=== PATIENT | male | born 1960 | race Caucasian/White ===

== ENCOUNTER 2018-05-10 22:47 | Observation (INO) | payer SELFPAY ==
[2018-05-10] MEDS ORDERED: Ketorolac Tromethamine 30 MG/ML VIAL ONE (23:46)
[2018-05-10 23:48] LABS: Troponin I Less than 0.010 ng/mL (< 0.028)
[2018-05-11] MEDS ORDERED: Fentanyl 100 MCG/2 ML VIAL ONE (00:25)
[2018-05-11] MEDS ORDERED: Ondansetron ODT 4 MG TAB PO PRN (00:49)
[2018-05-11] MEDS ORDERED: Ondansetron HCl/PF 4 MG/2 ML Vial IVP PRN (00:49)
[2018-05-11 01:11] VITALS: BMI 39.9
[2018-05-11 02:31] LABS: Troponin I Less than 0.010 ng/mL (< 0.028)
[2018-05-11 02:32] LABS: Anion Gap 17 mmol/L (10-20); BUN (Urea Nitrogen) 15 mg/dL (8.4-25.7); Calc. Creatinine Clearance 80 mL/min (70-130); Calcium 9.6 mg/dL (7.8-10.44); Carbon Dioxide 23 mmol/L (22-29); Chloride 102 mmol/L (98-107); Estimated GFR-MDRD 44; Glucose 153 mg/dL (70-105); Potassium 4.2 mmol/L (3.5-5.1); Sodium 138 mmol/L (136-145)
[2018-05-11 02:59] LABS: #Basophils 0.1 thou/uL (0.0-0.2); #Eosinphils 0.4 thou/uL (0.0-0.7); #Monocytes 1.2 thou/uL (0.11-0.59); #Neutrophils 9.1 thou/uL (1.40-6.50); %Basophils 0.5 % (0.0-1.0); %Eosinophils 3.1 % (0.0-10.0); %Lymphocytes 15.9 % (21.0-51.0); %Monocytes 9.6 % (0.0-10.0); %Neutrophils 70.8 % (42.0-75.0); Elliptocytes SLIGHT = 2-5 cells (100X) (0-1/hpf); Hemoglobin 10.8 g/dL (14.0-18.0); Hypochromia SLIGHT = 6-15 cells (100X) (0-5/hpf); MDiff Complete? YES; Mean Corpuscular HGB CONC 29.9 g/dL (32.0-36.0); Mean Corpuscular Volume 63.5 fL (78.0-98.0); Mean Platelet Volume 6.6 fL (7.4-10.4); PLT Morphology Comment Appears Adequate; Platelet Count 372 thou/uL (130-400); RBC Distribution Width 17.9 % (11.5-14.5); Reflex for Review?? YES; White Blood Cell (WBC) Count 12.9 thou/uL (4.8-10.8)
[2018-05-11] MEDS ORDERED: Cyclobenzaprine 10 MG TAB PO SCH (03:45)
[2018-05-11] MEDS: Acetaminophen 325 MG TAB PO PRN ×2 (03:55→13:48)
[2018-05-11] MEDS: Aspirin 81 mg Enteric Coated Tablet PO SCH (08:31)
[2018-05-11] MEDS: Famotidine 20 MG TAB PO SCH ×2 (08:31→20:06)
[2018-05-11] MEDS ORDERED: Aspirin 81 mg Enteric Coated Tablet PO SCH (09:00)
[2018-05-11] MEDS ORDERED: Dextrose 5% in Water 1,000 ML IV PRN (09:27)
[2018-05-11] MEDS ORDERED: HumaLOG 300 UNITS/3 ML VIAL SC PRN (09:27)
[2018-05-11] MEDS ORDERED: Dextrose 50% Abboject 50 ML SYRINGE SLOW IVP PRN (09:27)
--- NOTE | 2018-05-11 11:37 | HP ---
DATE OF ADMISSION: 05/11/2018 CHIEF COMPLAINT: Chest pain. HISTORY OF PRESENT ILLNESS: The patient is a 58-year-old male [facility]. The patient reports that in 12/2016, he had hear t attack, underwent a heart catheterization and had 3 stents placed at that time. In recovery, the p atnicole states he had a syncopal episode and went unconscious. He had a CT scan that confirmed that irene evans had 5 separate strokes, which he was told was basically a shower of emboli that resulted from the h eart catheterization that caused these strokes. They went through his right upper extremity access. The patient states subsequent to that, he was in a "coma" and was in the hospital for a total of 30 days. He was told that he had persistent occlusion of 85% and the plan was to follow up and have melissa t addressed at a later time; however, the patient essentially met financial ruin [facility] and he has not been able to have any significant followup. Yesterday, the patient started experiencing chest pain. It was around 2:00 in the afternoon. The nery ogden reports he had actually been having some intermittent similar chest pain for the last week and a half, but yesterday it persisted for a bit longer and then suddenly became more severe. Describes the pain as being similar to what he experienced when he had his previous CT. He states that he had associated palpitations. He felt short of breath and described his symptoms as feeling like someone was sitting on his chest. He had no associated nausea, but did have lightheadedness and radiation to the back and to the left shoulder. Subsequent to this pain, the patient started experiencing muscul ar cramps over his chest, neck, back, stomach and legs. He stated that with any movement at all, he would precipitate muscle cramp. He presented to the Emergency Department where he got some pain medi cations and reports that started to at least help manage the pain. He states that he continued to flood ve some symptoms overnight with the cramping, but has had no symptoms today. He denies having had an y particular change in activity. States he is generally debilitated and not capable of doing much. REVIEW OF SYSTEMS: A 10-system review was negative except for those things mentioned in the history of present illness. PAST MEDICAL HISTORY: Notable for the above-mentioned coronary artery disease. He also has osteoart hritis, recurrent kidney stones, hypertension, diabetes, hyperlipidemia, chronic kidney disease, whic h is apparently related to the recurrent kidney stones and also a history of the strokes as mentioned above. The patient has obstructive sleep apnea, but is unable to afford a CPAP machine. PAST SURGICAL HISTORY: Notable for the coronary stents as well as an appendectomy in childhood. FAMILY HISTORY: Mother of colon cancer. Father an accidental . He has no coronary d isease amongst his siblings. SOCIAL HISTORY: Denies alcohol, tobacco or drugs. He is . He is disabled, but unable to candido lify for disability because his makes 600 dollars a month. He lives in a on his mom[place]jr-ce w's property. He is full code. His or his kids would be surrogate decision maker. ALLERGIES: HYDROMORPHONE. ASPIRIN is also listed; however, the patient takes that on a daily basis. CURRENT MEDICATIONS: Vitamin D3 5000 units daily, aspirin 81 mg daily, metformin 1000 mg b.i.d., Top rol 75 mg b.i.d., potassium 10 mEq daily, glimepiride 2 mg daily, lisinopril 40 mg daily, atorvastati n 80 mg daily, Lasix 20 mg daily, meloxicam 15 mg daily, Plavix 75 mg daily. PHYSICAL EXAMINATION: VITAL SIGNS: Temperature 97.2, pulse 85, respirations 16, O2 sat 100% on room air, BP 158/77. GENERAL APPEARANCE: Obese, age appropriate male, in no distress. He is awake, alert, oriented, plea quin and cooperative. HEENT: PERRL. No OP lesions. He has a small oral airway and his pharyngeal orifice cannot be seen. NECK: Thick, supple, symmetric. CARDIOVASCULAR: Regular with no murmurs. He does have an occasional PVC heard. LUNGS: Clear to auscultation bilaterally with good chest wall expansion and air exchange. ABDOMEN: Mildly diffusely tender. No localization, no masses, no guarding, no rebound. No hepatosp lenomegaly. SKIN: Warm and dry without edema. Peripheral pulses are palpable. LABORATORY DATA: White count 12.9, hemoglobin 10.8, MCV is 63.5. Sodium 138, potassium 4.2, chlorid e 102, BUN 15, creatinine 1.63, glucose 153. Troponin is less than 0.1 x2. EKG shows pulmonary dise ase pattern with some left anterior fascicular block, otherwise sinus rhythm with occasional PVCs. C hest x-ray shows cardiac silhouette upper limit of normal, but no focal consolidations. IMPRESSION AND PLAN: 1. Chest pain in a patient with a history of known coronary disease and apparently still some pendin g occlusive disease that was never definitively addressed. The patient has negative troponins and do es not have specific ischemic changes on his EKG. His EKG is abnormal and they do not have a baselin e for comparison. We will continue with telemetry, aspirin. Consult Cardiology. Attempt to obtain his records from [facility] in [place]. 2. Diabetes. Continue with his oral medications. Continue Accu-Cheks and sliding scale. 3. Chronic kidney disease, unclear what his baseline is at this time. 4. Hypertension. Continue with beta blockers and TEETEE inhibitors. 5. Hyperlipidemia. Continue with the atorvastatin. 6. Muscle cramps. We will give some gentle hydration. 7. Mild leukocytosis, unclear etiology, appears to be stable. No evidence of active infection. 8. Microcytic anemia. We will order iron panel and Hemoccult.
[2018-05-11] MEDS ORDERED: Clopidogrel Bisulfate 75 MG TAB PO SCH (11:45)
[2018-05-11] MEDS ORDERED: Furosemide 20 MG TAB PO SCH (11:45)
[2018-05-11] MEDS ORDERED: Lisinopril 20 MG TAB PO SCH (11:45)
[2018-05-11] MEDS ORDERED: Atorvastatin Calcium 40 MG TAB PO SCH (11:45)
[2018-05-11] MEDS ORDERED: Meloxicam 15 MG TAB PO SCH (11:45)
[2018-05-11] MEDS ORDERED: Glimepiride 2 MG TAB PO SCH (11:45)
[2018-05-11] MEDS ORDERED: Metoprolol Tartrate 25 MG TAB PO SCH (11:45)
[2018-05-11] MEDS ORDERED: Potassium Chloride 10 MEQ TAB PO SCH (11:45)
[2018-05-11] MEDS: Nitroglycerin 0.4 MG TAB (25 Tab Bottle) SL PRN ×2 (14:26→14:33)
[2018-05-11 16:10] LABS: Troponin I Less than 0.010 ng/mL (< 0.028)
[2018-05-11] MEDS: metFORMIN 500 MG TAB PO SCH (17:43)
[2018-05-11] MEDS: Ketorolac Tromethamine 30 MG/ML VIAL IVP PRN (20:07)
[2018-05-11] MEDS: Metoprolol Tartrate 25 MG TAB PO SCH (20:07)
[2018-05-12 04:53] LABS: Anion Gap 14 mmol/L (10-20); BUN (Urea Nitrogen) 21 mg/dL (8.4-25.7); Calc. Creatinine Clearance 77 mL/min (70-130); Calcium 8.8 mg/dL (7.8-10.44); Carbon Dioxide 24 mmol/L (22-29); Chloride 97 mmol/L (98-107); Estimated GFR-MDRD 42; Glucose 142 mg/dL (70-105); Potassium 4.2 mmol/L (3.5-5.1); Sodium 131 mmol/L (136-145)
[2018-05-12 04:58] LABS: #Basophils 0.1 thou/uL (0.0-0.2); #Eosinphils 0.7 thou/uL (0.0-0.7); #Lymphocytes 2.8 thou/uL (1.20-3.40); #Monocytes 1.9 thou/uL (0.11-0.59); %Basophils 0.7 % (0.0-1.0); %Eosinophils 4.1 % (0.0-10.0); %Lymphocytes 16.1 % (21.0-51.0); %Monocytes 10.6 % (0.0-10.0); %Neutrophils 68.5 % (42.0-75.0); Hemoglobin 11.1 g/dL (14.0-18.0); Mean Corpuscular HGB CONC 29.5 g/dL (32.0-36.0); Mean Corpuscular Hemoglobin 18.9 pg (27.0-31.0); Mean Platelet Volume 6.8 fL (7.4-10.4); Platelet Count 434 thou/uL (130-400); RBC Distribution Width 17.9 % (11.5-14.5); Red Blood Cell (RBC) Count 5.87 mill/uL (4.70-6.10); White Blood Cell (WBC) Count 17.6 thou/uL (4.8-10.8)
[2018-05-12 08:59] LABS: Iron 23 ug/dL (65-175); Iron Binding Capacity, Total 359 mcg/dL (261-462)
[2018-05-12] MEDS ORDERED: Meloxicam 15 MG TAB PO SCH (09:00)
[2018-05-12] MEDS ORDERED: Senokot S 8.6-50 MG TAB PO SCH (10:30)
--- NOTE | 2018-05-12 11:20 | PDOC.PN ---
- Subjective Encounter Start Date: 05/12/18 Encounter Start Time: 10:30 Feeling some better today. Less pain. He does admit to having a history of iron deficiency anemia. He said it was substantial, but he has not taken any iron supplements. Has not had a BM for several days. - Objective Resuscitation Status: Resuscitation Status FULL:Full Resuscitation Vital Signs & Weight: Vital Signs (12 hours) Temp Pulse Resp BP BP Pulse Ox 05/12/18 07:39 98.1 F 81 18 137/63 97 05/12/18 03:40 97.9 F 67 145/69 H 94 L Weight Weight 248 lb 1.6 oz I&O: 05/11/18 05/12/18 05/13/18 06:59 06:59 06:59 Intake Total 240 1720 Output Total 1800 Balance 240 -80 Result Diagrams: 05/12/18 04:15 05/12/18 04:15 Additional Labs: Accuchecks 05/12/18 05/11/18 05/11/18 05:45 20:38 17:45 POC Glucose 151 H 144 H 271 H 05/11/18 11:13 POC Glucose 126 H Phys Exam - Physical Examination Constitutional: NAD Respiratory: no wheezing, no rales, no rhonchi Cardiovascular: RRR, no significant murmur Gastrointestinal: soft, non-tender, no distention, positive bowel sounds Musculoskeletal: no edema Psychiatric: normal affect, A&O x 3 Dx/Plan (1) Chest pain Code(s): R07.9 - CHEST PAIN, UNSPECIFIED Status: Acute Comment: Stress test today. (2) CAD (coronary artery disease) Code(s): I25.10 - ATHSCL HEART DISEASE OF [place] CORONARY ARTERY W/O ANG PCTRS Status: Acute (3) Diabetes mellitus Code(s): E11.9 - TYPE 2 DIABETES MELLITUS WITHOUT COMPLICATIONS Status: Acute Comment: Well controlled. (4) Hypertension Code(s): I10 - ESSENTIAL (PRIMARY) HYPERTENSION Status: Acute Qualifiers: Hypertension type: essential hypertension Qualified Code(s): I10 - Essential (primary) hypertension Comment: Home meds. (5) Iron deficiency anemia Code(s): D50.9 - IRON DEFICIENCY ANEMIA, UNSPECIFIED Status: Acute Comment: Checking labs. Hx of this. (6) Leukocytosis Code(s): D72.829 - ELEVATED WHITE BLOOD CELL COUNT, UNSPECIFIED Status: Acute Comment: May be secondary to the iron def. No evidence of infection. - Plan * above.
[2018-05-12] MEDS ORDERED: Lorazepam 2 MG/ML VIAL SLOW IVP SCH (13:15)
[2018-05-12] MEDS: Lisinopril 20 MG TAB PO SCH (14:58)
[2018-05-12] MEDS: Atorvastatin Calcium 40 MG TAB PO SCH (14:59)
[2018-05-12] MEDS: Metoprolol Tartrate 25 MG TAB PO SCH ×2 (15:00→20:51)
[2018-05-12] MEDS: Furosemide 20 MG TAB PO SCH (15:01)
[2018-05-12] MEDS: Famotidine 20 MG TAB PO SCH ×2 (15:01→20:51)
[2018-05-12] MEDS: metFORMIN 500 MG TAB PO SCH ×3 (15:02→16:17)
[2018-05-12] MEDS: Aspirin 81 mg Enteric Coated Tablet PO SCH (15:02)
[2018-05-12] MEDS: Glimepiride 2 MG TAB PO SCH (15:02)
[2018-05-12] MEDS: Clopidogrel Bisulfate 75 MG TAB PO SCH (15:02)
[2018-05-12] MEDS: Potassium Chloride 10 MEQ TAB PO SCH (15:02)
[2018-05-12] MEDS: Senokot S 8.6-50 MG TAB PO SCH (15:07)
--- NOTE | 2018-05-12 15:12 | NM ---
RADIONUCLIDE STRESS REST MYOCARDIAL PERFUSION SCAN WITH CT ATTENUATION CORRECTION AND SPECT IMAGING LEFT VENTRICULAR WALL MOTION EVALUATION AND EJECTION FRACTION: HISTORY: Dyslipidemia. Chest pain. FINDINGS: Moderate-sized area of markedly diminished radiotracer uptake involving the base to mid portion of th e lateral wall. No significant reversibility. Adenosine protocol. QGS analysis of gated SPECT images shows no focal wall motion abnormalities. Ejection fraction calcu lated at 43%. IMPRESSION: 1. Lateral wall scar. No evidence if ischemia. 2. Global hypokinesis with depressed ejection fraction of 43%. POS: FARIDEH
[2018-05-12 15:31] LABS: Bilirubin Negative (Negative); Blood, Urine Negative (Negative); Clarity CLEAR (Clear); Glucose, Urine (Dipstick) Negative (Negative); Leukocyte Negative (Negative); Nitrite Negative (Negative); Protein, Urine (Dipstick) Negative (Neg-Trace); Specific Gravity, Urine 1.004 (1.002-1.036); pH, Urine 6.5 (5.0-9.0)
--- NOTE | 2018-05-12 15:59 | CON ---
DATE OF CONSULT: 05/11/18 HISTORY OF PRESENT ILLNESS: The patient is a very pleasant 58-year-old gentleman who presents for evaluation of chest discomfort. The patient has a previous history of coronary artery disease. He suffered a myocardial infarction in 2017. In [place], he underwent emergent PTCA and stent placement. Following the procedure, the patient and suffered a cerebrovascular accident. He was in a coma for a prolonged period of time. The patient states he had several stents placed. The patient stated was doing well until about a month ago started having left- sided chest that radiated to her back and down his left arm. He states this usually lasted up to 15 minutes. On the day of admission, the patient had severe substernal chest discomfort that radiated down his left arm. He felt weak and short of breath. The patient came to the emergency room for further evaluation. The patient states that he has continued to have this persistent discomfort. At times it seems to be less severe. The patient denies any PND or orthopnea. PAST MEDICAL HISTORY: 1. Coronary artery disease. 2. Hypertension. 3. Diabetes mellitus. 4. Chronic renal insufficiency. 5. Dyslipidemia. 6. History of cerebrovascular accident. 7. Sleep apnea. PAST SURGICAL HISTORY: Appendectomy. SOCIAL HISTORY: Nonsmoker. No use of alcohol. FAMILY HISTORY: No strong family history of coronary artery disease. ALLERGIES: HYDROMORPHONE. MEDICATIONS: Toprol 50 XL daily, potassium 10 daily, glimepiride 2 daily, lisinopril 40 daily, Lipitor 80 at bedtime, Lasix 20 daily, Meloxicam 15 daily, and Plavix 75 Daily. REVIEW OF SYSTEMS: Ten-point system otherwise unremarkable. PHYSICAL EXAMINATION: GENERAL: This is an obese gentleman in no acute distress. VITAL SIGNS: Blood pressure 161/74. NECK: Showed no jugular distention. LUNGS: Clear to auscultation. HEART: Regular rate and rhythm, normal S1, S2, no murmurs. ABDOMEN: Distended, nontender. EXTREMITIES: Showed no edema. VASCULAR: Radial pulses are 2+. LABORATORY RESULTS: Sodium 130, potassium 4.2, chloride 102, bicarbonate 23, BUN 17, creatinine was 1.63, glucose 153. White blood cell count 1.9, hemoglobin 10.8, hematocrit 36.2, his platelets are 372. His EKG revealed him to have normal sinus rhythm with Q-waves suggestive of a previous inferior posterior infarct. IMPRESSION: 1. Chest pain suggestive of angina. 2. History of myocardial infarction. 3. History of percutaneous transluminal coronary angioplasty and stent placed. 4. History of cerebrovascular accident. 5. Diabetes mellitus. 6. Hypertension. 7. Obesity. PLAN: This gentleman presents with chest pain suggestive of angina. With the patient's history of a complication following stent placement with initially try to treat the patient medically. The patient has had persistent and severe pain and there has been no acute EKG changes or elevation in his cardiac enzymes. We will add Imdur to his medical regimen. We will plan on stress testing during this hospitalization to assess his cardiac risk. We will follow this patient with you through his hospitalization. BRI
--- NOTE | 2018-05-12 18:09 | EKG ---
Test Reason : Blood Pressure : / mmHG Vent. Rate : 095 BPM Atrial Rate : 095 BPM P-R Int : 120 ms QRS Dur : 076 ms QT Int : 384 ms P-R-T Axes : 000 -67 067 degrees QTc Int : 482 ms Sinus rhythm with Premature supraventricular complexes Pulmonary disease pattern Left anterior fascicular block Inferior-posterior infarct , age undetermined Abnormal ECG Confirmed by SANIYA FOY D.O. ([id number]), map editor CARISSA FLORIAN ([id number]) on 05/12/2018 6:09:20 PM Referred By: Confirmed By:SANIYA FOY D.O.
[2018-05-12] MEDS: Ketorolac Tromethamine 30 MG/ML VIAL IVP PRN (18:33)
[2018-05-13] MEDS: Ketorolac Tromethamine 30 MG/ML VIAL IVP PRN ×2 (00:40→12:30)
[2018-05-13] MEDS: Clopidogrel Bisulfate 75 MG TAB PO SCH (09:56)
[2018-05-13] MEDS: Potassium Chloride 10 MEQ TAB PO SCH (09:58)
[2018-05-13] MEDS: Famotidine 20 MG TAB PO SCH (09:59)
[2018-05-13] MEDS: Atorvastatin Calcium 40 MG TAB PO SCH (09:59)
[2018-05-13] MEDS: Furosemide 20 MG TAB PO SCH (09:59)
[2018-05-13] MEDS: Aspirin 81 mg Enteric Coated Tablet PO SCH (09:59)
[2018-05-13] MEDS: Metoprolol Tartrate 25 MG TAB PO SCH (10:00)
[2018-05-13] MEDS: metFORMIN 500 MG TAB PO SCH (10:01)
[2018-05-13] MEDS: Lisinopril 20 MG TAB PO SCH (10:01)
[2018-05-13] MEDS: Glimepiride 2 MG TAB PO SCH (10:02)
[2018-05-13] MEDS: Senokot S 8.6-50 MG TAB PO SCH (10:02)
[2018-05-13 15:33] VITALS: TEMP 98.3
[2018-05-13 15:34] VITALS: BP 178/78
--- NOTE | 2018-05-14 21:55 | DIS ---
DATE OF ADMISSION: 05/10/2018 DATE OF DISCHARGE: 05/13/2018 DISCHARGE DIAGNOSES: 1. Chest pain. 2. History of coronary artery disease. 3. Diabetes mellitus. 4. Hypertension. 5. Iron deficiency anemia. 6. Leukocytosis secondary to iron deficiency. 7. Obesity. HOSPITAL COURSE: This patient is a 58-year-old male with a history of significant coronary artery di sease, who suffered a myocardial infarction approximately 1-1/2 years prior to admission. At that [facility], he was at [facility] in [place], [place]. The patient underwent a heart catheterization with 3 sten ts placed, but was told he had persistent 85% blockage posteriorly and records indicated that it was likely an OM1 branch lesion. The patient reports that he was supposed to follow up on this, but fazal use of the cost of his initial admission, which had resulted in complications of stroke with coma and prolonged hospital stay, he was unable to follow up due to financial reasons. The patient presented to the [facility] complaining of acute chest pain reminiscent of his prior sy mptoms. There, the patient had a negative workup, and was transferred to [facility] for further ev aluation. Specifically, of note, the patient's troponins were negative. Chest x-ray was upper limit s of normal. His labs were notable for some leukocytosis with anemia and thrombocytopenia. Th e patient was placed in observation on telemetry. He continued to have negative serial cardiac marke rs and his telemetry remained normal sinus rhythm. Cardiology was consulted and the patient underwen t a nuclear medicine stress test, which revealed the prior scar in the lateral wall, but no evidence of reversible ischemia and a global hypokinesis with depressed EF at 43%. With that, the patient is stable for discharge. Of note, the patient did receive some Toradol while in the hospital, which see med to improve his symptoms somewhat. Also, of note, the patient had repeat labs to assess his iron panel. His iron level was 23, TIBC was 359, and percent saturation was 6%. It was felt that the pat ient's leukocytosis and thrombocytopenia were part of his iron deficiency manifestations as he was af ebrile and had no evidence of infection otherwise. The patient's symptoms had essentially resolved a t the time of discharge. PHYSICAL EXAMINATION: VITAL SIGNS: At the time of discharge, his temperature was 98.3, pulse 76, respirations 20, O2 satur ation 97% on room air, BP is 178/78. GENERAL: The patient is awake, alert, oriented, pleasant. HEART: Regular rate and rhythm without murmurs. Mild tenderness to palpation in the chest wall. LUNGS: CTAB. ABDOMEN: Benign. EXTREMITIES: Warm and dry without edema. DISPOSITION: The patient is discharged to home. DISCHARGE INSTRUCTIONS: He is to continue with a diabetic heart healthy diet. His activity level is as tolerated. He will remain on his usual home medications to include lisinopril 40 mg p.o. daily; atorvastatin 80 mg every day; furosemide 20 mg every day; meloxicam 15 mg every day; clopidogrel 75 m g every day; aspirin 81 mg every day; metformin 1000 mg b.i.d.; metoprolol 75 mg b.i.d.; potassium ch loride 10 mEq daily; glimepiride 2 mg every day; vitamin D3, 5000 units daily. He will have addition of isosorbide 60 mg every day, ferrous sulfate 325 every day, nitroglycerin 0.4 mg sublingual every 5 minutes p.r.n. He is to follow up with Dr. Poly Wetzel and Dr. Felix in 3-4 weeks. He can return to the Emergency Department should he have any problems prior to that time.
== END 2018-05-13 14:37 | disposition home or self-care (01) ==
LOC: ERS 22:47 → 2NO 05-11 00:45
PROVIDERS: ADMIT Internal Medicine; ATTEND Internal Medicine
DX: R07.9 Chest pain, unspecified (principal); I25.10 Atherosclerotic heart disease of native coronary artery without angina pectoris; E11.9 Type 2 diabetes mellitus without complications; I10 Essential (primary) hypertension; D50.9 Iron deficiency anemia, unspecified; D72.829 Elevated white blood cell count, unspecified; E66.9 Obesity, unspecified; Z79.02 Long term (current) use of antithrombotics/antiplatelets; Z79.899 Other long term (current) drug therapy; Z79.82 Long term (current) use of aspirin
CPT/HCPCS: 36415; 36416; 78452; 80048; 81003; 82274; 83540; 83550; 84484; 85025; 85060; 90471; 90732; 93005; 93017; 96374; 96375; 96376; A9500; G0009; G0378; J0153; J1885; J2060; J3010

== ENCOUNTER 2018-07-24 21:26 | Observation (INO) | payer OTHER, SELFPAY ==
[2018-07-24] MEDS ORDERED: Morphine 4 MG/ML VIAL ONE (21:43)
[2018-07-24] MEDS ORDERED: Ondansetron PF 4 MG/2 ML Vial ONE (21:44)
--- NOTE | 2018-07-24 21:59 | RAD ---
PORTABLE CHEST 07/24/18 PROVIDED CLINICAL HISTORY: Chest pain. FINDINGS: Comparison 05/10/18. The cardiac and mediastinal silhouette is unchanged in appearance. Lungs appear clear. No pleural flu id or pneumothorax apparent. IMPRESSION: Cardiomegaly without evidence for an acute cardiopulmonary process. POS: TED
[2018-07-24 22:12] LABS: ALT (SGPT) 24 U/L (8-55); AST (SGOT) 20 U/L (5-34); Albumin 3.7 g/dL (3.5-5.0); Alkaline Phosphatase 81 U/L (40-150); Anion Gap 10 mmol/L (10-20); BUN (Urea Nitrogen) 17 mg/dL (8.4-25.7); Bilirubin, Total 0.3 mg/dL (0.2-1.2); CK (CPK) 178 U/L (30-200); Calc. Creatinine Clearance 0 mL/min (70-130); Calcium 9.2 mg/dL (7.8-10.44); Carbon Dioxide 27 mmol/L (22-29); Chloride 102 mmol/L (98-107); Estimated GFR-MDRD 49; Globulin 3.1 g/dL (2.4-3.5); Glucose 173 mg/dL (70-105); Potassium 3.6 mmol/L (3.5-5.1); Protein, Total 6.8 g/dL (6.0-8.3); Sodium 135 mmol/L (136-145)
[2018-07-24 22:15] LABS: #Basophils 0.1 thou/uL (0.0-0.2); #Eosinphils 0.6 thou/uL (0.0-0.7); #Monocytes 1.1 thou/uL (0.11-0.59); #Neutrophils 7.7 thou/uL (1.40-6.50); %Basophils 0.7 % (0.0-1.0); %Eosinophils 5.3 % (0.0-10.0); %Lymphocytes 17.1 % (21.0-51.0); %Monocytes 9.4 % (0.0-10.0); %Neutrophils 67.5 % (42.0-75.0); Elliptocytes SLIGHT = 2-5 cells (100X) (0-1/hpf); Hemoglobin 11.8 g/dL (14.0-18.0); MDiff Complete? YES; Mean Corpuscular HGB CONC 29.8 g/dL (32.0-36.0); Mean Corpuscular Hemoglobin 20.4 pg (27.0-31.0); Mean Corpuscular Volume 68.4 fL (78.0-98.0); Mean Platelet Volume 6.9 fL (7.4-10.4); Microcytosis SLIGHT = 6-15 cells (100X) (0-5/hpf); Platelet Count 281 thou/uL (130-400); Platelet Morphology Comment Appears Adequate; RBC Distribution Width 18.8 % (11.5-14.5); Red Blood Cell (RBC) Count 5.77 mill/uL (4.70-6.10); White Blood Cell (WBC) Count 11.4 thou/uL (4.8-10.8)
--- NOTE | 2018-07-24 23:32 | PDOC.FPRHP ---
- History of Present Illness Chief Complaint: Chest pain History of Present Illness: Pt is a 58 yo M with HTN, CAD, DM2 presenting for substernal and left sided chest pain at rest for the last week, worsening significantly today while sitting watching TV. Pain is substernal and left-sided, feels like pressure, radiates down left arm with numbness down left arm, and lasts up to 1.5 hours, rated 8/10. Pain is exertional, and nitro at home did not improve his pain. Nitro, Morphine, and tylenol here improved his pain to 5-6/10. He also ascribes exertional dyspnea, bilateral leg swelling, denies nausea or sweating. He has a history of cardiac stent placementx3 with strokes afterwards (patient's family states, "5 strokes") in 2016. He sees Dr. Felix. He had a recent cardiac stress test here in May 2018. Pt denies melena or hematochezia, but states he had a positive stool test for blood recently with his PCP and has a colonoscopy scheduled. Denies GERD symptoms. In the ED, EKG was WNL, he was given nitropaste, morphine, IV tylenol, ASA 325, and zofran. - Allergies/Adverse Reactions Allergies Allergy/AdvReac Type Severity Reaction Status Date / Time hydromorphone [From Dilaudid] Allergy Verified 05/11/18 01:07 aspirin AdvReac Verified 05/11/18 01:17 - Home Medications Medication Instructions Recorded Confirmed Type Aspirin [Low Dose Aspirin EC] 81 mg PO DAILY 05/11/18 07/25/18 History Atorvastatin Calcium 80 mg PO DAILY 05/11/18 07/25/18 History Cholecalciferol (Vitamin D3) 5,000 unit PO DAILY 05/11/18 07/25/18 History [Vitamin D3] Clopidogrel Bisulfate [Plavix] 75 mg PO DAILY 05/11/18 07/25/18 History Furosemide 20 mg PO DAILY 05/11/18 07/25/18 History Glimepiride 2 mg PO QAM-WM 05/11/18 07/25/18 History Lisinopril 40 mg PO DAILY 05/11/18 07/25/18 History Metoprolol Tartrate 75 mg PO BID 05/11/18 07/25/18 History Potassium Chloride [Klor-Con 10] 10 meq PO DAILY 05/11/18 07/25/18 History metFORMIN HCl [Metformin HCl] 1,000 mg PO BID 05/11/18 07/25/18 History Ferrous Sulfate 325 mg PO DAILY #30 tablet 05/13/18 07/25/18 Rx Isosorbide Mononitrate [Imdur] 60 mg PO DAILY #30 tab 05/13/18 07/25/18 Rx Nitroglycerin 0.4 mg SL Q5MIN PRN #30 tab.subl 05/13/18 07/25/18 Rx - History PMHx: Cardiac stents 2017 with resulting "5 strokes", ureter stents for renal lithiasis, DM2, HTN, HLD, anemia, gout PSHx: Cardiac stents in 2017, ureteral stents for renal lithiasis FHx: colon cancer @ age 31 in mother, uncle with brain cancer, uncle with prostate cancer; otherwise noncontributory Social: Denies tobacco, alcohol, or drug use - Review of Systems General: reports: other (denies diaphoresis). denies: fever/chills, weight/ appetite/sleep changes Eyes: denies: eye pain, vision changes, other (denies hearing changes or ear pain) ENT: reports: nasal congestion, rhinorrhea Respiratory: reports: cough, congestion, shortness of breath, exercise intolerance Cardiovascular: reports: chest pain, palpitation, edema, orthopnea, other ( report he bleeds easily) Gastrointestinal: reports: diarrhea (chronic), GI bleeding (per PCP vist). denies: nausea, vomiting, constipation, abdominal pain Genitourinary: denies: dysuria, other (denies hematuria) Skin: reports: lesions (itchy lesion right scalp). denies: rashes Musculoskeletal: reports: arthritis/arthralgias (hands and knees) Neurological: reports: numbness (bilateral feet). denies: weakness Psychological: denies: anxiety, depression - Vital signs BP: [ 147/77] HR: [64] RR: [16] Tmax: [98.6] Pox: 99% on [RA] Wt: [118 kg] - Physical Exam Constitutional: NAD, awake, alert and oriented HEENT: normocephalic and atraumatic, PERRLA, EOMI, TM's clear and intact, grossly normal hearing, MMM, oropharynx clear Neck: supple, no LAD Heart: RRR, normal S1/S2, pulses present, no edema -Heart: S3 present Lungs: CTAB, no respiratory distress, good air movement, no rales/rhonchi, no wheezing Abdomen: soft, non-tender, bowel sounds present, other (rounded abdomen) Musculoskeletal: normal structure, normal tone Neurological: no focal deficit Skin: no rash/lesions, good turgor, capillary refill <2 seconds Heme/Lymphatic: no unusual bruising or bleeding, no petechia Psychiatric: normal mood and affect, good judgment and insight, other (poor memory, looked to for many answers) FMR H&P: Results - Labs Result Diagrams: 07/24/18 21:39 07/24/18 21:39 Lab results: WBC 11.4 thou/uL (4.8-10.8) H 07/24/18 21:39 Hgb 11.8 g/dL (14.0-18.0) L 07/24/18 21:39 Hct 39.5 % (42.0-52.0) L 07/24/18 21:39 MCV 68.4 fL (78.0-98.0) L 07/24/18 21:39 Plt Count 281 thou/uL (130-400) 07/24/18 21:39 Neutrophils % 67.5 % (42.0-75.0) 07/24/18 21:39 Sodium 135 mmol/L (136-145) L 07/24/18 21:39 Potassium 3.6 mmol/L (3.5-5.1) 07/24/18 21:39 Chloride 102 mmol/L (98-107) 07/24/18 21:39 Carbon Dioxide 27 mmol/L (22-29) 07/24/18 21:39 BUN 17 mg/dL (8.4-25.7) 07/24/18 21:39 Creatinine 1.49 mg/dL (0.7-1.3) H 07/24/18 21:39 Glucose 173 mg/dL (70-105) H 07/24/18 21:39 Calcium 9.2 mg/dL (7.8-10.44) 07/24/18 21:39 Total Bilirubin 0.3 mg/dL (0.2-1.2) 07/24/18 21:39 AST 20 U/L (5-34) 07/24/18 21:39 ALT 24 U/L (8-55) 07/24/18 21:39 Alkaline Phosphatase 81 U/L (40-150) 07/24/18 21:39 Creatine Kinase 178 U/L (30-200) 07/24/18 21:39 Serum Total Protein 6.8 g/dL (6.0-8.3) 07/24/18 21:39 Albumin 3.7 g/dL (3.5-5.0) 07/24/18 21:39 - EKG Interpretation EKG: WNL FMR H&P: A/P - Problem List (1) CAD (coronary artery disease) Current Visit: No Status: Acute Code(s): I25.10 - ATHSCL HEART DISEASE OF [place] CORONARY ARTERY W/O ANG PCTRS (2) Chest pain Current Visit: No Status: Acute Code(s): R07.9 - CHEST PAIN, UNSPECIFIED Comment: Stress test today. (3) Diabetes mellitus Current Visit: No Status: Chronic Code(s): E11.9 - TYPE 2 DIABETES MELLITUS WITHOUT COMPLICATIONS Comment: Well controlled. (4) Hypertension Current Visit: No Status: Chronic Code(s): I10 - ESSENTIAL (PRIMARY) HYPERTENSION Qualifiers: Hypertension type: essential hypertension Qualified Code(s): I10 - Essential (primary) hypertension Comment: Home meds. (5) Hx of gout Current Visit: Yes Status: Chronic Code(s): Z87.39 - PERSONAL HISTORY OF DISEASES OF THE MS SYS AND CONN TISS - Plan 58 yo M presents for typical chest pain #Typical Chest pain, [place] vs GERD vs PE vs other -Substernal, pressure, possibly relieved with nitro, worse with exertion. Heart score of 5. -Vitals stable -Trop negx1, trend -CKMB pending -BNP in 200s -EKG WNL -Recent stress test in May 2018 -Showed lateral wall scar, global hypokinesis with EF 43% -Cardiac hx of stent placement x3 in 2017 with strokes postop -Patient follows with Dr. Felix -Admit to tele obs -Consult Dr. Felix, cardiology in the AM -GI cocktail, patient denies GERD sx but has recent hx of +FOBT -Nitro PRN #DM2 #CHF -BNP elevated -Consider echo -Does not appear fluid overloaded at this time #HTN -home meds #HLD/CAD #Anemia #Hx of Gout Admit to Tele obs Ppx: lovenox Full code FMR H&P: Upper Level - Pertinent history 58 yo CM with PMH CAD s/p stent x3, HTN, DM2, iron deficiency anemia presenting with chest pain. 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 Pt notes it does not compare to [place] CP he had in 2017. Pt states he had minimal relief of pain after receiving nitro from EMS. Pt reports intermittent CP similar to this over the last two weeks. ROS otherwise negative. PCP: Poly Wetzel, [employer] Hydramatic Specialist: Dr. Geraldo Felix - Pertinent findings VSS Gen: obese in NAD CV: RRR, no chest wall TTP Resp: unlabored, CTAB Abd: obese, soft, NTTP - Plan Date/Time: 07/24/18 5052 I, Tan Storey MD PGY3, have evaluated this patient and agree with findings/ plan as outlined by dietary internship resident. Pertinent changes/additions are listed here. 1. Typical chest pain in setting of CAD -Pt presents with substernal CP that is exertional and mildly improved with nitroglycerin. Negative troponin. Pt has a history of CAD with stent x3 in 2017. With risk factors and presentation, pt has a HEART score of 5. Review of records shows that pt had a cardiolite stress test in May 2018 during last hospitalization. Last LHC was in December of 2016 with [place] and stent placement. -Will admit pt to telemetry observation for routine CP workup with cardiac enzymes q3h. -Will plan to consult cardiology in AM since pt had stress test in May 2018. -Nitro PRN. 2. Elevated BNP -Pt has no signs/symptoms of fluid overload. Per last stress test EF 43%. -Consider TTE if pt has not had one outpatient. 3. Iron deficiency anemia -Near baseline. Continue home medications and monitor. 4. CKD3 -At baseline. 5. HTN 6. DM2 Home medications will be continued for chronic conditions. FULL code PPx: Lovenox for VTE, no GI indicated. disposition: Admit to telemetry observation for anticipated length of stay less than two midnights, pending clinical course. Addendum - Attending - Attending Attestation Date/Time: 07/24/18 7237 I personally evaluated the patient and discussed the management with Dr. Torsten Sifuentes /[place]. I agree with the History, Examination, Assessment and Plan documented above with any addition or exceptions noted below. History of CAD here for recurrent chest pain suspicious for angina. Initial enzymes negative and EKG wnl. Monitor and consult cardiology in AM.
[2018-07-25] MEDS ORDERED: Lidocaine 2% Viscous Solution 10 ML, Aluminum & Magnesium Hydroxide 30 ML SSW SCH (00:30)
[2018-07-25] MEDS ORDERED: Enoxaparin Sodium 40 MG/0.4 ML SYRINGE SC SCH ×2 (00:39→21:00)
[2018-07-25] MEDS ORDERED: Ondansetron ODT 4 MG TAB PO PRN (00:39)
[2018-07-25 00:43] VITALS: BMI 41.4
[2018-07-25] MEDS ORDERED: Acetaminophen 325 MG TAB PO PRN (00:53)
[2018-07-25] MEDS ORDERED: Ondansetron PF 4 MG/2 ML Vial IVP PRN (00:53)
[2018-07-25] MEDS ORDERED: Ondansetron ODT 4 MG TAB SL PRN (00:53)
[2018-07-25] MEDS ORDERED: Nitroglycerin 0.4 MG TAB (25 Tab Bottle) SL PRN (00:56)
[2018-07-25 01:48] LABS: CKMB 2.1 ng/mL (0-6.6); Troponin I Less than 0.010 ng/mL (< 0.028)
[2018-07-25 04:44] LABS: Troponin I Less than 0.010 ng/mL (< 0.028)
--- NOTE | 2018-07-25 05:54 | PDOC.FM ---
- Subjective Subjective: 58 yo male seen at bedside this AM. Patient states he continues to have the substernal chest pain with radiation. He states it was improved with nitro and GI cocktail. Patient states that he also has problems with urinary retention at times. He states that he has had trouble since his "strokes." He also states that he needs to be cathed when he has those problems. He states that he hasn't had SOB, abdominal pain, cough, fever, n/v/d. No other complaints. - Objective MAR Reviewed: Yes Vital Signs & Weight: Vital Signs (12 hours) Temp Pulse Resp BP BP Pulse Ox 07/25/18 05:01 97.4 F L 73 16 151/69 H 96 07/25/18 00:30 98.1 F 65 13 178/82 H 98 Weight Weight 116.483 kg I&O: 07/23/18 07/24/18 07/25/18 06:59 06:59 06:59 Intake Total 360 Balance 360 Result Diagrams: 07/24/18 21:39 07/24/18 21:39 Phys Exam - Physical Examination Constitutional: NAD HEENT: moist MMs Neck: no nodes, supple Respiratory: no wheezing, clear to auscultation bilateral Cardiovascular: RRR, no significant murmur Gastrointestinal: soft, non-tender, positive bowel sounds Musculoskeletal: no edema, pulses present Neurological: non-focal, normal sensation, moves all 4 limbs Lymphatic: no nodes Psychiatric: normal affect, A&O x 3 Skin: no rash, cap refill <2 seconds Dx/Plan (1) Chest pain at rest Code(s): R07.9 - CHEST PAIN, UNSPECIFIED Status: Acute (2) Hx of gout Code(s): Z87.39 - PERSONAL HISTORY OF DISEASES OF THE MS SYS AND CONN TISS Status: Chronic (3) CAD (coronary artery disease) Code(s): I25.10 - ATHSCL HEART DISEASE OF [place] CORONARY ARTERY W/O ANG PCTRS Status: Acute (4) Iron deficiency anemia Code(s): D50.9 - IRON DEFICIENCY ANEMIA, UNSPECIFIED Status: Acute (5) Diabetes mellitus Code(s): E11.9 - TYPE 2 DIABETES MELLITUS WITHOUT COMPLICATIONS Status: Chronic (6) Hypertension Code(s): I10 - ESSENTIAL (PRIMARY) HYPERTENSION Status: Chronic Qualifiers: Hypertension type: essential hypertension Qualified Code(s): I10 - Essential (primary) hypertension (7) Chronic kidney disease (CKD) Code(s): N18.9 - CHRONIC KIDNEY DISEASE, UNSPECIFIED Status: Acute (8) Urinary retention Code(s): R33.9 - RETENTION OF URINE, UNSPECIFIED Status: Acute - Plan Plan: Typical Chest pain, [place] vs GERD vs PE vs other -Substernal, pressure, possibly relieved with nitro, worse with exertion. Heart score of 5. -Vitals stable -Troponin negative -EKG WNL -Recent stress test in May 2018 -Showed lateral wall scar, global hypokinesis with EF 43% -Cardiac hx of stent placement x3 in 2017 -Patient follows with Dr. Felix, consulted appreciate his recs. -NPO until Cardiology evaluation -Nitro PRN DM2 - Continue home meds CHF -BNP elevated -Consider echo, but will let Dr. Felix determine since he may have had recent echo in his office. -Does not appear fluid overloaded at this time HTN -home meds HLD/CAD - Continue home meds CKD vs. BERONICA - Appears stable from May 2018 - Recommend outpatient follow up Iron Deficiency Anemia - At baseline - Continue to trend - Outpatient follow up. Urinary Retention - Per patient history - Ordered bladder scan and intermittent cath - Offered Flomax, but patient has declined and hopes it is temporary. Will re- evaluate. Disposition: Stable, will continue plan of care and await Cardiology recommendations. Addendum - Attending - Attending Attestation Date/Time: 07/25/18 2258 I personally evaluated the patient and discussed the management with Dr. Shin. I agree with the History, Examination, Assessment and Plan documented above with any addition or exceptions noted below. Patient stable, continues to complain of mild chest pain. Awaiting cardiology recs due to history of CAD and heart cath and recent stress testing.
[2018-07-25] MEDS ORDERED: hydrALAZINE 20 MG/ML VIAL SLOW IVP PRN (06:00)
[2018-07-25] MEDS ORDERED: Furosemide 20 MG TAB PO SCH (09:00)
[2018-07-25] MEDS ORDERED: metFORMIN 500 MG TAB PO SCH (09:00)
[2018-07-25] MEDS: Aspirin 81 mg Enteric Coated Tablet PO SCH (09:00)
[2018-07-25] MEDS: Atorvastatin Calcium 40 MG TAB PO SCH (09:02)
[2018-07-25] MEDS: Clopidogrel Bisulfate 75 MG TAB PO SCH (09:02)
[2018-07-25] MEDS: Potassium Chloride 10 MEQ TAB PO SCH (09:03)
[2018-07-25] MEDS: Lisinopril 20 MG TAB PO SCH (09:03)
[2018-07-25] MEDS: Metoprolol Tartrate 25 MG TAB PO SCH ×2 (09:03→20:28)
[2018-07-25] MEDS ORDERED: Lidocaine 1% (PF) 30 ML VIAL ONE (09:27)
[2018-07-25] MEDS ORDERED: Midazolam HCl 2 mg/2 ml Vial ONE (09:30)
[2018-07-25] MEDS ORDERED: Sodium Chloride 0.9% 200 ML IV PRN (10:15)
[2018-07-25] MEDS: Ferrous Sulfate 325 MG TAB PO SCH (10:54)
[2018-07-25] MEDS: Glimepiride 2 MG TAB PO SCH (10:55)
--- NOTE | 2018-07-25 12:55 | EKG ---
Test Reason : CHEST PAIN Blood Pressure : / mmHG Vent. Rate : 079 BPM Atrial Rate : 079 BPM P-R Int : 160 ms QRS Dur : 082 ms QT Int : 410 ms P-R-T Axes : 031 -77 097 degrees QTc Int : 470 ms Normal sinus rhythm with sinus arrhythmia Possible Left atrial enlargement Pulmonary disease pattern Left anterior fascicular block Abnormal ECG Confirmed by BRENDAN GALLEGO ([id number]), editor publications CARISSA FLORIAN ([id number]) on 07/25/2018 12:55:33 PM Referred By: Confirmed By:BRENDAN GALLEGO
[2018-07-25] MEDS ORDERED: Iopamidol 370 76% 100 ML VIAL ONE (15:01)
[2018-07-26] MEDS ORDERED: Metoprolol Tartrate 50 MG TAB PO SCH ×2 (03:30→21:00)
--- NOTE | 2018-07-26 04:07 | CON ---
DATE OF CONSULTATION: HISTORY OF PRESENT ILLNESS: The patient is a 58-year-old gentleman with a history of coronary artery disease, who presents with recurrent chest discomfort. The patient, a year ago, suffered a myocardial infarction. He had several stents placed. This was done in [place]. The patient subsequently has had multiple episodes of substernal chest discomfort. He also following the cardiac procedure, suffered a cerebral vascular accident the day after his stent placement. The patient was admitted in May of 2018 with recurrent chest pain. He underwent a Cardiolite stress test that revealed to have no evidence of ischemia. The patient has been on medical therapy. He has been using sublingual nitroglycerin. The patient states for the past week, he has had persistent left-sided chest discomfort. This chest pain is left-sided and does not radiate. He came to the emergency room with recurrent pain. He said the only relief has been with morphine. The patient reports that he continues to have chest discomfort. PAST MEDICAL HISTORY: 1. Coronary artery disease. 2. Hypertension. 3. Cardiomyopathy. 4. Dyslipidemia. 5. Renal insufficiency. 6. Diabetes mellitus. PAST SURGICAL HISTORY: Appendectomy. ALLERGIES: MEDICATIONS: Include, 1. Aspirin 81 daily. 2. Lisinopril 40 daily. 3. Metoprolol tartrate 75 b.i.d. 4. Potassium 10 daily. 5. Lipitor 80 at bedtime. 6. Lasix 20 daily. 7. Glimepiride 2 mg p.o. daily. 8. Metformin 1000 b.i.d. 9. Plavix 75 daily. 10. Iron sulfate 325 daily. 11. Imdur 60 q.a.m. SOCIAL HISTORY: Nonsmoker. FAMILY HISTORY: No strong family history of heart disease REVIEW OF SYSTEMS: Ten-point systems otherwise unremarkable. PHYSICAL EXAMINATION: GENERAL: Obese gentleman, in no acute distress. VITAL SIGNS: Blood pressure 171/82. NECK: No jugular venous distention. LUNGS: Clear to auscultation. HEART: Regular rate and rhythm. Normal S1, S2. ABDOMEN: Distended. EXTREMITIES: Show no edema. VASCULAR: Radial pulses 2+. LABORATORY DATA: Sodium 135, potassium 3.6, chloride 102, bicarbonate 27, BUN 17, creatinine 1.49. Troponin less than 0.01. His white blood cell count 11.4, hemoglobin 11.8, hematocrit 39.5, and platelets 281. His EKG revealed normal sinus rhythm with incomplete right bundle branch block. UA suggestive of previous inferior infarct. IMPRESSION: 1. Chest pain with some features suggestive of angina. 2. History of PTCA and stent placement. 3. Ischemic cardiomyopathy. 4. Hypertension. 5. Diabetes mellitus. 6. Dyslipidemia. 7. Obesity. This gentleman presents with chest pain with some features suggestive of angina. However, there are no EKG changes and his cardiac enzymes revealed no evidence of myocardial infarction. The patient's recent stress test showed no evidence of ischemia. Because of his persistent symptoms, I have discussed the option of undergoing a repeat catheterization. The patient states he strongly prefers to undergo repeat evaluation. He understands that there is risk involving the procedure including IL, bleeding, recurrent CVA, cardiac arrhythmias, and cardiac . Despite these risks, the patient wished to proceed. PLAN: Proceed with cardiac catheterization. Job ID: [id number] BRI
--- NOTE | 2018-07-26 06:08 | PDOC.FM ---
- Subjective Subjective: 58 yo male seen at bedside this AM. Patient states he feels better overall. He states his chest pain is resolved. He states that he does not have insurance, but Dr. Felix set him up with a month of free samples of Ranexa. He denies sob, n/v/d, fevers, or chills. Patient states he is ready to go home today. - Objective MAR Reviewed: Yes Vital Signs & Weight: Vital Signs (12 hours) Temp Pulse Resp BP BP Pulse Ox 07/26/18 04:23 80 142/75 H 07/26/18 03:05 97.9 F 77 18 197/97 H 99 07/26/18 00:44 72 176/87 H 07/25/18 23:36 85 07/25/18 23:28 98.2 F 72 16 180/93 H 97 07/25/18 20:05 97.4 F L 85 22 H 200/93 H 93 L Weight Weight 115.031 kg I&O: 07/24/18 07/25/18 07/26/18 06:59 06:59 06:59 Intake Total 360 1220 Output Total 1804 Balance 360 -584 Result Diagrams: 07/24/18 21:39 07/24/18 21:39 Phys Exam - Physical Examination Constitutional: NAD HEENT: moist MMs Neck: supple, full ROM Respiratory: no wheezing, clear to auscultation bilateral Cardiovascular: RRR, no significant murmur Gastrointestinal: soft, non-tender, no distention, positive bowel sounds Musculoskeletal: no edema, pulses present Neurological: non-focal, normal sensation, moves all 4 limbs Psychiatric: normal affect, A&O x 3 Skin: no rash Dx/Plan (1) Chest pain at rest Code(s): R07.9 - CHEST PAIN, UNSPECIFIED Status: Acute (2) Hx of gout Code(s): Z87.39 - PERSONAL HISTORY OF DISEASES OF THE MS SYS AND CONN TISS Status: Chronic (3) CAD (coronary artery disease) Code(s): I25.10 - ATHSCL HEART DISEASE OF [place] CORONARY ARTERY W/O ANG PCTRS Status: Acute (4) Iron deficiency anemia Code(s): D50.9 - IRON DEFICIENCY ANEMIA, UNSPECIFIED Status: Acute (5) Diabetes mellitus Code(s): E11.9 - TYPE 2 DIABETES MELLITUS WITHOUT COMPLICATIONS Status: Chronic (6) Hypertension Code(s): I10 - ESSENTIAL (PRIMARY) HYPERTENSION Status: Chronic Qualifiers: Hypertension type: essential hypertension Qualified Code(s): I10 - Essential (primary) hypertension (7) Chronic kidney disease (CKD) Code(s): N18.9 - CHRONIC KIDNEY DISEASE, UNSPECIFIED Status: Acute (8) Urinary retention Code(s): R33.9 - RETENTION OF URINE, UNSPECIFIED Status: Acute - Plan Plan: Typical Chest pain, [place] vs GERD vs PE vs other - Substernal, pressure, possibly relieved with nitro, worse with exertion. Heart score of 5. - BP elevated otherwise vitals WNL - Troponin negative - EKG WNL - Recent stress test in May 2018 -Showed lateral wall scar, global hypokinesis with EF 43% - Cardiac hx of stent placement x3 in 2017 - Patient follows with Dr. Felix, consulted appreciate his recs. - Repeat Cardiac Catheterization is unremarkable. - Nitro PRN - On Imdur at home - Cardiology initiated Ranexa DM2 - Continue home meds CHF - BNP elevated - Consider echo, but will let Dr. Felix determine since he may have had recent echo in his office. - Does not appear fluid overloaded at this time HTN - home meds - HTN overnight - Required PRN medication - Will trend and likely increase home regimen prior to discharge HLD/CAD - Continue home meds CKD vs. BERONICA - Appears stable from May 2018 - Recommend outpatient follow up Iron Deficiency Anemia - At baseline - Continue to trend - Outpatient follow up. Urinary Retention - Per patient history - Resolved Disposition: Stable, will continue plan of care. Patient is likely stable for discharge today. Addendum - Attending - Attending Attestation Date/Time: 07/26/18 0901 I personally evaluated the patient and discussed the management with Dr. Shin. I agree with the History, Examination, Assessment and Plan documented above with any addition or exceptions noted below. Patient doing well, no recurrent chest pain. S/p cath yesterday. Await further cardiology recs but anticipate discharge later today.
[2018-07-26] MEDS ORDERED: Furosemide 20 MG TAB PO SCH (06:30)
[2018-07-26] MEDS: Potassium Chloride 10 MEQ TAB PO SCH (08:28)
[2018-07-26] MEDS: Ferrous Sulfate 325 MG TAB PO SCH (08:28)
[2018-07-26] MEDS: Metoprolol Tartrate 25 MG TAB PO SCH (08:29)
[2018-07-26] MEDS: Atorvastatin Calcium 40 MG TAB PO SCH (08:29)
[2018-07-26] MEDS: Aspirin 81 mg Enteric Coated Tablet PO SCH (08:30)
[2018-07-26] MEDS: Lisinopril 20 MG TAB PO SCH (08:30)
[2018-07-26] MEDS: Clopidogrel Bisulfate 75 MG TAB PO SCH (08:31)
[2018-07-26] MEDS: Glimepiride 2 MG TAB PO SCH (08:31)
[2018-07-26 08:34] VITALS: BP 182/82; TEMP 97.8
--- NOTE | 2018-07-26 15:15 | DIS ---
DATE OF ADMISSION: 07/24/2018 DATE OF DISCHARGE: 07/26/2018 RESIDENT: Harrison Shin M.D. ADMITTING ATTENDING: Mark Brown MD. DISCHARGE ATTENDING: Mark Brown MD. CONSULTATIONS: Cardiology and Dr. Felix. PROCEDURES: On 07/24/2018, the patient underwent a chest x-ray that showed cardiomegaly without evidence for an acute cardiopulmonary process. On 07/24/2018, the patient underwent a cardiac catheterization by Dr. Felix. He recommended medical management. PRIMARY DIAGNOSES: 1. Typical angina. 2. Coronary artery disease with previous stent placement. 3. Ischemic cardiomyopathy. 4. Hypertension. 5. Diabetes mellitus. 6. Hyperlipidemia. 7. Obesity. 8. Iron-deficiency anemia. 9. Chronic kidney disease, stage 3. DISCHARGE MEDICATIONS: 1. Lisinopril 40 mg daily. 2. Atorvastatin 80 mg p.o. daily. 3. Furosemide 20 mg p.o. daily. 4. Plavix 75 mg p.o. daily. 5. Aspirin 81 mg p.o. daily. 6. Metformin 1000 mg p.o. b.i.d. 7. Metoprolol tartrate 75 mg p.o. b.i.d. 8. Potassium chloride 10 mEq p.o. daily. 9. Glimepiride 2 mg p.o. q.a.m. with meals. 10. Vitamin D3 5000 units p.o. daily. 11. Imdur 60 p.o. daily. 12. Ferrous sulfate 325 mg p.o. daily. 13. Nitroglycerin 0.4 mg sublingual q.5 minutes p.r.n. 14. Ranexa 1000 mg p.o. b.i.d. DISCONTINUED MEDICATIONS: None. HISTORY OF PRESENT ILLNESS AND HOSPITAL COURSE: This patient is a 58-year-old male with history of hypertension, CAD, and diabetes, who presented with substernal and left-sided chest pain for the last week, that worsened on the day of admission. The patient states the substernal and left-sided feels like pressure and radiates down his left arm with numbness down to his left arm and lasts up 1.5 hours. The patient states the pain was 8/10 and is exertional. The nitro at home did not improve his pain. The patient also describes exertional dyspnea and bilateral leg swelling during this time as well. The patient has seen Dr. Felix as an outpatient with the recent cardiac stress testing in May that was unremarkable. During the hospitalization, the patient was seen by Cardiology, Dr. Felix. Dr. Felix recommended due to his relatively unremarkable stress testing in May 2018 that he undergo a cardiac catheterization for further investigation and evaluation of his coronary arteries. The patient was agreeable to this plan. The patient then underwent cardiac catheterization and was essentially ruled to be a medical management case. The patient was then started on Ranexa by Cardiology. The patient had some notable lab values of troponin Is less than 0.010 x3, a BNP of 242.8, and a creatinine at 1.49, which seems to be his baseline. The patient was counseled extensively on return precautions including chest pain that gets worse with exertion, with headaches, and with unilateral weakness. The patient has had some elevated blood pressures during this time as high as 190s over 90s; however, the patient was asymptomatic. Again, he was cautioned on return to emergency department precautions. However, I think the best option would be to have outpatient followup and titration of his blood pressure medicines. The patient was agreeable to this plan. Otherwise, the patient tolerated the hospitalization well and had no other complications. DISPOSITION: Stable. DISCHARGE INSTRUCTIONS: 1. Location: He will be discharged home under the care of himself. 2. Diet: Heart healthy diet and diabetic diet. 3. Activity: As tolerated with cardiopulmonary limitations. 4. Followup: Followup will be with his primary care provider in [place], [place], as well as Dr. Steve Felix in 3 to 4 weeks for further followup of his cardiac disease. We wish this patient the best luck and hope he has no further complications from this disease process. Job ID: [id number] [facility]
== END 2018-07-26 10:23 | disposition home or self-care (01) ==
LOC: ERS 21:26 → 2SW 23:35
PROVIDERS: ADMIT Student in an Organized Health Care Education/Training Program; ATTEND Student in an Organized Health Care Education/Training Program
PROC: 4A023N7 Measurement of Cardiac Sampling and Pressure, Left Heart, Percutaneous Approach (ICD-10-PCS; principal; 2018-07-25)
PROC: B2111ZZ Fluoroscopy of Multiple Coronary Arteries using Low Osmolar Contrast (ICD-10-PCS; 2018-07-25)
DX: I25.118 Atherosclerotic heart disease of native coronary artery with other forms of angina pectoris (principal); I12.9 Hypertensive chronic kidney disease with stage 1 through stage 4 chronic kidney disease, or unspecified chronic kidney disease; E11.22 Type 2 diabetes mellitus with diabetic chronic kidney disease; N18.3 Chronic kidney disease, stage 3 (moderate); M10.9 Gout, unspecified; E78.2 Mixed hyperlipidemia; D50.9 Iron deficiency anemia, unspecified; I25.5 Ischemic cardiomyopathy; E66.9 Obesity, unspecified; Z68.41 Body mass index [BMI] 40.0-44.9, adult; Z86.73 Personal history of transient ischemic attack (TIA), and cerebral infarction without residual deficits; Z79.02 Long term (current) use of antithrombotics/antiplatelets; Z79.82 Long term (current) use of aspirin; Z79.84 Long term (current) use of oral hypoglycemic drugs; Z79.899 Other long term (current) drug therapy; Z95.5 Presence of coronary angioplasty implant and graft
CPT/HCPCS: 36415; 51798; 71045; 80053; 82550; 83880; 84484; 85025; 93005; 93458; 96372; 96374; 96375; 99152; C1769; G0378; J0131; J0360; J1644; J1650; J2001; J2250; J2270; J2405

== ENCOUNTER 2019-05-25 03:00 | Emergency (ER) | payer MEDICAID, OTHER ==
[2019-05-25] MEDS ORDERED: Metoprolol Tartrate 50 MG TAB ONE (03:57)
[2019-05-25] MEDS ORDERED: Lisinopril 10 MG TAB ONE (03:57)
[2019-05-25] MEDS ORDERED: Amlodipine 5 MG TAB ONE (03:57)
[2019-05-25] MEDS ORDERED: Acetaminophen 500 MG TAB ONE ×2 (04:29→04:31)
[2019-05-25 04:58] LABS: #Basophils 0.1 thou/uL (0.0-0.2); #Eosinphils 0.7 thou/uL (0.0-0.7); #Lymphocytes 2.4 thou/uL (1.20-3.40); #Neutrophils 8.1 thou/uL (1.40-6.50); %Basophils 0.5 % (0.0-1.0); %Eosinophils 5.5 % (0.0-10.0); %Lymphocytes 19.7 % (21.0-51.0); %Monocytes 8.1 % (0.0-10.0); %Neutrophils 66.3 % (42.0-75.0); Hemoglobin 15.5 g/dL (14.0-18.0); Mean Corpuscular HGB CONC 33.4 g/dL (32.0-36.0); Mean Platelet Volume 9.8 fL (7.4-10.4); Platelet Count 256 thou/uL (130-400); RBC Distribution Width 13.4 % (11.5-14.5); Red Blood Cell (RBC) Count 5.53 mill/uL (4.70-6.10); White Blood Cell (WBC) Count 12.3 thou/uL (4.8-10.8)
[2019-05-25 05:06] LABS: ALT (SGPT) 49 U/L (8-55); AST (SGOT) 28 U/L (5-34); Alkaline Phosphatase 89 U/L (40-110); Anion Gap 13 mmol/L (10-20); BUN (Urea Nitrogen) 17 mg/dL (8.4-25.7); Bilirubin, Total 0.4 mg/dL (0.2-1.2); Calc. Creatinine Clearance 0 mL/min (70-130); Calcium 9.5 mg/dL (7.8-10.44); Carbon Dioxide 25 mmol/L (22-29); Chloride 101 mmol/L (98-107); Estimated GFR-MDRD 43; Glucose 330 mg/dL (70-105); Sodium 135 mmol/L (136-145)
--- NOTE | 2019-05-25 08:37 | RAD ---
RADIOGRAPH CHEST 1 VIEW: DATE: 05/25/2019 HISTORY: 59-year-old male with left chest pain FINDINGS: There are no airspace densities, pulmonary edema, pneumothorax, or cardiomegaly. The lateral costophr enic angles are sharp. IMPRESSION: 1. No acute cardiopulmonary findings. 2. Several old left rib fracture deformities.
== END 2019-05-25 06:16 | disposition home or self-care (01) ==
LOC: ERS 03:00
DX: E11.65 Type 2 diabetes mellitus with hyperglycemia (principal); R51 Headache; R07.9 Chest pain, unspecified; G89.29 Other chronic pain; I10 Essential (primary) hypertension; I25.2 Old myocardial infarction; M10.9 Gout, unspecified; E78.5 Hyperlipidemia, unspecified; E78.00 Pure hypercholesterolemia, unspecified; Z95.5 Presence of coronary angioplasty implant and graft; Z86.73 Personal history of transient ischemic attack (TIA), and cerebral infarction without residual deficits; Z79.01 Long term (current) use of anticoagulants; Z79.84 Long term (current) use of oral hypoglycemic drugs; Z79.82 Long term (current) use of aspirin; Z79.899 Other long term (current) drug therapy
CPT/HCPCS: 36416; 71045; 80053; 84484; 85025; 93005

== ENCOUNTER 2020-05-11 21:45 | Inpatient (IN) | payer OTHER ==
[~2020-05-11 21:45] MED LIST: Iopamidol-370 76% 500 ML 1 ML ONE
--- NOTE | 2020-05-11 22:07 | CT ---
Exam: Head CT without contrast HISTORY: Level 1 stroke. Last seen normal at 2120 hours. Right-sided weakness involving the upper and lower extremity. COMPARISON: none FINDINGS: Hemorrhage: No intraparenchymal hemorrhage or extra-axial hematoma. Brain parenchyma: Cortical darnell-white matter differentiation is preserved. No mass effect or midline shift. Basilar cisterns are patent.Hypodensity involving the left coronary radiata likely representing indeterminate white matter infarct. Ventricular system: Ventricles and sulci are patent and symmetric. Calvarium: Intact. Sinuses and mastoid air cells: Adequate aeration. IMPRESSION: 1. No acute intracranial process 2. Indeterminate left dubois radiata lacunar infarct. 3. Results study discussed with Dr. Yap 05/11/2020 10:04 PM Code CR
[2020-05-11 22:19] LABS: #Basophils 0.1 thou/uL (0.0-0.2); #Eosinphils 0.3 thou/uL (0.0-0.7); #Monocytes 0.9 thou/uL (0.11-0.59); #Neutrophils 8.4 thou/uL (1.40-6.50); %Basophils 0.7 % (0.0-1.0); %Eosinophils 2.9 % (0.0-10.0); %Lymphocytes 16.9 % (21.0-51.0); %Monocytes 7.9 % (0.0-10.0); %Neutrophils 71.7 % (42.0-75.0); Hemoglobin 16.2 g/dL (14.0-18.0); Mean Corpuscular HGB CONC 32.9 g/dL (32.0-36.0); Mean Corpuscular Hemoglobin 28.7 pg (27.0-31.0); Mean Corpuscular Volume 87.4 fL (78.0-98.0); Mean Platelet Volume 9.6 fL (7.4-10.4); Platelet Count 219 thou/uL (130-400); RBC Distribution Width 13.1 % (11.5-14.5); Red Blood Cell (RBC) Count 5.63 mill/uL (4.70-6.10); White Blood Cell (WBC) Count 11.7 thou/uL (4.8-10.8)
[2020-05-11 22:27] LABS: PTT 27.6 sec (22.9-36.1); Prothrombin Time 13.7 sec (12.0-14.7)
[2020-05-11 22:42] LABS: ALT (SGPT) 71 U/L (8-55); AST (SGOT) 43 U/L (5-34); Albumin 3.6 g/dL (3.5-5.0); Alkaline Phosphatase 73 U/L (40-110); Anion Gap 15 mmol/L (10-20); BUN (Urea Nitrogen) 17 mg/dL (8.4-25.7); Bilirubin, Total 0.6 mg/dL (0.2-1.2); Calc. Creatinine Clearance 0 mL/min (70-130); Calcium 8.6 mg/dL (7.8-10.44); Carbon Dioxide 23 mmol/L (22-29); Chloride 101 mmol/L (98-107); Estimated GFR-MDRD 46; Globulin 2.7 g/dL (2.4-3.5); Glucose 218 mg/dL (70-105); Potassium 4.1 mmol/L (3.5-5.1); Protein, Total 6.3 g/dL (6.0-8.3); Sodium 135 mmol/L (136-145)
[2020-05-12] MEDS ORDERED: Ondansetron ODT 4 MG TAB SL PRN (00:30)
[2020-05-12] MEDS ORDERED: Sodium Chloride 0.9% 1,000 ML IV SCH (00:30)
[2020-05-12] MEDS ORDERED: Ondansetron PF 4 MG/2 ML Vial IVP PRN (00:30)
[2020-05-12] MEDS ORDERED: Acetaminophen 325 MG TAB PO PRN (00:30)
[2020-05-12] MEDS ORDERED: hydrALAZINE 20 MG/ML VIAL SLOW IVP PRN (01:10)
[2020-05-12] MEDS ORDERED: Bisacodyl 10 MG SUPP PR PRN (01:10)
[2020-05-12] MEDS ORDERED: Communication Order-Pharmacy FS SCH (01:10)
[2020-05-12] MEDS ORDERED: Docusate 100 MG CAP PO PRN (01:10)
[2020-05-12] MEDS ORDERED: niCARdipine 25 MG in Sodium Chloride 0.9% 250 ML 240 ML IVPB PRN (01:10)
[2020-05-12] MEDS ORDERED: Milk Of Magnesia 30 ML UDCUP PO PRN (01:10)
[2020-05-12] MEDS ORDERED: Mag-Al 1200 mg/1200 mg/30 ML UDCUP PO PRN (01:10)
[2020-05-12] MEDS ORDERED: Dextrose 50% Abboject 50 ML SYRINGE SLOW IVP PRN (01:13)
[2020-05-12] MEDS ORDERED: Dextrose 5% in Water 1,000 ML IV PRN (01:13)
--- NOTE | 2020-05-12 01:14 | PDOC.HHP ---
Hospitalist HPI - History of Present Illness R sided weakness History of Present Illness: Patient is a 60 year old male with PMH T2DM, HTN, CAD w/ 3 stents, kidney stones, CVA 2008 who presents to ED for R sided weakness. Patient reports generalized weakness and increased blood sugar since last night, difficulty walking and confusion at home, called ambulance last night and while with EMS he developed sudden onset R sided weakness of arm and leg, muscle strength on that side became 1/5. Given acute stroke symptoms, patient was treated as stroke alert, CT head did not show IC bleeding, CT angio head/neck negative as well. patient given tPA with near-complete resolution of symptoms back to baseline. NIHSS was 7 before tPA. Patient admitted to CCU for post-tPA monitoring. He has a history of 5 CVAs in 2014 and tPA in the past, as well as stroke in 2008. he has DM on PO medications. He has 3 stents, most recent in 2016. Chick Sexer is Dr Felix. Otherwise, denies fever/palpitations/chest pain/shortness of breath or any other symptoms. Hospitalist ROS - Review of Systems Constitutional: reports: weakness. denies: fever, chills, sweats, malaise, other Eyes: denies: pain, vision change, conjunctivae inflammation, eyelid inflammation, redness, other ENT: denies: ear pain, ear discharge, nose pain, nose discharge, nose congestion, mouth pain, mouth swelling, throat pain, throat swelling, other Respiratory: denies: cough, dry, shortness of breath, hemoptysis, SOB with excertion, pleuritic pain, sputum, wheezing, other Cardiovascular: denies: chest pain, palpitations, orthopnea, paroxysmal noc. dyspnea, edema, light headedness, other Gastrointestinal: denies: nausea, vomiting, abdominal pain, diarrhea, constipation, melena, hematochezia, other Genitourinary: denies: dysuria, frequency, incontinence, hematuria, retention, other Musculoskeletal: denies: neck pain, shoulder pain, arm pain, back pain, hand pain, leg pain, foot pain, other Skin: denies: rash, lesions, sophia, bruising, other Neurological: reports: weakness, numbness, other (R sided weakness and numbness per HPI, now much improved) All other systems reviewed; all pertinent +/- noted in HPI/Subj - Medication Medications: Active Medications Generic Name Dose Route Start Last Admin Trade Name Freq PRN Reason Stop Dose Admin Sodium Chloride 1,000 mls @ 90 mls/hr 05/12/20 00:30 05/12/20 00:46 Normal Saline 0.9% IV 05/12/20 11:00 1,000 mls .[id number] YOANNA Administration Plavix MonMay 11, 2020 22:56 ELLIOTT Tran Lee TABLET : Strength - 75 mg : ORAL Patient Dose: 1 tab(s) Oral once a day. Lasix oral MonMay 11, 2020 22:56 ELLIOTT Tran Lee TABLET : Strength - 20 mg : ORAL Patient Dose: 1 tab(s) Oral once a day. atorvastatin MonMay 11, 2020:56 ELLIOTT Tran Lee TABLET : Strength - 80 mg : ORAL Patient Dose: 1 tab(s) Oral once a day. metFORMIN MonMay 11, 2020 22:56 ELLIOTT Tran Lee TABLET : Strength - 1,000 mg : ORAL Patient Dose: 1 tab(s) Oral 2 times a day. Aspir-81 MonMay 11, 2020 22:56 ELLIOTT Tran Lee TABLET, DELAYED RELEASE (ENTERIC COATED) : Strength - 81 mg : ORAL Patient Dose: 1 tab(s) Oral once a day. lisinopril MonMay 11, 2020 22:56 ELLIOTT Tran Lee TABLET : Strength - 40 mg : ORAL Patient Dose: 40 mg Oral once a day. Ranexa MonMay 11, 2020 22:56 ELLIOTT Tran Lee TABLET, EXTENDED RELEASE 12 HR : Strength - 1,000 mg : ORAL Patient Dose: 1000 mg Oral 2 times a day (before meals). nitroglycerin sublingual MonMay 11, 2020 22:56 ELLIOTT Tran Lee TABLET, SUBLINGUAL : Strength - 0.4 mg : SUBLINGUAL Patient Dose: As Needed. meTOPROLOL succinate MonMay 11, 2020:56 ELLIOTT Tran Lee TABLET, EXTENDED RELEASE 24 HR : Strength - 50 mg : ORAL Patient Dose: 25 mg Oral 2 times a day. potassium chloride oral MonMay 11, 2020 22:56 ELLIOTT Tran Lee TABLET, EXT RELEASE, PARTICLES/CRYSTALS : Strength - 10 mEq : ORAL Patient Dose: 10 mEq Oral. Vascepa MonMay 11, 2020 22:56 ELLIOTT Tran Lee CAPSULE : Strength - 1 gram : ORAL Patient Dose: 2 times a day. isosorbide mononitrate MonMay 11, 2020 22:56 ELLIOTT Tran Lee TABLET, EXTENDED RELEASE 24 HR : Strength - 120 mg : ORAL Patient Dose: 60 mg Oral once a day. Iron (ferrous sulfate) MonMay 11, 2020 22:56 ELLIOTT Tran Lee tablet : Strength - 325 mg (65 mg iron) : ORAL Patient Dose: Unknown. tamsulosin MonMay 11, 2020 22:57 ELLIOTT Tran Lee capsule : Strength - 0.4 mg : ORAL Patient Dose: 1 tab(s) Oral once a day (in the morning). glipiZIDE MonMay 11, 2020 22:57 ELLIOTT Tran Lee tablet : Strength - 10 mg : ORAL Patient Dose: 1 tab(s) Oral 2 times a day (before meals). Hospitalist History - Past Medical History Other Medical History: Tetanus immunization up to date, Notes: ISCHEMIC STROKE - KIDNEY STONES -[place] - CVA - GOUT, diabetes, Type II, Age of onset: 2010, hyperlipidemia, high cholesterol, currently being treated, hypertension. - Past Surgical History Other Surgical History: CARDIAC STENTS, KIDNEY STONES REMOVED IN KIDNEYS , Surgical history of appendectomy, Stents in heart X 3. - Family History Family History: reports: no pertinent history - Social History Smoking Status: Never smoker Alcohol: reports: None Drugs: reports: none - Exam General Appearance: NAD, awake alert Eye: PERRL, anicteric sclera ENT: normocephalic atraumatic, no oropharyngeal lesions, moist mucosa Neck: supple, symmetric, no JVD, no thyromegaly, no lymphadenopathy, no carotid bruit Heart: RRR, no murmur, no gallops, no rubs, normal peripheral pulses Respiratory: CTAB, no wheezes, no rales, no ronchi, normal chest expansion, no tachypnea, normal percussion Gastrointestinal: soft, non-tender, non-distended, normal bowel sounds, no palpable masses, no hepatomegaly, no splenomegaly, no bruit Extremities: no cyanosis, no clubbing, no edema Skin: normal turgor, no lesions, no rashes Neurological: cranial nerve grossly intact, normal sensation to touch Neurological - other findings: R sided arm and leg muscle groups 4/5 strength Musculoskeletal: normal tone, normal strength, no muscle wasting Psychiatric: normal affect, normal behavior, A&O x 3 Hospitalist Results - Labs Result Diagrams: 05/11/20 22:08 05/12/20 03:42 Lab results: WBC 11.7 thou/uL (4.8-10.8) H 05/11/20 22:08 Hgb 16.2 g/dL (14.0-18.0) 05/11/20 22:08 Hct 49.2 % (42.0-52.0) 05/11/20 22:08 MCV 87.4 fL (78.0-98.0) 05/11/20 22:08 Plt Count 219 thou/uL (130-400) 05/11/20 22:08 Neutrophils % 71.7 % (42.0-75.0) 05/11/20 22:08 Sodium 135 mmol/L (136-145) L 05/11/20 22:08 Potassium 4.1 mmol/L (3.5-5.1) 05/11/20 22:08 Chloride 101 mmol/L (98-107) 05/11/20 22:08 Carbon Dioxide 23 mmol/L (22-29) 05/11/20 22:08 BUN 17 mg/dL (8.4-25.7) 05/11/20 22:08 Creatinine 1.57 mg/dL (0.7-1.3) H 05/11/20 22:08 Glucose 218 mg/dL (70-105) H 05/11/20 22:08 Calcium 8.6 mg/dL (7.8-10.44) 05/11/20 22:08 Total Bilirubin 0.6 mg/dL (0.2-1.2) 05/11/20 22:08 AST 43 U/L (5-34) H 05/11/20 22:08 ALT 71 U/L (8-55) H 05/11/20 22:08 Alkaline Phosphatase 73 U/L (40-110) 05/11/20 22:08 Troponin I Less than 0.010 ng/mL (< 0.028) 05/11/20 22:08 Serum Total Protein 6.3 g/dL (6.0-8.3) 05/11/20 22:08 Albumin 3.6 g/dL (3.5-5.0) 10/05/20 22:08 Additional comment: VITAL SIGNS Mon May 11, 2020 23:33 ELLIOTT Tran, Freddie BP: 178/96 Pulse: 78 Resp: 16 Temp: 98.1 (Oral) Pain: 0 O2 sat: 97 on (Room Air) Time: 05/11/2020 23:33. CTA Angio Head W WO Con Observe DT: MonMay 11, 2020 CTABR EXAM: CT ANGIOGRAM OF THE HEAD AND NECK INDICATION: Right-sided weakness involving the upper and lower extremity. Level 1 stroke. Last seen n ormal at 2120 hours COMPARISON: None TECHNIQUE: CT angiogram of the head and neck are performed in the axial plane. Three-dimensional refo rmatted images are submitted for interpretation. FINDINGS: CTA OF THE HEAD WITH AND WITHOUT CONTRAST: POSTCONTRAST CT OF BRAIN: Pathologic enhancement: No pathologic enhancement the brain. Postcontrast soft tissue neck CT: Aerodigestive tract:Aerodigestive tract is patent. No mucosal abnormality. Sinuses: Minimal mucosal disease of the left maxillary sinus. Orbits: Bilateral ocular lenses are appropriately located. Both globes are intact. Retrobulbar fat is preserved. Symmetric attenuation the optic nerves and ocular rectus muscles. Salivary glands:Symmetric attenuation of the parotid and submandibular glands. Thyroid gland: Slightly heterogeneous. Lymph nodes: No evidence of lymphadenopathy by size criteria. Paraspinal muscles: Symmetric attenuation of the sternocleidomastoid muscles. Appropriate attenuation of the paraspinal muscles. Cervical spine:Varying degrees of central canal stenosis and neural foramina the basis of degenerativ e change. Technique limits evaluation. Vertebral body height is maintained. No acute fracture. Upper mediastinum and lung apices: No acute abnormality. Heart size is upper normal. There are dubois ry calcifications. CTA OF THE NECK WITH CONTRAST: Aorta: Appropriate enhancement and luminal diameter. Minimal atherosclerosis. Right carotid artery: Appropriate enhancement and luminal diameter of the origin the right carotid ar bryan, innominate artery, common carotid artery, carotid bifurcation and internal carotid artery. There is mild stenosis involving the right carotid bifurcation and proximal internal carotid artery. No significant stenosis based upon NASCET criteria. Left carotid: Appropriate enhancement and luminal diameter of the origin of the left carotid artery, common carotid artery, carotid bifurcation and internal carotid artery. There is noncalcified plaque involving the mid to distal common carotid artery with resultant mild stenosis based upon NASC ET criteria. Subclavian arteries:Symmetric and patent. Vertebral arteries:Patent throughout their course in the neck. Dominant left vertebral artery. CTA OF THE BRAIN: Intracranial internal carotid arteries:Appropriate enhancement and luminal diameter. Mild atheroscler osis involving both cavernous segments. Anterior circulation: Symmetric enhancement and luminal diameter the A1 segment, M1 segment, proximal A2 segment and proximal MCA branches. Intracranial vertebral arteries: Patent. Right PICA artery origin has a normal appearance. Limited ev aluation the left PICA artery origin. Posterior circulation: Both vertebral arteries supply normal caliber basilar artery. There is short s egment mild narrowing of the proximal right M1 segment. IMPRESSION: 1. No hemodynamically significant stenosis, occlusion or aneurysmal formation. 2. Results study discussed with Dr. Yap 05/11/2020 at 10:14 PM Code CR . RADIOLOGY CT Brain WO Con Observe DT: MonMay 11, 2020 BR Exam: Head CT without contrast HISTORY: Level 1 stroke. Last seen normal at 2120 hours. Right-sided weakness involving the upper and lower extremity. COMPARISON: none FINDINGS: Hemorrhage: No intraparenchymal hemorrhage or extra-axial hematoma. Brain parenchyma: Cortical darnell-white matter differentiation is preserved. No mass effect or midline shift. Basilar cisterns are patent.Hypodensity involving the left coronary radiata likely representing indeterminate white matter infarct. Ventricular system: Ventricles and sulci are patent and symmetric. Calvarium: Intact. Sinuses and mastoid air cells: Adequate aeration. IMPRESSION: 1. No acute intracranial process 2. Indeterminate left dubois radiata lacunar infarct. 3. Results study discussed with Dr. Yap 05/11/2020 10:04 PM Code CR - EKG Interpretation EKG: NSR rate 77 bpm, QTc 473, SC 170, nonspecific T wave changes, no STEMI/AVB Hospitalist H&P A/P - Plan Plan: Patient is a 60 year old male with PMH T2DM, HTN, CAD w/ 3 stents, kidney stones, CVA 2008 who presents to ED for R sided weakness. # acute ischemic stroke s/p tPA # HTN # history of CAD w/ 3 stents Patient reports generalized weakness and increased blood sugar since last night, difficulty walking and confusion at home, called ambulance last night and while with EMS he developed sudden onset R sided weakness of arm and leg, muscle strength on that side became 1/5. Given acute stroke symptoms, patient was treated as stroke alert, CT head did not show IC bleeding, CT angio head/neck negative as well. patient given tPA with near-complete resolution of symptoms back to baseline. NIHSS was 7 before tPA. Patient admitted to CCU for post-tPA monitoring. He has a history of 5 CVAs in 2014 and tPA in the past, as well as stroke in 2008. he has DM on PO medications. He has 3 stents, most recent in 2016. Chick Sexer is Dr Felix. Otherwise, denies fever/palpitations/chest pain/shortness of breath or any other symptoms. - admit to CCU - post-tPa order set including MRI brain, echo, stroke team, neurology consult - consult pulmonary - monitor on telemetry, denies history of atrial fibrillation - no needle sticks x 24 hours - resume home BP, antiplatelet meds after 24 hours # DM - insulin SSI in 24 hours, resume PO meds DVT/GI ppx as appropriate given tPA full code
[2020-05-12 04:48] LABS: ALT (SGPT) 61 U/L (8-55); AST (SGOT) 36 U/L (5-34); Albumin 3.4 g/dL (3.5-5.0); Alkaline Phosphatase 70 U/L (40-110); Anion Gap 14 mmol/L (10-20); BUN (Urea Nitrogen) 18 mg/dL (8.4-25.7); Bilirubin, Total 0.4 mg/dL (0.2-1.2); Calc. Creatinine Clearance 78 mL/min (70-130); Calcium 8.3 mg/dL (7.8-10.44); Carbon Dioxide 23 mmol/L (22-29); Cardiac Risk 4.6 (Less than 4.5); Chloride 104 mmol/L (98-107); Cholesterol 123 mg/dl (< 200 Desired); Estimated GFR-MDRD 45; Globulin 2.6 g/dL (2.4-3.5); Glucose 209 mg/dL (70-105); HDL Cholesterol 27 mg/dL (>60 Neg Risk); LDL Cholesterol, Calculated 54 mg/dL; Potassium 3.9 mmol/L (3.5-5.1); Sodium 137 mmol/L (136-145); Triglycerides 211 mg/dL (Less than 150)
[2020-05-12] MEDS: HumaLOG 300 UNITS/3 ML VIAL SC PRN ×4 (06:12→20:23)
--- NOTE | 2020-05-12 08:35 | CT ---
PRELIMINARY REPORT/[facility]/EMERGENCY AFTER HOURS PROCEDURE: EXAM: CT Head Without Intravenous Contrast. CLINICAL HISTORY: S/p t-PA TECHNIQUE: Axial computed tomography images of the head/brain without intravenous contrast. COMPARISON: May 11, 2020 FINDINGS: BRAIN: No acute intraparenchymal hemorrhage. No mass lesion. No CT evidence for acute territorial infarct. N o midline shift or extra-axial collection. VENTRICLES: No hydrocephalus. ORBITS: The orbits are unremarkable. SINUSES AND MASTOIDS: The paranasal sinuses and mastoid air cells are clear. SOFT TISSUES: No significant facial or scalp soft tissue swelling evident. No radiopaque foreign body is seen. BONES: No acute skull fracture. IMPRESSION: No acute intracranial abnormality. Stable status post TPA. ELECTRONICALLY SIGNED BY: Nitish Islas MD May 12, 2020 5:05:12 AM CDT This report is intended for review by the ordering physician only, in accordance of law. If you recei ve this report in error, please call [facility] at [phone]. FINAL REPORT CT BRAIN WITHOUT CONTRAST: I agree with the preliminary report given by Dr. Nitish Islas of [facility]. POS: OFF
[2020-05-12] MEDS ORDERED: FLU VACC QS2020-21(6MOS UP)/PF 60 MCG/0.5 ML SYRINGE IM ONE (09:00)
[2020-05-12] MEDS ORDERED: ALPRAZolam 0.25 MG TAB PO PRN (10:28)
[2020-05-12] MEDS: Labetalol HCl 100 MG/20 ML VIAL SLOW IVP PRN ×3 (12:37→17:11)
--- NOTE | 2020-05-12 12:55 | CT ---
EXAM: CT ANGIOGRAM OF THE HEAD AND NECK INDICATION: Right-sided weakness involving the upper and lower extremity. Level 1 stroke. Last seen n ormal at 2120 hours COMPARISON: None TECHNIQUE: CT angiogram of the head and neck are performed in the axial plane. Three-dimensional refo rmatted images are submitted for interpretation. FINDINGS: CTA OF THE HEAD WITH AND WITHOUT CONTRAST: POSTCONTRAST CT OF BRAIN: Pathologic enhancement: No pathologic enhancement the brain. Postcontrast soft tissue neck CT: Aerodigestive tract:Aerodigestive tract is patent. No mucosal abnormality. Sinuses: Minimal mucosal disease of the left maxillary sinus. Orbits: Bilateral ocular lenses are appropriately located. Both globes are intact. Retrobulbar fat is preserved. Symmetric attenuation the optic nerves and ocular rectus muscles. Salivary glands:Symmetric attenuation of the parotid and submandibular glands. Thyroid gland: Slightly heterogeneous. Lymph nodes: No evidence of lymphadenopathy by size criteria. Paraspinal muscles: Symmetric attenuation of the sternocleidomastoid muscles. Appropriate attenuation of the paraspinal muscles. Cervical spine:Varying degrees of central canal stenosis and neural foramina the basis of degenerativ e change. Technique limits evaluation. Vertebral body height is maintained. No acute fracture. Upper mediastinum and lung apices: No acute abnormality. Heart size is upper normal. There are dubois ry calcifications. CTA OF THE NECK WITH CONTRAST: Aorta: Appropriate enhancement and luminal diameter. Minimal atherosclerosis. Right carotid artery: Appropriate enhancement and luminal diameter of the origin the right carotid ar bryan, innominate artery, common carotid artery, carotid bifurcation and internal carotid artery. There is mild stenosis involving the right carotid bifurcation and proximal internal carotid artery. No significant stenosis based upon NASCET criteria. Left carotid: Appropriate enhancement and luminal diameter of the origin of the left carotid artery, common carotid artery, carotid bifurcation and internal carotid artery. There is noncalcified plaque involving the mid to distal common carotid artery with resultant mild stenosis based upon NASC ET criteria. Subclavian arteries:Symmetric and patent. Vertebral arteries:Patent throughout their course in the neck. Dominant left vertebral artery. CTA OF THE BRAIN: Intracranial internal carotid arteries:Appropriate enhancement and luminal diameter. Mild atheroscler osis involving both cavernous segments. Anterior circulation: Symmetric enhancement and luminal diameter the A1 segment, M1 segment, proximal A2 segment and proximal MCA branches. Intracranial vertebral arteries: Patent. Right PICA artery origin has a normal appearance. Limited ev aluation the left PICA artery origin. Posterior circulation: Both vertebral arteries supply normal caliber basilar artery. There is short s egment mild narrowing of the proximal right M1 segment. IMPRESSION: 1. No hemodynamically significant stenosis, occlusion or aneurysmal formation. 2. Results study discussed with Dr. Yap 05/11/2020 at 10:14 PM Code CR Transcribed Date/Time: 05/12/2020 12:55 PM
--- NOTE | 2020-05-12 13:05 | CON ---
NEUROLOGY CONSULTATION DATE OF CONSULTATION: 05/12/2020 REASON FOR CONSULTATION: Stroke, status post tPA. HISTORY OF PRESENT ILLNESS: Mr. Korey Cartagena is a 60-year-old male with history significant for hypertension, coronary artery disease with 3 stents, history of renal stones, hypertension, CVA in 2008, presented to the emergency room with acute onset right-sided weakness with confusion. Per patient, he had generalized weakness and increased blood sugar since last night and had difficulty walking and confusion, so he called the ambulance. When the EMS saw him, he developed acute onset right sided weakness, so stroke alert was activated and the head CT was done, which did not reveal any acute intracranial bleed and CT angiogram of the head and neck was also negative for hemodynamically significant stenosis or thrombus. He was given tPA with near complete resolution of the symptoms and the NIH scale before was 7 before tPA. He was admitted to CCU for post tPA monitoring and stabilization. The patient has history of 5 TIAs in the past in 2014 and has received tPA in the past and also history of stroke in 2008. The patient denies nausea, vomiting, headache, chest pain, abdominal pain, problems with speech or swallowing. REVIEW OF SYSTEMS: Constitutional: reports: weakness. denies: fever, chills, sweats, malaise, other Eyes: denies: pain, vision change, conjunctivae inflammation, eyelid inflammation, redness, other ENT: denies: ear pain, ear discharge, nose pain, nose discharge, nose congestion, mouth pain, mouth swelling, throat pain, throat swelling, other Respiratory: denies: cough, dry, shortness of breath, hemoptysis, SOB with excertion, pleuritic pain, sputum, wheezing, other Cardiovascular: denies: chest pain, palpitations, orthopnea, paroxysmal noc. dyspnea, edema, light headedness, other Gastrointestinal: denies: nausea, vomiting, abdominal pain, diarrhea, constipation, melena, hematochezia, other Genitourinary: denies: dysuria, frequency, incontinence, hematuria, retention, other Musculoskeletal: denies: neck pain, shoulder pain, arm pain, back pain, hand pain, leg pain, foot pain, other Skin: denies: rash, lesions, sophia, bruising, other Neurological: reports: weakness, numbness, other (R sided weakness now improved) All other systems reviewed; all pertinent +/- noted in HPI/Subj HOME MEDICATIONS: 1. Plavix 75 mg daily. 2. Lasix 20 mg daily. 3. Atorvastatin 80 mg daily. 4. Metformin 1000 mg twice daily. 5. Aspirin 81 mg daily. 6. Lisinopril 40 mg daily. 7. Ranexa 1000 mg twice daily. 8. Nitroglycerin sublingual 0.4 mg as needed. 9. Toprol extended release 24 hours 50 mg strength, 25 mg twice a day. 10. Potassium chloride. 11. Vascepa 1 g two times a day. 12. Isosorbide mononitrate 120 mg extended release every 24 hours. 13. Tamsulosin 0.4 mg oral once a day. 14. Glipizide 10 mg twice daily. PAST MEDICAL HISTORY: Prior stroke, renal stones, [place], diabetes mellitus, hyperlipidemia, hypercholesterolemia, hypertension. PAST SURGICAL HISTORY: Cardiac stents, kidney stones removal surgical, history of appendectomy, cardiac stents x3. FAMILY HISTORY: No pertinent family history. SOCIAL HISTORY: , lives with his . Denies smoking, alcohol, illegal drug use. PHYSICAL EXAMINATION: BP: 178/96 Pulse: 78 Resp: 16 Temp: 98.1 (Oral) Pain: 0 O2 sat: 97 on (Room Air) General Appearance: NAD, awake alert Eye: PERRL, anicteric sclera ENT: normocephalic atraumatic, no oropharyngeal lesions, moist mucosa Neck: supple, symmetric, no JVD, no thyromegaly, no lymphadenopathy, no carotid bruit Heart: RRR, no murmur, no gallops, no rubs, normal peripheral pulses Respiratory: CTAB, no wheezes, no rales, no ronchi, normal chest expansion, no tachypnea, normal percussion Gastrointestinal: soft, non-tender, non-distended, normal bowel sounds, no palpable masses, no hepatomegaly, no splenomegaly, no bruit Extremities: no cyanosis, no clubbing, no edema Skin: normal turgor, no lesions, no rashes Neurological: Mental status; the patient is alert and oriented to person, place, and time. Recent and remote memory intact. Speech is clear. Motor; muscle tone and bulk are normal. Moving all 4 extremities equally and symmetrically. Sensory intact. Cerebellar, finger-nose testing intact. Gait deferred due to patient's safety reason. DATA REVIEWED: I reviewed which was significant for blood glucose of 209. This was essentially unremarkable. CT angiogram of the head and neck did not reveal hemodynamically significant stenosis. Head CT was also negative for bleed. WBC 11.7 thou/uL (4.8-10.8) H 05/11/20 22:08 Hgb 16.2 g/dL (14.0-18.0) 05/11/20 22:08 Hct 49.2 % (42.0-52.0) 05/11/20 22:08 MCV 87.4 fL (78.0-98.0) 05/11/20 22:08 Plt Count 219 thou/uL (130-400) 05/11/20 22:08 Neutrophils % 71.7 % (42.0-75.0) 05/11/20 22:08 Sodium 135 mmol/L (136-145) L 05/11/20 22:08 Potassium 4.1 mmol/L (3.5-5.1) 05/11/20 22:08 Chloride 101 mmol/L (98-107) 05/11/20 22:08 Carbon Dioxide 23 mmol/L (22-29) 05/11/20 22:08 BUN 17 mg/dL (8.4-25.7) 05/11/20 22:08 Creatinine 1.57 mg/dL (0.7-1.3) H 05/11/20 22:08 Glucose 218 mg/dL (70-105) H 05/11/20 22:08 Calcium 8.6 mg/dL (7.8-10.44) 05/11/20 22:08 Total Bilirubin 0.6 mg/dL (0.2-1.2) 05/11/20 22:08 AST 43 U/L (5-34) H 05/11/20 22:08 ALT 71 U/L (8-55) H 05/11/20 22:08 Alkaline Phosphatase 73 U/L (40-110) 05/11/20 22:08 Troponin I Less than 0.010 ng/mL (< 0.028) 05/11/20 22:08 Serum Total Protein 6.3 g/dL (6.0-8.3) 05/11/20 22:08 Albumin 3.6 g/dL (3.5-5.0) 05/11/20 22:08 Additional comment: VITAL SIGNS MonMay 11, 2020 23:33 ELLIOTT Tran, Freddie BP: 178/96 Pulse: 78 Resp: 16 Temp: 98.1 (Oral) Pain: 0 O2 sat: 97 on (Room Air) Time: 05/11/2020 23:33. CTA Angio Head W WO Con Observe DT: MonMay 11, 2020 CTABR EXAM: CT ANGIOGRAM OF THE HEAD AND NECK INDICATION: Right-sided weakness involving the upper and lower extremity. Level 1 stroke. Last seen n ormal at 2120 hours COMPARISON: None TECHNIQUE: CT angiogram of the head and neck are performed in the axial plane. Three-dimensional refo rmatted images are submitted for interpretation. FINDINGS: CTA OF THE HEAD WITH AND WITHOUT CONTRAST: POSTCONTRAST CT OF BRAIN: Pathologic enhancement: No pathologic enhancement the brain. Postcontrast soft tissue neck CT: Aerodigestive tract:Aerodigestive tract is patent. No mucosal abnormality. Sinuses: Minimal mucosal disease of the left maxillary sinus. Orbits: Bilateral ocular lenses are appropriately located. Both globes are intact. Retrobulbar fat is preserved. Symmetric attenuation the optic nerves and ocular rectus muscles. Salivary glands:Symmetric attenuation of the parotid and submandibular glands. Thyroid gland: Slightly heterogeneous. Lymph nodes: No evidence of lymphadenopathy by size criteria. Paraspinal muscles: Symmetric attenuation of the sternocleidomastoid muscles. Appropriate attenuation of the paraspinal muscles. Cervical spine:Varying degrees of central canal stenosis and neural foramina the basis of degenerativ e change. Technique limits evaluation. Vertebral body height is maintained. No acute fracture. Upper mediastinum and lung apices: No acute abnormality. Heart size is upper normal. There are dubois ry calcifications. CTA OF THE NECK WITH CONTRAST: Aorta: Appropriate enhancement and luminal diameter. Minimal atherosclerosis. Right carotid artery: Appropriate enhancement and luminal diameter of the origin the right carotid ar bryan, innominate artery, common carotid artery, carotid bifurcation and internal carotid artery. There is mild stenosis involving the right carotid bifurcation and proximal internal carotid artery. No significant stenosis based upon NASCET criteria. Left carotid: Appropriate enhancement and luminal diameter of the origin of the left carotid artery, common carotid artery, carotid bifurcation and internal carotid artery. There is noncalcified plaque involving the mid to distal common carotid artery with resultant mild stenosis based upon NASC ET criteria. Subclavian arteries:Symmetric and patent. Vertebral arteries:Patent throughout their course in the neck. Dominant left vertebral artery. CTA OF THE BRAIN: Intracranial internal carotid arteries:Appropriate enhancement and luminal diameter. Mild atheroscler osis involving both cavernous segments. Anterior circulation: Symmetric enhancement and luminal diameter the A1 segment, M1 segment, proximal A2 segment and proximal MCA branches. Intracranial vertebral arteries: Patent. Right PICA artery origin has a normal appearance. Limited ev aluation the left PICA artery origin. Posterior circulation: Both vertebral arteries supply normal caliber basilar artery. There is short s egment mild narrowing of the proximal right M1 segment. IMPRESSION: 1. No hemodynamically significant stenosis, occlusion or aneurysmal formation. 2. Results study discussed with Dr. Yap 05/11/2020 at 10:14 PM Code CR . RADIOLOGY CT Brain WO Con Observe DT: MonMay 11, 2020 BR Exam: Head CT without contrast HISTORY: Level 1 stroke. Last seen normal at 2120 hours. Right-sided weakness involving the upper and lower extremity. COMPARISON: none FINDINGS: Hemorrhage: No intraparenchymal hemorrhage or extra-axial hematoma. Brain parenchyma: Cortical darnell-white matter differentiation is preserved. No mass effect or midline shift. Basilar cisterns are patent.Hypodensity involving the left coronary radiata likely representing indeterminate white matter infarct. Ventricular system: Ventricles and sulci are patent and symmetric. Calvarium: Intact. Sinuses and mastoid air cells: Adequate aeration. IMPRESSION: 1. No acute intracranial process 2. Indeterminate left dubois radiata lacunar infarct. 3. Results study discussed with Dr. Yap 05/11/2020 10:04 PM Code CR - EKG Interpretation EKG: NSR rate 77 bpm, ASSESSMENT AND PLAN: Mr. Korey Cartagena is a 60-year-old male with history significant for hypertension, diabetes mellitus, coronary artery disease with 3 stents, CVA in 2008, presented with acute onset right-sided weakness. He is status post tPA and weakness is now resolved. Monitor blood pressure and blood glucose. Neuro checks every [address] 24 hours post tPA. If head CT is negative, then start aspirin for secondary stroke prevention. Check hemoglobin A1c, fasting lipid panel, and TSH. Telemetry, 2D echo to evaluate for left ventricular ejection fraction. Continue home medications. Permissive control of blood pressure at this time. Strict control of blood glucose. No antiplatelets or anticoagulants for the next 24 hours post tPA. Continue medical management per primary team. EEG to evaluate for acute onset confusion associated with focal neurological symptoms, it is negative for seizure activity. MRI of the brain toevaluate for acute intracranial process. Further recommendations will depend on the results of the testing. PT/OT/Speech. We will continue to follow. Thank you for the consult. Job ID: [id number] [facility]la
--- NOTE | 2020-05-12 15:38 | CON ---
DATE OF CONSULTATION: 05/12/2020 REASON FOR CONSULTATION: The patient is in the ICU with a stroke. HISTORY OF PRESENT ILLNESS: Mr. Cartagena is a pleasant 60-year-old male, who presented to the hospital with acute onset of right arm and right leg weakness. Stroke alert was called. Head CT did not really show any significant findings, but he was given tPA and had resolution of his symptoms. The patient tells me he has had several strokes before related to cholesterol emboli from a heart catheterization. He was taking aspirin at home prior to admission. PAST MEDICAL HISTORY: 1. Stroke. 2. Coronary artery disease. 3. Myocardial infarction. 4. Nephrolithiasis. 5. Gout. 6. Type 2 diabetes mellitus. 7. Hyperlipidemia. 8. Hypertension. PAST SURGICAL HISTORY: 1. Coronary stent placement. 2. Kidney stone removal. 3. Appendectomy. FAMILY MEDICAL HISTORY: Unremarkable. SOCIAL HISTORY: Never smoker. Does not consume alcohol. He does video security. MEDICATIONS: Prior to admission, these are listed under the home medication section and the summary section on [employer]. These were reviewed. Of note, he was taking aspirin 81 mg daily. No other blood thinners at the time of admission. REVIEW OF SYSTEMS: No fever, chills, nausea, vomiting, hematemesis, melena, hematochezia, hematuria, or dysuria. Remainder 12-point review of systems negative. PHYSICAL EXAMINATION: VITAL SIGNS: Heart rate 65, blood pressure 185/75, O2 sat 95%, respiratory rate 13. GENERAL: He is awake, alert, in no distress. HEENT: Pupils reactive. Sclerae anicteric. Oropharynx clear. He has no facial droop. No cranial nerve deficit. NECK: No adenopathy or JVD. LUNGS: Clear to auscultation. CARDIAC: S1 and S2. Regular without audible murmur. ABDOMEN: Soft and nontender to palpation. EXTREMITIES: No clubbing, cyanosis, or edema. NEUROLOGIC: The patient is able to move both arms and legs. He has 5/5 strength bilaterally. He may have some mild weakness on plantar flexion of his foot. LABORATORY DATA: White blood cell count 11.7, hematocrit 49.2, and platelet count 219. INR 1.0, PTT 27.6. Sodium 137, potassium 3.9, chloride 104, CO2 of 23, BUN 18, creatinine 1.6, glucose 209. ASSESSMENT: 1. Stroke with right-sided weakness and resolution after tPA administration. 2. Multiple cardiovascular risk factors as listed above. PLAN: The patient is currently on nicardipine for blood pressure control. He has been started on Plavix in addition to his usual medication regimen. He will remain in ICU for 24 hours. There is nothing to add from my standpoint at this time other than GI prophylaxis. Job ID: [id number]
[2020-05-12] MEDS: Famotidine 20 MG TAB PO SCH (20:18)
[2020-05-12] MEDS: Atorvastatin Calcium 40 MG TAB PO SCH (20:18)
[2020-05-13] MEDS: Acetaminophen 325 MG TAB PO PRN (04:24)
[2020-05-13] MEDS: HumaLOG 300 UNITS/3 ML VIAL SC PRN ×4 (06:14→21:34)
[2020-05-13] MEDS: Enoxaparin Sodium 40 MG/0.4 ML SYRINGE SC SCH (08:24)
[2020-05-13] MEDS: Labetalol HCl 100 MG/20 ML VIAL SLOW IVP PRN ×3 (08:25→11:13)
[2020-05-13] MEDS: Clopidogrel Bisulfate 75 MG TAB PO SCH (08:25)
[2020-05-13] MEDS: Famotidine 20 MG TAB PO SCH ×2 (08:25→20:18)
--- NOTE | 2020-05-13 08:29 | EEG ---
DATE OF SERVICE: 05/12/2020 ATTENDING PHYSICIAN: Kia Rodriguez MD This EEG was performed using 24-channel [employer] video digital EEG machine with 24 disk electrodes. This was an extended 2 hours 4 minutes of inpatient video EEG recording. Digital analysis of the EEG was done for spike and seizure detection, which revealed no abnormalities. BACKGROUND: There is a nonsustained posterior background rhythm of 8 to 8.5 Hz. Minimal reactivity is seen with eye opening and closure. HYPERVENTILATION: Not performed. PHOTIC STIMULATION: Bioccipital symmetric driving response is observed. SLEEP: Drowsiness is observed. EEG DIAGNOSIS: Occasional irregular theta activity seen during the recording. CLINICAL INTERPRETATION: This EEG is consistent with mild generalized nonspecific cerebral dysfunction. Job ID: [id number]
[2020-05-13] MEDS ORDERED: Aspirin 325 mg Enteric Coated Tablet PO SCH (09:00)
[2020-05-13] MEDS ORDERED: cloNIDine 0.1 MG TAB PO PRN (10:10)
[2020-05-13] MEDS ORDERED: Lorazepam 2 MG/ML VIAL SLOW IVP PRN (10:10)
[2020-05-13] MEDS ORDERED: Labetalol HCl 100 MG/20 ML VIAL SLOW IVP SCH (10:15)
[2020-05-13] MEDS ORDERED: cloNIDine 0.3 MG TAB PO SCH (13:00)
--- NOTE | 2020-05-13 15:41 | PDOC.NEUPN ---
- Subjective Encounter Date: 05/13/20 Subjective: Patient continues to be hypertensive and somewhat agitated. He is unable to tolerate MRI brain - Objective Vital Signs & Weight: Vital Signs (12 hours) Temp Pulse Resp BP BP Pulse Ox 05/13/20 15:09 74 16 160/84 H 05/13/20 13:00 60 18 165/93 H 05/13/20 11:49 98.6 F 71 16 194/100 H 96 05/13/20 11:13 70 190/103 H 05/13/20 11:12 190/103 H 05/13/20 10:21 72 193/97 H 05/13/20 09:49 75 222/97 H 05/13/20 08:25 75 05/13/20 08:00 95 05/13/20 07:53 98 F 75 16 208/91 H 95 05/13/20 04:00 98.0 F 72 14 177/87 H 97 Weight Weight 253 lb Most Recent Monitor Data Heart Rate from ECG 70 NIBP 170/76 NIBP BP-Mean 107 Respiration from ECG 18 SpO2 97 I&O: 05/12/20 05/13/20 05/14/20 06:59 06:59 06:59 Intake Total 645 2435 720 Output Total 250 2300 Balance 395 135 720 Result Diagrams: 05/11/20 22:08 05/12/20 03:42 Additional Labs: Accuchecks 05/13/20 05/13/20 05/12/20 11:00 05:42 20:26 POC Glucose 231 H 160 H 248 H 05/12/20 16:53 POC Glucose 262 H Radiology Reviewed by me: Yes EKG Reviewed by me: Yes ROS - Review of Systems Constitutional: denies: fever, chills, sweats, weakness, malaise, other Eyes: denies: pain, vision change, conjunctivae inflammation, eyelid inflammation, redness, other ENT: denies: ear pain, ear discharge, nose pain, nose discharge, nose congestion, mouth pain, mouth swelling, throat pain, throat swelling, other Respiratory: denies: cough, dry, shortness of breath, hemoptysis, SOB with excertion, pleuritic pain, sputum, wheezing, other Gastrointestinal: denies: nausea, vomiting, abdominal pain, diarrhea, consti pation, melena, hematochezia, other Genitourinary: denies: dysuria, frequency, incontinence, hematuria, retention, other Musculoskeletal: denies: neck pain, shoulder pain, arm pain, back pain, hand pain, leg pain, foot pain, other Skin: denies: rash, lesions, sophia, bruising, other Neurological: reports: weakness, numbness. denies: incoordination, change in speech, confusion, seizures, other - Medication Medications: Active Medications Generic Name Dose Route Start Last Admin Trade Name Freq PRN Reason Stop Dose Admin Acetaminophen 650 mg 05/13/20 04:08 05/13/20 04:24 Acetaminophen 325 Mg Tab PO 650 mg Q6H PRN Administration Headache/Fever or Pain Alprazolam 0.25 mg 05/12/20 10:28 05/12/20 15:19 Alprazolam 0.25 Mg Tab PO 0.25 mg BIDPRN PRN Administration Anxiety Atorvastatin Calcium 40 mg 05/12/20 21:00 05/12/20 20:18 Atorvastatin Calcium 40 Mg Tab PO 40 mg HS YOANNA Administration Clonidine 0.1 mg 05/13/20 10:10 05/13/20 11:12 Clonidine 0.1 Mg Tab PO 0.1 mg Q4H PRN Administration SBP Greater Than 180 Clopidogrel Bisulfate 75 mg 05/13/20 09:00 05/13/20 08:25 Clopidogrel Bisulfate 75 Mg Tab PO 75 mg DAILY YOANNA Administration Enoxaparin Sodium 40 mg 05/13/20 09:00 05/13/20 08:24 Enoxaparin Sodium 40 Mg/0.4 Ml Syringe SC 40 mg 0900 YOANNA Administration Famotidine 20 mg 05/12/20 21:00 05/13/20 08:25 Famotidine 20 Mg Tab PO 20 mg BID YOANNA Administration Insulin Human Lispro 0 units 05/12/20 01:13 05/13/20 11:11 Humalog 300 Units/3 Ml Vial SC 3 unit .MILD SLIDING SCALE PRN Administration Mild Correctional Scale Labetalol HCl 10 mg 05/12/20 01:10 05/13/20 11:13 Labetalol Hcl 100 Mg/20 Ml Vial SLOW IVP 10 mg Q10MIN PRN Administration SBP > 180 or DBP > 105 Lorazepam 0.5 mg 05/13/20 10:10 05/13/20 13:42 Lorazepam 2 Mg/Ml Vial SLOW IVP 0.5 mg Q12H PRN Administration Anxiety/Agitation Sodium Chloride 10 ml 05/12/20 09:00 05/13/20 08:25 Flush - Normal Saline 10 Ml Syringe IVF 10 ml Q12HR YOANNA Administration - Exam General Appearance: awake alert Eye: PERRL ENT: normocephalic atraumatic Neck: supple Respiratory: CTAB Cardiovascular: RRR Gastrointestinal: soft, non-tender, no hepatomegaly Extremities: no cyanosis, no clubbing Skin: normal turgor, no lesions Neurological: no new deficit Musculoskeletal: normal tone, no muscle wasting PSYCH: normal affect, normal behavior, A&O x 3 Results - Labs Result Diagrams: 05/11/20 22:08 05/12/20 03:42 Lab results: WBC 11.7 thou/uL (4.8-10.8) H 05/11/20 22:08 Hgb 16.2 g/dL (14.0-18.0) 05/11/20 22:08 Hct 49.2 % (42.0-52.0) 05/11/20 22:08 MCV 87.4 fL (78.0-98.0) 05/11/20 22:08 Plt Count 219 thou/uL (130-400) 05/11/20 22:08 Neutrophils % 71.7 % (42.0-75.0) 05/11/20 22:08 Sodium 137 mmol/L (136-145) 05/12/20 03:42 Potassium 3.9 mmol/L (3.5-5.1) 05/12/20 03:42 Chloride 104 mmol/L (98-107) 05/12/20 03:42 Carbon Dioxide 23 mmol/L (22-29) 05/12/20 03:42 BUN 18 mg/dL (8.4-25.7) 05/12/20 03:42 Creatinine 1.60 mg/dL (0.7-1.3) H 05/12/20 03:42 Glucose 209 mg/dL (70-105) H 05/12/20 03:42 Calcium 8.3 mg/dL (7.8-10.44) 05/12/20 03:42 Total Bilirubin 0.4 mg/dL (0.2-1.2) 05/12/20 03:42 AST 36 U/L (5-34) H 05/12/20 03:42 ALT 61 U/L (8-55) H 05/12/20 03:42 Alkaline Phosphatase 70 U/L (40-110) 05/12/20 03:42 Troponin I Less than 0.010 ng/mL (< 0.028) 05/11/20 22:08 Serum Total Protein 6.0 g/dL (6.0-8.3) 05/12/20 03:42 Albumin 3.4 g/dL (3.5-5.0) L 05/12/20 03:42 PN A/P - Plan Daily Plan: PT/OT, speech therapy, DVT proph w/SCDs 60-year-old male status post TPA. He had improvement in deficits. Patient continues to be hypertensive. Head CT 24 hours post TPA is negative for acute intracranial process or bleed Patient is somewhat agitated and is unable to tolerate MRI brain. Consider head CT 48 hours after symptom poor onset to to assess for acute intracranial process. Start aspirin and high intensity statin for secondary stroke prevention. Strict control of blood sugar and blood glucose. Continue telemetry. CTA of the head and neck reviewed results noted. Neurochecks every 4 hours. Continue home medications. 2D echo showed ejection fraction of 50-55 %. No PFO or thrombus. Continue medical management per primary team. Plan discussed with the patient, . nursing staff and during MDR rounds
--- NOTE | 2020-05-13 16:58 | PDOC.HOSPP ---
- Subjective Encounter Date: 05/13/20 Encounter Time: 08:20 Subjective: Patient seen for follow-up regarding acute ischemic cerebrovascular accident. Reports feeling better. - Objective Vital Signs & Weight: Vital Signs (12 hours) Temp Pulse Pulse Resp BP BP BP 05/13/20 15:42 97.8 F 64 16 160/84 H 05/13/20 15:09 74 16 160/84 H 05/13/20 14:40 75 196/95 H 05/13/20 13:00 60 18 165/93 H 05/13/20 11:49 98.6 F 71 16 194/100 H 05/13/20 11:13 70 190/103 H 05/13/20 11:12 190/103 H 05/13/20 10:21 72 193/97 H 05/13/20 09:49 75 222/97 H 05/13/20 08:25 75 05/13/20 08:00 05/13/20 07:53 98 F 75 16 208/91 H Pulse Ox 05/13/20 15:42 94 L 05/13/20 15:09 05/13/20 14:40 05/13/20 13:00 05/13/20 11:49 96 05/13/20 11:13 05/13/20 11:12 05/13/20 10:21 05/13/20 09:49 05/13/20 08:25 05/13/20 08:00 95 05/13/20 07:53 95 Weight Weight 253 lb Most Recent Monitor Data Heart Rate from ECG 70 NIBP 170/76 NIBP BP-Mean 107 Respiration from ECG 18 SpO2 97 I&O: 05/12/20 05/13/20 05/14/20 06:59 06:59 06:59 Intake Total 645 2435 720 Output Total 250 2300 Balance 395 135 720 Result Diagrams: 05/11/20 22:08 05/12/20 03:42 Additional Labs: Accuchecks 05/13/20 05/13/20 05/12/20 11:00 05:42 20:26 POC Glucose 231 H 160 H 248 H I reviewed patient's labs and MAR EKG Reviewed by me: Yes (Telemetry: NSR) Hospitalist ROS - Review of Systems Cardiovascular: denies: chest pain, palpitations, orthopnea, paroxysmal noc. dyspnea, edema, light headedness Gastrointestinal: denies: nausea, vomiting, abdominal pain, diarrhea, cons tipation, melena, hematochezia Neurological: reports: weakness - Medication Medications: Active Medications Generic Name Dose Route Start Last Admin Trade Name Freq PRN Reason Stop Dose Admin Acetaminophen 650 mg 05/13/20 04:08 05/13/20 04:24 Acetaminophen 325 Mg Tab PO 650 mg Q6H PRN Administration Headache/Fever or Pain Alprazolam 0.25 mg 05/12/20 10:28 05/12/20 15:19 Alprazolam 0.25 Mg Tab PO 0.25 mg BIDPRN PRN Administration Anxiety Atorvastatin Calcium 40 mg 05/12/20 21:00 05/12/20 20:18 Atorvastatin Calcium 40 Mg Tab PO 40 mg HS YOANNA Administration Clonidine 0.1 mg 05/13/20 10:10 05/13/20 11:12 Clonidine 0.1 Mg Tab PO 0.1 mg Q4H PRN Administration SBP Greater Than 180 Clopidogrel Bisulfate 75 mg 05/13/20 09:00 05/13/20 08:25 Clopidogrel Bisulfate 75 Mg Tab PO 75 mg DAILY YOANNA Administration Enoxaparin Sodium 40 mg 05/13/20 09:00 05/13/20 08:24 Enoxaparin Sodium 40 Mg/0.4 Ml Syringe SC 40 mg 0900 YOANNA Administration Famotidine 20 mg 05/12/20 21:00 05/13/20 08:25 Famotidine 20 Mg Tab PO 20 mg BID YOANNA Administration Insulin Human Lispro 0 units 05/12/20 01:13 05/13/20 11:11 Humalog 300 Units/3 Ml Vial SC 3 unit .MILD SLIDING SCALE PRN Administration Mild Correctional Scale Labetalol HCl 10 mg 05/12/20 01:10 05/13/20 11:13 Labetalol Hcl 100 Mg/20 Ml Vial SLOW IVP 10 mg Q10MIN PRN Administration SBP > 180 or DBP > 105 Lorazepam 0.5 mg 05/13/20 10:10 05/13/20 13:42 Lorazepam 2 Mg/Ml Vial SLOW IVP 0.5 mg Q12H PRN Administration Anxiety/Agitation Sodium Chloride 10 ml 05/12/20 09:00 05/13/20 08:25 Flush - Normal Saline 10 Ml Syringe IVF 10 ml Q12HR YOANNA Administration - Exam General Appearance: awake alert General - other findings: Morbid obesity Eye: anicteric sclera ENT: moist mucosa Neck: supple Heart: RRR Respiratory: CTAB Gastrointestinal: soft, non-tender Skin: no rashes Neurological - other findings: Lower extremity weakness Psychiatric: normal affect Hosp A/P - Plan Assessment # acute ischemic stroke # HTN # history of CAD w/ 3 stents # DM Plan: -Status post TPA -MRI brain or CT angiogram today depending on patient's degree of claustrophobia -PRN IV antihypertensives. -CAD stable. -Blood sugars are high, start moderate insulin sliding scale.
--- NOTE | 2020-05-13 19:39 | CT ---
Exam: Head CT without contrast HISTORY: Status post TPA. Recent stroke. COMPARISON: 05/12/2020 FINDINGS: Hemorrhage: No intraparenchymal hemorrhage or extra-axial hematoma. Brain parenchyma: Cortical darnell-white matter differentiation is preserved. No mass effect or midline shift. Basilar cisterns are patent. Ventricular system: Ventricles and sulci are patent and symmetric. Calvarium: Intact. Sinuses and mastoid air cells: Adequate aeration. IMPRESSION: 1. No significant interval change. 2. No acute intracranial process.
[2020-05-13] MEDS: Tamsulosin HCl 0.4 MG CAP PO SCH (20:17)
[2020-05-13] MEDS: Atorvastatin Calcium 40 MG TAB PO SCH (20:18)
--- NOTE | 2020-05-13 23:48 | CON ---
DATE OF CONSULTATION: 05/13/2020 INDICATION FOR CONSULTATION: A 60-year-old patient with history of coronary artery disease, who has undergone multiple angioplasty and stent placements in the past. He has had multiple CVAs. He again presented with a CVA and underwent tPA therapy, and now we are being asked to see him due to history of coronary artery disease and poorly controlled hypertension. HISTORY OF PRESENT ILLNESS: This is a very unfortunate 60-year-old gentleman who has been seen by Dr. Felix in the past. He suffered a myocardial infarction in the past. He has undergone angioplasty and stent placements. He has diffuse multiple coronary artery disease lesions. His last cardiac catheterization was by Dr. Felix, I believe in 2018. At that time, he was found to have a lesion on the first diagonal branch of 90%. He had a proximal left anterior descending artery was 30% stenosis. The left circumflex had a 50% proximal stenosis and the second and third obtuse marginal branches had both 70% and 90% stenosis. The right coronary artery had a 50% stenosis. I do not think he underwent any further stent placement at that time. It is difficult to determine whether or not he has had any since that time, but I do not see any additional episodes and cannot actually see what the stents were placed earlier. 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 He went home, then he knows that he had some loss of motor function and feeling of the right side in his arm and right leg. He was in the hospital. I believe he was given tPA therapy, was in the unit, now had been transferred to the floor. He is still having problems with difficulty with his blood pressure, but he denied any chest pain. He does have some shortness of breath, which is not unusual. He is overweight and knows his blood pressure is elevated, but he has not been started back on his routine medications such as beta blockers. We will reinstate the remainder of his blood pressure medications. If it does not control, we will need to add further medications. PAST MEDICAL HISTORY: Significant for CVAs in the past, coronary artery disease, angioplasty, stent placements, myocardial infarction. He has a history of type 2 diabetes, which has been poorly controlled. He has dyslipidemia, hypertension, gout, and nephrolithiasis. He has had the stent placements. He has had nephrolithiasis removal. He has had an appendectomy. FAMILY HISTORY: Noncontributory. SOCIAL HISTORY: There is no history of alcohol or tobacco abuse. MEDICATIONS: Prior to admission included Plavix 75 mg a day, furosemide 20 mg once a day, lisinopril 40 mg a day, potassium 10 mEq a day, isosorbide mononitrate 60 mg once every morning, atorvastatin 80 mg a day, Ranexa 1000 mg b.i.d. which he is not taking routinely because this makes him nauseated, metformin 1000 mg b.i.d., metoprolol 50 mg half a tablet b.i.d., nitroglycerin p.r.n. as needed. He also takes 81 mg of aspirin, vitamin D3, ferrous sulfate, and he has also been taking Vascepa 1 g two capsules twice a day, but says he has been unable to afford this medication, he has not been taking it. He also takes glipizide 10 mg one tablet b.i.d. and tamsulosin 0.4 mg once a day. ALLERGIES: HE SAYS HE IS ALLERGIC TO DILAUDID AND REGULAR STRENGTH ASPIRIN. REVIEW OF SYSTEMS: A 12-point review of systems unremarkable, was noted in the history of present illness. PHYSICAL EXAMINATION: GENERAL: Reveals a middle-aged obese gentleman, who is in no acute distress at this time. He is alert. He is oriented. VITAL SIGNS: His vital signs show he is afebrile. Heart rate is in the 60s and shows a sinus rhythm, respiratory rate 16, O2 saturation 94%, and blood pressure is 160/84. HEENT: Shows the head to be normocephalic and atraumatic. Carotid pulses are present. I do not hear any bruits. CHEST: Clear to auscultation. I did not hear any rales, rhonchi, or wheezing. CARDIOVASCULAR: Revealed a regular rate and rhythm. He has normal S1 and S2. I cannot hear an S3 nor an S4. No other any significant murmurs, heaves, thrills, bruits, or rubs. ABDOMEN: Shows obesity with positive bowel sounds. No organomegaly or masses are noted. EXTREMITIES: His pulses show popliteal pulses to be present. Pedal pulses are decreased. There was no lower extremity edema. NEUROLOGIC: The patient appears to be at this time to have no gross focal motor deficits, but he still says that he has some weakness in the right lower extremity. SKIN: Warm and dry. LABORATORY DATA: Shows a WBC of 11.7, hemoglobin was 16.2, platelet count was 219,000. Sodium was 137, potassium 3.9. His BUN was 18 with a creatinine of 1.6, and blood sugar was in the 200s. AST was also elevated at 61 and AST of 36. Cardiac enzymes are unremarkable. There is no indication of myocardial infarction. His LDL was 54 with HDL of 27 and triglycerides 123. IMPRESSION: 1. Elderly gentleman with multiple risk factors for coronary artery disease and he also has coronary artery disease already diagnosed, but he has hypertension, diabetes, and hypercholesterolemia. At this time, the coronary artery status appears to be stable. 2. History of cerebrovascular accident or transient ischemic attack. I believe he has had a CT scan. The CT scan is still pending, but there was no acute evidence of a stroke at this time, but he was due to receive tPA apparently. We will continue to monitor the patient carefully. 3. History of hypertension. We will need to readjust his medications. We will restart his metoprolol. He will also need his tamsulosin that he takes for his prostate hypertrophy. This may also lower the blood pressure. 4. Dyslipidemia. We will continue his statin medications. Further care of the patient will be by Dr. Felix when he visits with the patient tomorrow. Echocardiogram has been ordered. We will review that echocardiogram once he becomes available. Job ID: [id number] MTDD
[2020-05-14 06:32] LABS: #Basophils 0.1 thou/uL (0.0-0.2); #Eosinphils 0.3 thou/uL (0.0-0.7); #Lymphocytes 1.8 thou/uL (1.20-3.40); #Monocytes 1.2 thou/uL (0.11-0.59); #Neutrophils 6.1 thou/uL (1.40-6.50); %Basophils 0.9 % (0.0-1.0); %Eosinophils 3.4 % (0.0-10.0); %Lymphocytes 19.3 % (21.0-51.0); %Monocytes 12.2 % (0.0-10.0); %Neutrophils 64.3 % (42.0-75.0); Hemoglobin 15.8 g/dL (14.0-18.0); Mean Corpuscular HGB CONC 32.7 g/dL (32.0-36.0); Mean Corpuscular Hemoglobin 29.4 pg (27.0-31.0); Mean Corpuscular Volume 89.8 fL (78.0-98.0); Mean Platelet Volume 9.7 fL (7.4-10.4); Platelet Count 178 thou/uL (130-400); Red Blood Cell (RBC) Count 5.36 mill/uL (4.70-6.10); White Blood Cell (WBC) Count 9.5 thou/uL (4.8-10.8)
[2020-05-14 07:28] LABS: Anion Gap 13 mmol/L (10-20); BUN (Urea Nitrogen) 10 mg/dL (8.4-25.7); Calc. Creatinine Clearance 102 mL/min (70-130); Carbon Dioxide 26 mmol/L (22-29); Chloride 102 mmol/L (98-107); Estimated GFR-MDRD 58; Glucose 219 mg/dL (70-105); Potassium 3.8 mmol/L (3.5-5.1); Sodium 137 mmol/L (136-145)
[2020-05-14] MEDS: Clopidogrel Bisulfate 75 MG TAB PO SCH (08:51)
[2020-05-14] MEDS: Enoxaparin Sodium 40 MG/0.4 ML SYRINGE SC SCH (08:52)
[2020-05-14] MEDS: Famotidine 20 MG TAB PO SCH ×2 (08:52→20:49)
[2020-05-14] MEDS ORDERED: Lisinopril 20 MG TAB PO SCH (09:15)
--- NOTE | 2020-05-14 11:35 | PDOC.NEUPN ---
- Subjective Encounter Date: 05/14/20 Subjective: Patient feels better today and his blood pressure is under control. - Objective Vital Signs & Weight: Vital Signs (12 hours) Temp Pulse Resp BP BP Pulse Ox 05/14/20 11:10 97.6 F 78 18 152/93 H 96 05/14/20 09:55 141/81 H 05/14/20 08:00 96 05/14/20 07:32 97.4 F L 71 16 173/76 H 96 05/14/20 06:39 97.4 F L 72 16 154/68 H 94 L 05/13/20 23:37 98.2 F 74 18 167/90 H 97 Weight Weight 245 lb Most Recent Monitor Data Heart Rate from ECG 70 NIBP 170/76 NIBP BP-Mean 107 Respiration from ECG 18 SpO2 97 I&O: 05/13/20 05/14/20 05/15/20 06:59 06:59 06:59 Intake Total 2435 1580 480 Output Total 2300 100 Balance 135 1480 480 Result Diagrams: 05/14/20 04:20 05/14/20 04:00 Additional Labs: Accuchecks 05/14/20 05/14/20 05/13/20 10:30 05:41 20:53 POC Glucose 285 H 209 H 298 H 05/13/20 17:00 POC Glucose 246 H Radiology Reviewed by me: Yes EKG Reviewed by me: Yes ROS - Review of Systems Constitutional: denies: fever, chills, sweats, weakness, malaise, other Eyes: denies: pain, vision change, conjunctivae inflammation, eyelid inflammation, redness, other ENT: denies: ear pain, ear discharge, nose pain, nose discharge, nose congestion, mouth pain, mouth swelling, throat pain, throat swelling, other Respiratory: denies: cough, dry, shortness of breath, hemoptysis, SOB with excertion, pleuritic pain, sputum, wheezing, other Gastrointestinal: denies: nausea, vomiting, abdominal pain, diarrhea, constipation, melena, hematochezia, other Genitourinary: denies: dysuria, frequency, incontinence, hematuria, retention, other Musculoskeletal: denies: neck pain, shoulder pain, arm pain, back pain, hand pain, leg pain, foot pain, other Neurological: reports: weakness, numbness, incoordination. denies: change in speech, confusion, seizures, other All Systems: All other systems reviewed; all pertinent +/- noted in HPI/Subj - Medication Medications: Active Medications Generic Name Dose Route Start Last Admin Trade Name Freq PRN Reason Stop Dose Admin Acetaminophen 650 mg 05/13/20 04:08 05/13/20 04:24 Acetaminophen 325 Mg Tab PO 650 mg Q6H PRN Administration Headache/Fever or Pain Alprazolam 0.25 mg 05/12/20 10:28 05/12/20 15:19 Alprazolam 0.25 Mg Tab PO 0.25 mg BIDPRN PRN Administration Anxiety Atorvastatin Calcium 40 mg 05/12/20 21:00 05/13/20 20:18 Atorvastatin Calcium 40 Mg Tab PO 40 mg HS YOANNA Administration Clonidine 0.1 mg 05/13/20 10:10 05/13/20 11:12 Clonidine 0.1 Mg Tab PO 0.1 mg Q4H PRN Administration SBP Greater Than 180 Clopidogrel Bisulfate 75 mg 05/13/20 09:00 05/14/20 08:51 Clopidogrel Bisulfate 75 Mg Tab PO 75 mg DAILY YOANNA Administration Enoxaparin Sodium 40 mg 05/13/20 09:00 05/14/20 08:52 Enoxaparin Sodium 40 Mg/0.4 Ml Syringe SC 40 mg 0900 YOANNA Administration Famotidine 20 mg 05/12/20 21:00 05/14/20 08:52 Famotidine 20 Mg Tab PO 20 mg BID YOANNA Administration Insulin Human Lispro 0 units 05/13/20 17:00 05/13/20 21:34 Humalog 300 Units/3 Ml Vial SC 6 units .MODERATE SLIDING SC PRN Administration Moderate Correctional Scale Isosorbide Mononitrate 60 mg 05/14/20 09:00 05/14/20 08:51 Isosorbide Mononitrate Er 60 Mg Tab PO 60 mg DAILY YOANNA Administration Labetalol HCl 10 mg 05/12/20 01:10 05/13/20 11:13 Labetalol Hcl 100 Mg/20 Ml Vial SLOW IVP 10 mg Q10MIN PRN Administration SBP > 180 or DBP > 105 Lorazepam 0.5 mg 05/13/20 10:10 05/13/20 13:42 Lorazepam 2 Mg/Ml Vial SLOW IVP 0.5 mg Q12H PRN Administration Anxiety/Agitation Metoprolol Succinate 25 mg 10/08/20 09:00 05/14/20 08:51 Metoprolol Succinate Xl 25 Mg Tab PO 25 mg DAILY YOANNA Administration Sodium Chloride 10 ml 05/12/20 09:00 05/14/20 08:54 Flush - Normal Saline 10 Ml Syringe IVF 10 ml Q12HR YOANNA Administration Tamsulosin HCl 0.4 mg 05/13/20 21:00 05/13/20 20:17 Tamsulosin Hcl 0.4 Mg Cap PO 0.4 mg HS YOANNA Administration - Exam General Appearance: awake alert Eye: PERRL ENT: normocephalic atraumatic Neck: supple Respiratory: CTAB Cardiovascular: RRR Gastrointestinal: soft Extremities: no cyanosis Skin: normal turgor Neurological: no new deficit Musculoskeletal: normal tone, no muscle wasting PSYCH: normal affect, normal behavior, A&O x 3 Results - Labs Result Diagrams: 05/14/20 04:20 05/14/20 04:00 Lab results: WBC 9.5 thou/uL (4.8-10.8) 05/14/20 04:20 Hgb 15.8 g/dL (14.0-18.0) 05/14/20 04:20 Hct 48.2 % (42.0-52.0) 05/14/20 04:20 MCV 89.8 fL (78.0-98.0) 05/14/20 04:20 Plt Count 178 thou/uL (130-400) 05/14/20 04:20 Neutrophils % 64.3 % (42.0-75.0) 05/14/20 04:20 Sodium 137 mmol/L (136-145) 05/14/20 04:00 Potassium 3.8 mmol/L (3.5-5.1) 05/14/20 04:00 Chloride 102 mmol/L (98-107) 05/14/20 04:00 Carbon Dioxide 26 mmol/L (22-29) 05/14/20 04:00 BUN 10 mg/dL (8.4-25.7) 05/14/20 04:00 Creatinine 1.28 mg/dL (0.7-1.3) 05/14/20 04:00 Glucose 219 mg/dL (70-105) H 05/14/20 04:00 Calcium 9.0 mg/dL (7.8-10.44) 05/14/20 04:00 Total Bilirubin 0.4 mg/dL (0.2-1.2) 05/12/20 03:42 AST 36 U/L (5-34) H 05/12/20 03:42 ALT 61 U/L (8-55) H 05/12/20 03:42 Alkaline Phosphatase 70 U/L (40-110) 05/12/20 03:42 Troponin I Less than 0.010 ng/mL (< 0.028) 05/11/20 22:08 Serum Total Protein 6.0 g/dL (6.0-8.3) 05/12/20 03:42 Albumin 3.4 g/dL (3.5-5.0) L 05/12/20 03:42 - Radiology Interpretation CT scan - head Status: image reviewed by me, report reviewed by me Additional Comment: Head CT reviewed and did not reveal acute intracranial pathology PN A/P - Plan Daily Plan: plan discussed w/ family, PT/OT, speech therapy, DVT proph w/SCDs 60-year-old male status post TPA. He had improvement in deficits. Patient blood pressure is under control overnight and he feels much better today. Repeat head CT 48 hours after symptom onset to assess for acute intracranial process is negative for acute stroke or bleed Head CT 24 hours post TPA is negative for acute intracranial process or bleed Continue Plavix and high intensity statin for secondary stroke prevention. Strict control of blood sugar and blood glucose. Continue telemetry. Cardiology on board. CTA of the head and neck reviewed results noted. Neurochecks every 4 hours. Continue home medications. 2D echo showed ejection fraction of 50-55 %. No PFO or thrombus. Continue medical management per primary team and cardiology Plan discussed with the patient, . nursing staff and during MDR rounds
[2020-05-14] MEDS: HumaLOG 300 UNITS/3 ML VIAL SC PRN ×2 (11:36→20:50)
[2020-05-14] MEDS: Acetaminophen 325 MG TAB PO PRN ×2 (15:11→21:07)
--- NOTE | 2020-05-14 15:33 | PDOC.HOSPP ---
- Subjective Encounter Date: 05/14/20 Encounter Time: 07:20 Subjective: Patient seen for follow-up for ischemic stroke. Reports feeling better. - Objective Vital Signs & Weight: Vital Signs (12 hours) Temp Pulse Resp BP BP Pulse Ox 05/14/20 11:10 97.6 F 78 18 152/93 H 96 05/14/20 09:55 141/81 H 05/14/20 08:00 96 05/14/20 07:32 97.4 F L 71 16 173/76 H 96 05/14/20 06:39 97.4 F L 72 16 154/68 H 94 L Weight Weight 245 lb Most Recent Monitor Data Heart Rate from ECG 70 NIBP 170/76 NIBP BP-Mean 107 Respiration from ECG 18 SpO2 97 I&O: 05/13/20 05/14/20 05/15/20 06:59 06:59 06:59 Intake Total 2435 1580 960 Output Total 2300 100 Balance 135 1480 960 Result Diagrams: 05/14/20 04:20 05/14/20 04:00 Additional Labs: Accuchecks 05/14/20 05/14/20 05/13/20 10:30 05:41 20:53 POC Glucose 285 H 209 H 298 H 05/13/20 17:00 POC Glucose 246 H I reviewed patient's labs and MAR EKG Reviewed by me: Yes (Normal sinus rhythm on telemetry.) Hospitalist ROS - Review of Systems Gastrointestinal: denies: nausea, vomiting, abdominal pain, diarrhea, cons tipation, melena, hematochezia Genitourinary: denies: dysuria, frequency, incontinence, hematuria, retention Neurological: denies: weakness, numbness, incoordination, change in speech, confusion, seizures - Medication Medications: Active Medications Generic Name Dose Route Start Last Admin Trade Name Freq PRN Reason Stop Dose Admin Acetaminophen 650 mg 05/13/20 04:08 05/14/20 15:11 Acetaminophen 325 Mg Tab PO 650 mg Q6H PRN Administration Headache/Fever or Pain Alprazolam 0.25 mg 05/12/20 10:28 05/12/20 15:19 Alprazolam 0.25 Mg Tab PO 0.25 mg BIDPRN PRN Administration Anxiety Atorvastatin Calcium 40 mg 05/12/20 21:00 05/13/20 20:18 Atorvastatin Calcium 40 Mg Tab PO 40 mg HS YOANNA Administration Clonidine 0.1 mg 05/13/20 10:10 05/13/20 11:12 Clonidine 0.1 Mg Tab PO 0.1 mg Q4H PRN Administration SBP Greater Than 180 Clopidogrel Bisulfate 75 mg 05/13/20 09:00 05/14/20 08:51 Clopidogrel Bisulfate 75 Mg Tab PO 75 mg DAILY YOANNA Administration Enoxaparin Sodium 40 mg 05/13/20 09:00 05/14/20 08:52 Enoxaparin Sodium 40 Mg/0.4 Ml Syringe SC 40 mg 0900 YOANNA Administration Famotidine 20 mg 05/12/20 21:00 05/14/20 08:52 Famotidine 20 Mg Tab PO 20 mg BID YOANNA Administration Insulin Human Lispro 0 units 05/13/20 17:00 05/14/20 11:36 Humalog 300 Units/3 Ml Vial SC 6 units .MODERATE SLIDING SC PRN Administration Moderate Correctional Scale Isosorbide Mononitrate 60 mg 05/14/20 09:00 05/14/20 08:51 Isosorbide Mononitrate Er 60 Mg Tab PO 60 mg DAILY YOANNA Administration Labetalol HCl 10 mg 05/12/20 01:10 05/13/20 11:13 Labetalol Hcl 100 Mg/20 Ml Vial SLOW IVP 10 mg Q10MIN PRN Administration SBP > 180 or DBP > 105 Lorazepam 0.5 mg 05/13/20 10:10 05/13/20 13:42 Lorazepam 2 Mg/Ml Vial SLOW IVP 0.5 mg Q12H PRN Administration Anxiety/Agitation Metoprolol Succinate 25 mg 05/14/20 09:00 05/14/20 08:51 Metoprolol Succinate Xl 25 Mg Tab PO 25 mg DAILY YOANNA Administration Sodium Chloride 10 ml 05/12/20 09:00 05/14/20 08:54 Flush - Normal Saline 10 Ml Syringe IVF 10 ml Q12HR YOANNA Administration Tamsulosin HCl 0.4 mg 05/13/20 21:00 05/13/20 20:17 Tamsulosin Hcl 0.4 Mg Cap PO 0.4 mg HS YOANNA Administration - Exam General - other findings: Obese Eye: anicteric sclera ENT: moist mucosa Neck: supple Heart: RRR Respiratory: CTAB Gastrointestinal: soft, non-tender Extremities: no cyanosis Skin: no rashes Psychiatric: normal affect, normal behavior Hosp A/P - Plan Assessment # acute ischemic stroke # HTN # history of CAD w/ 3 stents # DM Plan: -Status post TPA, improving -Continue Plavix and Lipitor. -Hypertension has improved. -CAD stable. -Blood sugars are high, start aggressive insulin sliding scale add Lantus 5 units at bedtime. -Patient's updated by the bedside.
[2020-05-14] MEDS ORDERED: HumaLOG 300 UNITS/3 ML VIAL SC PRN (15:34)
[2020-05-14] MEDS: Icosapent Ethyl 1 GM CAPSULE PO SCH (17:16)
[2020-05-14] MEDS: Lisinopril 20 MG TAB PO SCH (20:49)
[2020-05-14] MEDS: Tamsulosin HCl 0.4 MG CAP PO SCH (20:50)
[2020-05-14] MEDS: Atorvastatin Calcium 40 MG TAB PO SCH (20:50)
[2020-05-14] MEDS ORDERED: Insulin Glargine 5 UNITS in Pre-Filled Syringe SC SCH (21:00)
[2020-05-15 05:24] LABS: #Basophils 0.1 thou/uL (0.0-0.2); #Eosinphils 0.4 thou/uL (0.0-0.7); #Monocytes 0.9 thou/uL (0.11-0.59); #Neutrophils 5.3 thou/uL (1.40-6.50); %Basophils 0.7 % (0.0-1.0); %Eosinophils 4.1 % (0.0-10.0); %Lymphocytes 22.9 % (21.0-51.0); %Monocytes 10.6 % (0.0-10.0); %Neutrophils 61.7 % (42.0-75.0); Hemoglobin 15.6 g/dL (14.0-18.0); Mean Corpuscular HGB CONC 34.1 g/dL (32.0-36.0); Mean Corpuscular Hemoglobin 30.1 pg (27.0-31.0); Mean Corpuscular Volume 88.5 fL (78.0-98.0); Mean Platelet Volume 9.4 fL (7.4-10.4); Platelet Count 181 thou/uL (130-400); RBC Distribution Width 13.1 % (11.5-14.5); Red Blood Cell (RBC) Count 5.17 mill/uL (4.70-6.10); White Blood Cell (WBC) Count 8.6 thou/uL (4.8-10.8)
[2020-05-15 05:42] LABS: Anion Gap 10 mmol/L (10-20); BUN (Urea Nitrogen) 14 mg/dL (8.4-25.7); Calc. Creatinine Clearance 82 mL/min (70-130); Calcium 8.8 mg/dL (7.8-10.44); Carbon Dioxide 27 mmol/L (22-29); Chloride 104 mmol/L (98-107); Estimated GFR-MDRD 47; Glucose 373 mg/dL (70-105); Potassium 4.2 mmol/L (3.5-5.1); Sodium 137 mmol/L (136-145)
[2020-05-15] MEDS: HumaLOG 300 UNITS/3 ML VIAL SC PRN ×2 (05:48→11:10)
[2020-05-15 06:08] VITALS: BMI 39.9
[2020-05-15 08:02] VITALS: TEMP 97.5
[2020-05-15] MEDS ORDERED: Aspirin 81 mg Enteric Coated Tablet PO SCH (09:00)
[2020-05-15] MEDS: Famotidine 20 MG TAB PO SCH (09:05)
[2020-05-15] MEDS: Lisinopril 20 MG TAB PO SCH (09:05)
[2020-05-15] MEDS: Icosapent Ethyl 1 GM CAPSULE PO SCH (09:06)
[2020-05-15] MEDS: Clopidogrel Bisulfate 75 MG TAB PO SCH (09:06)
[2020-05-15] MEDS: Enoxaparin Sodium 40 MG/0.4 ML SYRINGE SC SCH (09:07)
[2020-05-15 12:24] VITALS: BP 200/109
--- NOTE | 2020-05-16 01:11 | DIS ---
DATE OF ADMISSION: 05/11/2020 DATE OF DISCHARGE: 05/15/2020 PRIMARY CARE PROVIDER: Dr. Burton Gates. DISCHARGE DIAGNOSES: 1. Acute ischemic cerebrovascular accident. 2. Status post tPA administration. 3. Hypertensive urgency. 4. Morbid obesity. 5. Chronic kidney disease, stage 3. 6. Hyponatremia. 7. Dyslipidemia. CONDITION OF PATIENT ON THE DAY OF DISCHARGE: Stable. I assessed Mr. Cartagena on the day of discharge. He denies any chest pain or shortness of breath. Vital signs are stable. S1 and S2 are heard, regular. Lungs are clear to auscultation bilaterally. CONSULTATIONS DURING THIS HOSPITALIZATION: 1. Neurology, Dr. Rodriguez. 2. Pulmonary and Critical Care Medicine, Dr. Melecio Carter. 3. Cardiology, Dr. Sylvia Aldana. HOSPITAL COURSE: Mr. Cartagena is a pleasant 60-year-old gentleman, who was admitted to [facility] on May 11, 2020, for acute ischemic cerebrovascular accident. He had an indeterminate left dubois radiata lacunar infarct. CT angiogram of [place] and neck did not show any hemodynamically significant stenosis, occlusion or aneurysmal formation in the brain. He had mild stenosis involving the right carotid bifurcation and proximal internal carotid artery. There was also noncalcified plaque involving the mid to distal common carotid artery with resultant mild stenosis based upon NASCET criteria. He received tPA. He was seen by Neurology Service. EEG was consistent with generalized nonspecific cerebral dysfunction. 2D echocardiogram showed left ventricular ejection fraction of 55%-60%, normal-sized left atrium, normal left ventricular size, mild mitral regurgitation. No thrombus was noted in the cardiac chambers. He was seen by Therapy Services. He continued to improve. He is being discharged home with outpatient physical and occupational therapy recommendation. He also had hypertensive urgency. He was seen by Cardiology Service. They increased his lisinopril dose to 40 mg b.i.d. and changed his metoprolol to metoprolol succinate 25 mg daily. He also had fasting lipid profile, which showed triglycerides 211, cholesterol 123, LDL cholesterol 54, and HDL cholesterol 27. They increased his Vascepa to 2 g two times a day. His Lipitor dose was decreased to 40 mg at bedtime. DISCHARGE MEDICATIONS: 1. Flomax 0.4 mg daily. 2. Lasix 20 mg daily. 3. Glipizide 10 mg two times a day. 4. Potassium chloride 10 mEq daily. 5. Metformin 1000 mg two times a day. 6. Plavix 75 mg daily. 7. Aspirin dose increased to 325 mg daily. 8. Ferrous sulfate 325 mg daily. 9. Imdur 60 mg daily. 10. Lipitor 40 mg at bedtime. 11. Ranexa 1000 mg two times a day. 12. Toprol-XL 25 mg daily. 13. Vascepa 2 g two times a day. 14. Lisinopril 40 mg two times a day. 15. Nitroglycerin p.r.n. The patient will need to have his creatinine checked in 3 to 5 days' time through his primary care provider, because of the increase in his TEETEE inhibitor dose. Many thanks for allowing me to participate in your patient's care. Please feel free to contact me with any questions or concerns. ACTIVITY: As tolerated. DIET: Diabetic, heart healthy, and renal. DISCHARGE DESTINATION: Home. TIME SPENT: Total amount of time spent coordinating this discharge: 32 minutes. POST ACUTE CARE FOLLOWUP: With primary care provider in 3 days and with Cardiology, Dr. Felix in 2 weeks. Job ID: [id number]
[2020-05-16] MEDS ORDERED: Aspirin 81 mg Enteric Coated Tablet PO SCH (09:00)
[2020-05-16] MEDS ORDERED: Aspirin 325 mg Enteric Coated Tablet PO SCH (09:00)
== END 2020-05-15 14:28 | disposition home or self-care (01) | DRG 62 ==
LOC: ERS 21:45 → CCU 23:07 → 2SE 05-13 02:27
PROVIDERS: ADMIT Internal Medicine; ATTEND Internal Medicine
DX: I63.9 Cerebral infarction, unspecified (principal); E87.1 Hypo-osmolality and hyponatremia; G81.91 Hemiplegia, unspecified affecting right dominant side; Z68.41 Body mass index [BMI] 40.0-44.9, adult; E66.01 Morbid (severe) obesity due to excess calories; E78.5 Hyperlipidemia, unspecified; I16.0 Hypertensive urgency; N18.30 Chronic kidney disease, stage 3 unspecified; I12.9 Hypertensive chronic kidney disease with stage 1 through stage 4 chronic kidney disease, or unspecified chronic kidney disease; R40.2362 Coma scale, best motor response, obeys commands, at arrival to emergency department; R40.2142 Coma scale, eyes open, spontaneous, at arrival to emergency department; R40.2252 Coma scale, best verbal response, oriented, at arrival to emergency department; I25.10 Atherosclerotic heart disease of native coronary artery without angina pectoris; E11.22 Type 2 diabetes mellitus with diabetic chronic kidney disease; R29.707 NIHSS score 7; M10.9 Gout, unspecified; Z90.49 Acquired absence of other specified parts of digestive tract; Z95.5 Presence of coronary angioplasty implant and graft; I25.2 Old myocardial infarction; Z88.6 Allergy status to analgesic agent; Z88.8 Allergy status to other drugs, medicaments and biological substances; Z79.01 Long term (current) use of anticoagulants; Z79.899 Other long term (current) drug therapy; Z79.82 Long term (current) use of aspirin
CPT/HCPCS: 36415; 36416; 70450; 70496; 70498; 80048; 80053; 80061; 84484; 85025; 85610; 85730; 86850; 86900; 86901; 90471; 90662; 90732; 93005; 93306; 94760; 95712; 95816; 95819; 96365; 99292; G0008; G0009; J1650; J1815; J2060; J2997; Q9967

== ENCOUNTER 2020-06-24 13:44 | Outpatient (CLI) | payer OTHER ==
--- NOTE | 2020-06-24 15:29 | CT ---
EXAM: ABDOMEN AND PELVIC CT SCAN WITHOUT IV CONTRAST: 06/24/20 HISTORY: Elevated PSA, history of kidney stones, chronic renal impairment. FINDINGS: The lung bases appear to be clear of acute process. Some fatty change in the liver. At least one smal l gallstone is noted in the gallbladder without pericholecystic fluid or evidence for acute cholecyst itis. No common duct dilatation. Pancreas and spleen and adrenal glands are unremarkable. 2 cm diamet er lateral left renal cyst. Irregularly shaped 0.5 x 1.0 cm left lower pole renal calculus. Well chiquita inated smooth area of cortical thinning involving the anterior and lateral portion of the left kidney in the lower pole region. No renal hydronephrosis. There is a very tiny calcific focus which is in c ontact with the distal right ureter and could potentially be a nonobstructing right ureteral calculus or could represent a small vascular calcification immediately adjacent to the ureter. I favor this t o be a small vascular calcification over that of a small ureteral calculus. No evidence for large or small bowel obstruction. No CT evidence for acute appendicitis. Small fat containing umbilical hernia . Urinary bladder appears unremarkable. Degenerative disease of the lumbar spine, particularly L5-S1. IMPRESSION: 1. Small nonobstructing left lower pole renal calculus. No evidence for acute obstruction. 2. Other findings as above. POS: RRE
== END 2020-06-24 13:45 | disposition home or self-care (01) ==
LOC: TBSIIMAG 13:44
PROVIDERS: ATTEND Urology
DX: N18.9 Chronic kidney disease, unspecified (principal); R97.20 Elevated prostate specific antigen [PSA]; N20.0 Calculus of kidney; K80.20 Calculus of gallbladder without cholecystitis without obstruction; K42.9 Umbilical hernia without obstruction or gangrene; M47.817 Spondylosis without myelopathy or radiculopathy, lumbosacral region; M47.816 Spondylosis without myelopathy or radiculopathy, lumbar region; N28.89 Other specified disorders of kidney and ureter; N28.1 Cyst of kidney, acquired; Z87.442 Personal history of urinary calculi
CPT/HCPCS: 74176

== ENCOUNTER 2020-08-19 12:36 | Outpatient (CLI) | payer OTHER ==
[2020-08-19] MEDS ORDERED: Magnevist 469MG/ML 20 ML VIAL ONE (14:17)
--- NOTE | 2020-08-19 15:18 | MRI ---
MR OF THE PELVIS WITH AND WITHOUT CONTRAST INDICATION: Prostate Cancer With history of prostate biopsy last year COMPARISON: None TECHNIQUE: Multiplanar, multisequence MR images were obtained of the pelvis with and without IV contr ast. 20 cc of MultiHance was utilized for the examination. The examination was reviewed on a separate [employer] 3-D workstation for multiplanar metric evaluation. FINDINGS: Prostate size: The prostate measured 5.3 x 4.4 x 4.8cm. 55.19 cc. Peripheral zone: No area of restricted diffusion is seen within the peripheral zone. Central zone: No suspicious signal abnormality or focal lesion. There are prominent BPH nodules withi n the mid gland central zone bilaterally. There is a herniated BPH nodule seen near the right base. Neural vasculature: No evidence of neurovascular invasion Regional lymphadenopathy: None Dynamic contrast enhancement: Negative. Osseous structures: No suspicious osseous lesion is identified. Additional findings: None.. IMPRESSION: 1. PIRADS 2- Low (clinically significant cancer is unlikely to be present.)
== END 2020-08-19 12:37 | disposition home or self-care (01) ==
LOC: TBSIIMAG 12:36
PROVIDERS: ATTEND Urology
DX: R97.20 Elevated prostate specific antigen [PSA] (principal); F40.240 Claustrophobia
CPT/HCPCS: 72197; A9579

== ENCOUNTER 2021-03-15 15:53 | Inpatient (IN) | payer OTHER ==
[2021-03-15 18:01] LABS: CKMB 2.7 ng/mL (0-6.6)
[2021-03-15] MEDS ORDERED: Morphine 4 MG/ML VIAL ONE (18:49)
[2021-03-15] MEDS ORDERED: Morphine 2 MG/ML VIAL ONE (19:47)
[2021-03-15] MEDS ORDERED: Nitroglycerin 50 MG/250 ML BOT 0 ML ONE (20:00)
[2021-03-15] MEDS ORDERED: Nitroglycerin 50 MG/250 ML BOT 250 ML ONE (20:01)
[2021-03-15 20:05] LABS: Magnesium 1.7 mg/dL (1.6-2.6)
[2021-03-15] MEDS ORDERED: Acetaminophen 325 MG TAB PO PRN (20:12)
[2021-03-15] MEDS ORDERED: Heparin 10,000 UNITS/ 10 ML VIAL SLOW IVP SCH (20:15)
[2021-03-15] MEDS ORDERED: Heparin 25,000 units/D5W 500 ML IVPB SCH (20:15)
[2021-03-15 22:28] LABS: SARS-CoV-2 NAA Rapid Test Not Detected (NotDetected)
[2021-03-15] MEDS ORDERED: Enoxaparin Sodium 120 MG/0.8 ML SYRINGE SC SCH (22:30)
[2021-03-15 22:47] LABS: Hemoglobin 15.3 g/dL (14.0-18.0); Platelet Count 242 thou/uL (130-400)
[2021-03-15 23:00] LABS: Troponin I 0.483 ng/mL (< 0.028)
[2021-03-16 00:55] LABS: Troponin I 0.523 ng/mL (< 0.028)
[2021-03-16] MEDS ORDERED: Nitroglycerin 50 MG/250 ML BOT 0 ML ONE (01:18)
[2021-03-16] MEDS ORDERED: Nitroglycerin 50 MG/250 ML BOT 250 ML ONE (01:19)
[2021-03-16] MEDS: Atorvastatin Calcium 40 MG TAB PO SCH ×2 (02:00→21:06)
[2021-03-16] MEDS: Famotidine 20 MG TAB PO SCH ×3 (02:00→21:05)
[2021-03-16] MEDS ORDERED: Famotidine 20 MG TAB ONE (02:22)
[2021-03-16 02:35] LABS: #Basophils 0.1 thou/uL (0.0-0.2); #Eosinphils 0.5 thou/uL (0.0-0.7); #Lymphocytes 2.1 thou/uL (1.20-3.40); #Neutrophils 6.4 thou/uL (1.40-6.50); %Basophils 0.9 % (0.0-1.0); %Eosinophils 4.6 % (0.0-10.0); %Lymphocytes 21.1 % (21.0-51.0); %Monocytes 9.9 % (0.0-10.0); %Neutrophils 63.5 % (42.0-75.0); Hemoglobin 15.1 g/dL (14.0-18.0); Mean Corpuscular HGB CONC 33.8 g/dL (32.0-36.0); Mean Corpuscular Hemoglobin 29.2 pg (27.0-31.0); Mean Corpuscular Volume 86.5 fL (78.0-98.0); Mean Platelet Volume 9.8 fL (7.4-10.4); Platelet Count 204 thou/uL (130-400); RBC Distribution Width 13.2 % (11.5-14.5); Red Blood Cell (RBC) Count 5.18 mill/uL (4.70-6.10)
[2021-03-16 03:34] LABS: Anion Gap 13 mmol/L (10-20); BUN (Urea Nitrogen) 23 mg/dL (8.4-25.7); Calc. Creatinine Clearance 0 mL/min (70-130); Calcium 9.2 mg/dL (7.8-10.44); Carbon Dioxide 23 mmol/L (22-29); Cardiac Risk 5.6 (Less than 4.5); Chloride 102 mmol/L (98-107); Cholesterol 186 mg/dl (< 200 Desired); Glucose 362 mg/dL (70-105); HDL Cholesterol 33 mg/dL (>60 Neg Risk); LDL Cholesterol, Calculated 77 mg/dL; Potassium 4.4 mmol/L (3.5-5.1); Sodium 134 mmol/L (136-145); Triglycerides 382 mg/dL (Less than 150)
[2021-03-16 03:46] LABS: Critical Call Chem Troponin I RESULT DECREASING
[2021-03-16 04:04] LABS: CKMB 2.4 ng/mL (0-6.6)
[2021-03-16] MEDS: Morphine 4 MG/ML VIAL SLOW IVP PRN ×3 (05:22→12:47)
[2021-03-16] MEDS: Nitroglycerin 50 MG/250 ML BOT 250 ML IVPB SCH ×5 (05:35→22:45)
[2021-03-16] MEDS ORDERED: Clopidogrel Bisulfate 75 MG TAB PO SCH (09:00)
[2021-03-16] MEDS: Aspirin 325 mg Enteric Coated Tablet PO SCH (09:33)
[2021-03-16] MEDS: Sodium Chloride 0.9% 1,000 ML IV SCH ×4 (09:33→18:12)
[2021-03-16] MEDS ORDERED: Heparin 10,000 UNITS/ 10 ML VIAL ONE (10:39)
[2021-03-16] MEDS ORDERED: Verapamil 5 MG/2 ML VIAL ONE (10:39)
[2021-03-16] MEDS ORDERED: Nitroglycerin 100MG/250ML BOT 250 ML ONE (10:40)
[2021-03-16] MEDS ORDERED: Adenosine 6 MG/2 ML VIAL ONE (10:48)
[2021-03-16] MEDS ORDERED: Lidocaine 1% (PF) 30 ML VIAL ONE (11:23)
[2021-03-16] MEDS ORDERED: Labetalol HCl 100 MG/20 ML VIAL ONE (11:58)
[2021-03-16] MEDS ORDERED: Sodium Chloride 0.9% 200 ML IV PRN (12:11)
[2021-03-16] MEDS ORDERED: Nitroglycerin 0.4 MG TAB (25 Tab Bottle) SL PRN (12:11)
[2021-03-16] MEDS ORDERED: Acetaminophen/Codeine 30-300mg Tablet PO PRN (12:11)
[2021-03-16] MEDS ORDERED: hydrALAZINE 20 MG/ML VIAL ONE (12:27)
[2021-03-16] MEDS ORDERED: Carvedilol 6.25 MG TAB PO SCH ×2 (13:00→21:00)
[2021-03-16] MEDS ORDERED: Amlodipine 5 MG TAB PO SCH ×2 (13:00→16:30)
[2021-03-16] MEDS: Ondansetron PF 4 MG/2 ML Vial IVP PRN (13:36)
[2021-03-16] MEDS ORDERED: Ondansetron PF 4 MG/2 ML Vial IVP PRN (13:46)
[2021-03-16] MEDS ORDERED: ALPRAZolam 0.5 MG TAB PO PRN ×2 (14:27→14:44)
[2021-03-16] MEDS: ALPRAZolam 0.5 MG TAB PO PRN (15:04)
[2021-03-16] MEDS ORDERED: Dextrose 50% Abboject 50 ML SYRINGE SLOW IVP PRN (19:46)
[2021-03-16] MEDS ORDERED: Dextrose 5% in Water 1,000 ML IV PRN (19:46)
[2021-03-16] MEDS ORDERED: Atorvastatin Calcium 40 MG TAB PO SCH (21:00)
[2021-03-16] MEDS: Lantus 1000 UNITS/10 ML VIAL SC SCH (21:07)
[2021-03-16] MEDS: HumaLOG 300 UNITS/3 ML VIAL SC PRN (21:19)
[2021-03-17] MEDS: Sodium Chloride 0.9% 1,000 ML IV SCH ×3 (01:30→17:54)
[2021-03-17] MEDS: Nitroglycerin 50 MG/250 ML BOT 250 ML IVPB SCH ×3 (03:52→19:42)
[2021-03-17 03:53] LABS: #Eosinphils 0.5 thou/uL (0.0-0.7); #Lymphocytes 1.9 thou/uL (1.20-3.40); #Monocytes 1.1 thou/uL (0.11-0.59); #Neutrophils 6.5 thou/uL (1.40-6.50); %Basophils 0.5 % (0.0-1.0); %Eosinophils 4.6 % (0.0-10.0); %Lymphocytes 18.7 % (21.0-51.0); %Monocytes 11.1 % (0.0-10.0); %Neutrophils 65.1 % (42.0-75.0); Hemoglobin 14.9 g/dL (14.0-18.0); Mean Corpuscular HGB CONC 32.4 g/dL (32.0-36.0); Mean Corpuscular Hemoglobin 28.2 pg (27.0-31.0); Mean Platelet Volume 9.7 fL (7.4-10.4); Platelet Count 190 thou/uL (130-400); RBC Distribution Width 13.1 % (11.5-14.5); Red Blood Cell (RBC) Count 5.28 mill/uL (4.70-6.10); White Blood Cell (WBC) Count 9.9 thou/uL (4.8-10.8)
[2021-03-17 04:13] LABS: Anion Gap 11 mmol/L (10-20); BUN (Urea Nitrogen) 13 mg/dL (8.4-25.7); Calc. Creatinine Clearance 105 mL/min (70-130); Carbon Dioxide 23 mmol/L (22-29); Chloride 103 mmol/L (98-107); Potassium 4.1 mmol/L (3.5-5.1); Sodium 133 mmol/L (136-145)
[2021-03-17 04:14] LABS: Glucose 252 mg/dL (70-105)
[2021-03-17] MEDS: HumaLOG 300 UNITS/3 ML VIAL SC PRN ×3 (06:09→17:53)
[2021-03-17] MEDS ORDERED: Amlodipine 5 MG TAB PO SCH (09:00)
[2021-03-17] MEDS ORDERED: Lisinopril 10 MG TAB PO SCH (09:00)
[2021-03-17] MEDS: Carvedilol 6.25 MG TAB PO SCH ×3 (09:20→21:52)
[2021-03-17] MEDS: Lisinopril 10 MG TAB PO SCH (10:19)
[2021-03-17] MEDS: Amlodipine 10 MG TAB PO SCH (10:19)
[2021-03-17] MEDS: Famotidine 20 MG TAB PO SCH ×2 (10:19→21:51)
[2021-03-17] MEDS: Lantus 1000 UNITS/10 ML VIAL SC SCH ×2 (10:21→21:30)
[2021-03-17] MEDS: Aspirin 325 mg Enteric Coated Tablet PO SCH (10:26)
[2021-03-17] MEDS ORDERED: Hydrochlorothiazide 25 MG TAB PO SCH (13:00)
[2021-03-17] MEDS: metFORMIN 500 MG TAB PO SCH (17:53)
[2021-03-17 21:01] LABS: Hemoglobin 16.1 g/dL (14.0-18.0); Platelet Count 230 thou/uL (130-400)
[2021-03-17] MEDS: Atorvastatin Calcium 40 MG TAB PO SCH (21:51)
[2021-03-18] MEDS: Sodium Chloride 0.9% 1,000 ML IV SCH ×3 (02:20→16:53)
[2021-03-18 03:43] LABS: #Basophils 0.1 thou/uL (0.0-0.2); #Eosinphils 0.5 thou/uL (0.0-0.7); #Lymphocytes 2.1 thou/uL (1.20-3.40); #Monocytes 1.3 thou/uL (0.11-0.59); #Neutrophils 6.6 thou/uL (1.40-6.50); %Basophils 0.6 % (0.0-1.0); %Eosinophils 4.7 % (0.0-10.0); %Lymphocytes 19.9 % (21.0-51.0); %Monocytes 11.9 % (0.0-10.0); %Neutrophils 62.8 % (42.0-75.0); Hemoglobin 16.1 g/dL (14.0-18.0); Mean Corpuscular HGB CONC 34.2 g/dL (32.0-36.0); Mean Corpuscular Hemoglobin 29.2 pg (27.0-31.0); Mean Corpuscular Volume 85.3 fL (78.0-98.0); Mean Platelet Volume 9.5 fL (7.4-10.4); Platelet Count 196 thou/uL (130-400); RBC Distribution Width 13.1 % (11.5-14.5); Red Blood Cell (RBC) Count 5.53 mill/uL (4.70-6.10); White Blood Cell (WBC) Count 10.5 thou/uL (4.8-10.8)
[2021-03-18 03:58] LABS: Anion Gap 13 mmol/L (10-20); BUN (Urea Nitrogen) 18 mg/dL (8.4-25.7); Calc. Creatinine Clearance 92 mL/min (70-130); Calcium 9.6 mg/dL (7.8-10.44); Carbon Dioxide 23 mmol/L (22-29); Chloride 101 mmol/L (98-107); Glucose 281 mg/dL (70-105); Potassium 4.1 mmol/L (3.5-5.1); Sodium 133 mmol/L (136-145)
[2021-03-18] MEDS: HumaLOG 300 UNITS/3 ML VIAL SC PRN ×3 (05:56→16:53)
[2021-03-18] MEDS ORDERED: Carvedilol 6.25 MG TAB PO SCH ×2 (07:02→09:00)
[2021-03-18] MEDS: Amlodipine 10 MG TAB PO SCH (07:59)
[2021-03-18] MEDS: Hydrochlorothiazide 25 MG TAB PO SCH (07:59)
[2021-03-18] MEDS: Famotidine 20 MG TAB PO SCH ×2 (08:00→22:01)
[2021-03-18] MEDS: Lisinopril 10 MG TAB PO SCH ×2 (08:00→22:00)
[2021-03-18] MEDS: metFORMIN 500 MG TAB PO SCH ×2 (08:00→16:55)
[2021-03-18] MEDS: Lantus 1000 UNITS/10 ML VIAL SC SCH ×2 (08:00→22:02)
[2021-03-18] MEDS: Aspirin 325 mg Enteric Coated Tablet PO SCH (08:04)
[2021-03-18] MEDS ORDERED: Nitroglycerin 2% Ointment 1 INCH/1 GM Packet TOP SCH (09:15)
[2021-03-18] MEDS ORDERED: Spironolactone 25 MG TAB PO SCH (10:15)
[2021-03-18] MEDS ORDERED: Communication Order-Pharmacy FS SCH (13:31)
[2021-03-18] MEDS: Nitroglycerin 2% Ointment 1 INCH/1 GM Packet TOP SCH ×2 (15:12→22:01)
[2021-03-18] MEDS: Acetaminophen/Codeine 30-300mg Tablet PO PRN (15:16)
[2021-03-18] MEDS: Carvedilol 6.25 MG TAB PO SCH (19:21)
[2021-03-18] MEDS: Atorvastatin Calcium 40 MG TAB PO SCH (22:00)
[2021-03-19] MEDS ORDERED: Labetalol HCl 100 MG/20 ML VIAL SLOW IVP PRN (04:38)
[2021-03-19] MEDS ORDERED: hydrALAZINE 20 MG/ML VIAL SLOW IVP PRN (04:38)
[2021-03-19] MEDS: HumaLOG 300 UNITS/3 ML VIAL SC PRN ×3 (05:50→17:12)
[2021-03-19] MEDS: Hydrochlorothiazide 25 MG TAB PO SCH (09:48)
[2021-03-19] MEDS: Aspirin 325 mg Enteric Coated Tablet PO SCH (09:48)
[2021-03-19] MEDS: Amlodipine 10 MG TAB PO SCH (09:48)
[2021-03-19] MEDS: Lisinopril 10 MG TAB PO SCH ×2 (09:48→21:47)
[2021-03-19] MEDS: Carvedilol 6.25 MG TAB PO SCH ×2 (09:49→21:49)
[2021-03-19] MEDS: Famotidine 20 MG TAB PO SCH ×2 (09:50→21:46)
[2021-03-19] MEDS: Spironolactone 25 MG TAB PO SCH (09:50)
[2021-03-19] MEDS: metFORMIN 500 MG TAB PO SCH ×2 (09:50→17:12)
[2021-03-19] MEDS: Lantus 1000 UNITS/10 ML VIAL SC SCH ×2 (09:51→21:54)
[2021-03-19] MEDS: Nitroglycerin 2% Ointment 1 INCH/1 GM Packet TOP SCH ×3 (09:52→21:50)
[2021-03-19] MEDS: Morphine 4 MG/ML VIAL SLOW IVP PRN ×2 (09:53→17:17)
[2021-03-19] MEDS: Ondansetron PF 4 MG/2 ML Vial IVP PRN (14:22)
[2021-03-19] MEDS: Acetaminophen/Codeine 30-300mg Tablet PO PRN (15:50)
[2021-03-19 21:04] LABS: Platelet Count 251 thou/uL (130-400)
[2021-03-19] MEDS: Atorvastatin Calcium 40 MG TAB PO SCH (21:47)
[2021-03-20] MEDS: HumaLOG 300 UNITS/3 ML VIAL SC PRN ×2 (05:24→13:12)
[2021-03-20] MEDS: Ondansetron PF 4 MG/2 ML Vial IVP PRN ×2 (07:11→13:14)
[2021-03-20] MEDS: metFORMIN 500 MG TAB PO SCH ×2 (08:11→16:59)
[2021-03-20] MEDS: Lisinopril 10 MG TAB PO SCH ×2 (08:11→20:01)
[2021-03-20] MEDS: Amlodipine 10 MG TAB PO SCH (08:13)
[2021-03-20] MEDS: Carvedilol 6.25 MG TAB PO SCH ×2 (08:13→20:00)
[2021-03-20] MEDS: Famotidine 20 MG TAB PO SCH ×2 (08:13→20:03)
[2021-03-20] MEDS: Aspirin 325 mg Enteric Coated Tablet PO SCH (08:13)
[2021-03-20] MEDS: Hydrochlorothiazide 25 MG TAB PO SCH (08:13)
[2021-03-20] MEDS: Spironolactone 25 MG TAB PO SCH (08:14)
[2021-03-20] MEDS: Nitroglycerin 2% Ointment 1 INCH/1 GM Packet TOP SCH ×3 (08:14→19:59)
[2021-03-20] MEDS: Lantus 1000 UNITS/10 ML VIAL SC SCH ×2 (08:15→20:37)
[2021-03-20] MEDS: Atorvastatin Calcium 40 MG TAB PO SCH (20:02)
[2021-03-20] MEDS: Meclizine HCl 25 MG TAB PO PRN (20:02)
[2021-03-21] MEDS ORDERED: Nitroglycerin 2% Ointment 1 INCH/1 GM Packet TOP SCH (09:00)
[2021-03-21] MEDS: Carvedilol 6.25 MG TAB PO SCH ×2 (09:02→20:39)
[2021-03-21] MEDS: Lisinopril 10 MG TAB PO SCH ×2 (09:03→20:40)
[2021-03-21] MEDS: Aspirin 325 mg Enteric Coated Tablet PO SCH (09:03)
[2021-03-21] MEDS: Amlodipine 10 MG TAB PO SCH (09:04)
[2021-03-21] MEDS: Spironolactone 25 MG TAB PO SCH (09:04)
[2021-03-21] MEDS: Lantus 1000 UNITS/10 ML VIAL SC SCH ×2 (09:05→20:34)
[2021-03-21] MEDS: Famotidine 20 MG TAB PO SCH ×2 (09:05→20:41)
[2021-03-21] MEDS: Hydrochlorothiazide 25 MG TAB PO SCH (09:05)
[2021-03-21] MEDS: Acetaminophen/Codeine 30-300mg Tablet PO PRN (16:44)
[2021-03-21] MEDS: Nitroglycerin 2% Ointment 1 INCH/1 GM Packet TOP SCH ×2 (16:46→20:33)
[2021-03-21 20:28] LABS: Hemoglobin 15.7 g/dL (14.0-18.0); Platelet Count 258 thou/uL (130-400)
[2021-03-21] MEDS: HumaLOG 300 UNITS/3 ML VIAL SC PRN (20:35)
[2021-03-21] MEDS: Meclizine HCl 25 MG TAB PO PRN (20:38)
[2021-03-21] MEDS: Atorvastatin Calcium 40 MG TAB PO SCH (20:38)
[2021-03-21] MEDS: ALPRAZolam 0.5 MG TAB PO PRN (20:39)
[2021-03-22 04:37] LABS: #Basophils 0.1 thou/uL (0.0-0.2); #Eosinphils 0.4 thou/uL (0.0-0.7); #Lymphocytes 3.4 thou/uL (1.20-3.40); #Monocytes 1.4 thou/uL (0.11-0.59); %Basophils 0.6 % (0.0-1.0); %Eosinophils 3.3 % (0.0-10.0); %Lymphocytes 27.9 % (21.0-51.0); %Monocytes 11.5 % (0.0-10.0); %Neutrophils 56.8 % (42.0-75.0); Hemoglobin 14.8 g/dL (14.0-18.0); Mean Corpuscular HGB CONC 32.2 g/dL (32.0-36.0); Mean Corpuscular Hemoglobin 27.8 pg (27.0-31.0); Mean Corpuscular Volume 86.3 fL (78.0-98.0); Platelet Count 271 thou/uL (130-400); RBC Distribution Width 13.4 % (11.5-14.5); Red Blood Cell (RBC) Count 5.31 mill/uL (4.70-6.10); White Blood Cell (WBC) Count 12.4 thou/uL (4.8-10.8)
[2021-03-22 04:53] LABS: SARS-CoV-2 NAA Rapid Test Not Detected (NotDetected)
[2021-03-22 04:56] LABS: Anion Gap 14 mmol/L (10-20); BUN (Urea Nitrogen) 41 mg/dL (8.4-25.7); Calc. Creatinine Clearance 59 mL/min (70-130); Carbon Dioxide 26 mmol/L (22-29); Chloride 103 mmol/L (98-107); Glucose 139 mg/dL (70-105); Potassium 3.7 mmol/L (3.5-5.1); Sodium 139 mmol/L (136-145)
[2021-03-22] MEDS: Lisinopril 10 MG TAB PO SCH (05:15)
[2021-03-22] MEDS: Carvedilol 6.25 MG TAB PO SCH (05:16)
[2021-03-22] MEDS ORDERED: EPINEPHrine 1 MG/ML AMP ONE (06:16)
[2021-03-22] MEDS ORDERED: Albumin 5% 500 ML ONE (06:16)
[2021-03-22] MEDS ORDERED: Bupivacaine PF 0.5% 30 ML VIAL ONE (06:16)
[2021-03-22] MEDS ORDERED: Dexamethasone 4 mg/ml Vial ONE (06:16)
[2021-03-22] MEDS ORDERED: Sodium Chloride 0.9% 10 ML ONE (06:25)
[2021-03-22] MEDS ORDERED: Heparin 10,000 UNITS/1 ML VIAL 30,000 UNITS in Sodium Chloride 0.9% 1,000 ML FS SCH (07:00)
[2021-03-22] MEDS ORDERED: Papaverine 60 MG/2 ML VIAL ONE (07:28)
[2021-03-22] MEDS ORDERED: Magnesium Sulfate 1 GM/2 ML VIAL ONE (07:28)
[2021-03-22] MEDS ORDERED: Mannitol 12.5 GM/50 ML ONE (07:28)
[2021-03-22] MEDS ORDERED: Heparin 30,000 units/30 ml VIAL ONE (07:28)
[2021-03-22] MEDS ORDERED: PHENYLEPHRINE-NS 100 MCG/ML 10 ML SYRINGE ONE ×2 (07:28→08:47)
[2021-03-22] MEDS ORDERED: ePHEDrine 50 MG/ML VIAL ONE (07:28)
[2021-03-22] MEDS ORDERED: Sodium Bicarb 50 MEQ/50 ML Abboject 8.4% SYRINGE ONE (07:28)
[2021-03-22] MEDS ORDERED: Lidocaine 2% PF 100 mg/5 ml Syringe ONE (07:28)
[2021-03-22] MEDS ORDERED: Thrombin 5000 UNITS/5 ML VIAL ONE (07:28)
[2021-03-22] MEDS ORDERED: Heparin 5,000 UNITS/ML VIAL ONE (07:28)
[2021-03-22] MEDS ORDERED: Calcium Chloride 1 GM/10 ML Abboject SYRINGE ONE (07:28)
[2021-03-22] MEDS ORDERED: Protamine Sulfate 250 MG/25 ML VIAL ONE (07:28)
[2021-03-22] MEDS ORDERED: Potassium Chloride 60 MEQ/30 ML VIAL ONE (07:28)
[2021-03-22] MEDS ORDERED: Vecuronium 10 MG VIAL ONE (07:28)
[2021-03-22] MEDS ORDERED: Cardioplegic Soln 1,000 ML BAG ONE (07:28)
[2021-03-22] MEDS ORDERED: PROPOFOL 200 MG/20 ML VIAL ONE (07:28)
[2021-03-22] MEDS ORDERED: Aminocaproic Acid 5 GM/20 ML VIAL ONE (07:28)
[2021-03-22] MEDS ORDERED: Rocuronium Bromide 10 MG/ML (10ML VIAL) ONE (07:28)
[2021-03-22] MEDS ORDERED: Midazolam HCl 5 mg/5 ml Vial ONE (07:33)
[2021-03-22] MEDS ORDERED: Fentanyl 250 MCG/5 ML VIAL ONE ×2 (07:34)
[2021-03-22] MEDS ORDERED: Milrinone 10 MG/10 ML VIAL ONE (09:45)
[2021-03-22] MEDS ORDERED: Bisacodyl 10 MG SUPP PR PRN (11:29)
[2021-03-22] MEDS ORDERED: Hetastarch 6% 500 ML 500 ML IVPB PRN (11:29)
[2021-03-22] MEDS ORDERED: Fentanyl 100 MCG/2 ML VIAL SLOW IVP PRN (11:29)
[2021-03-22] MEDS ORDERED: D5 1/2 NS w/20 mEq KCL 1,000 ML IV SCH (11:29)
[2021-03-22] MEDS ORDERED: Nitroglycerin 50 MG/250 ML BOT 250 ML IVPB PRN (11:29)
[2021-03-22] MEDS ORDERED: Bisacodyl 5 MG TAB PO PRN (11:29)
[2021-03-22] MEDS ORDERED: Magnesium 2 GM/50 ML 2 GM in Premix Bag 1 BAG IVPB SCH (11:29)
[2021-03-22] MEDS ORDERED: Norepinephrine 8 MG/0.9% NS 250 ML IVPB PRN (11:29)
[2021-03-22] MEDS ORDERED: Morphine 2 MG/ML VIAL SLOW IVP PRN (11:29)
[2021-03-22] MEDS ORDERED: Post-Op Insulin Drip Protocol IVPB ONE (11:29)
[2021-03-22] MEDS ORDERED: niCARdipine 25 MG in Sodium Chloride 0.9% 250 ML 250 ML IVPB PRN (11:29)
[2021-03-22] MEDS ORDERED: Guaifenesin DM 100-10/5 ML UDCUP PO PRN (11:29)
[2021-03-22] MEDS ORDERED: Ondansetron PF 4 MG/2 ML Vial IVP PRN (11:29)
[2021-03-22] MEDS ORDERED: Promethazine HCl 25 MG/ML VIAL IM PRN (11:29)
[2021-03-22] MEDS ORDERED: Mag-Al 1200 mg/1200 mg/30 ML UDCUP PO PRN (11:29)
[2021-03-22] MEDS ORDERED: Potassium Chloride 20 MEQ/100 ML PREMIX BAG IVPB PRN (11:29)
[2021-03-22 11:44] LABS: Hemoglobin 13.2 g/dL (14.0-18.0)
[2021-03-22] MEDS ORDERED: HUMULIN R 100 UNITS in Sodium Chloride 0.9% 100 ML IVPB SCH (11:45)
[2021-03-22] MEDS ORDERED: Dextrose 5% in Water 1,000 ML IV PRN (11:45)
[2021-03-22] MEDS ORDERED: Dextrose 50% Abboject 50 ML SYRINGE SLOW IVP PRN (11:45)
[2021-03-22 11:47] LABS: Actual Bicarbonate (HCO3a) 22.3 mEq/L (22-28); Base Excess (BEa) -3.7 mEq/L (-2.0 to +3.0); CO2 Tension 43.9 mmHg (35.0-45.0); Calcium, Ionized (arterial) 1.09 mmol/L (1.12-1.30); Carboxyhemoglobin (COHb) 0.7 gm% (0.0-3.0); Hemoglobin (Hb) 13.5 g/dL (14.0-18.0); Potassium - ABG Lab 3.83 mmol/L (3.70-5.30); pH, Arterial 7.32 (7.35-7.45)
[2021-03-22 11:50] LABS: ALV-art Gradient 243.325 mmHg (0-20); O2 Tension (PaO2), arterial 58.3 mmHg (80.0-100.0); Puncture Site Arterial Line
[2021-03-22 11:59] LABS: Hemoglobin 13.3 g/dL (14.0-18.0); Mean Corpuscular HGB CONC 32.6 g/dL (32.0-36.0); Mean Corpuscular Hemoglobin 28.1 pg (27.0-31.0); Mean Corpuscular Volume 86.2 fL (78.0-98.0); Mean Platelet Volume 9.7 fL (7.4-10.4); Platelet Count 222 thou/uL (130-400); RBC Distribution Width 13.3 % (11.5-14.5); Red Blood Cell (RBC) Count 4.73 mill/uL (4.70-6.10); White Blood Cell (WBC) Count 22.9 thou/uL (4.8-10.8)
[2021-03-22] MEDS ORDERED: Ketorolac Tromethamine 30 MG/ML VIAL IVP SCH (12:00)
[2021-03-22] MEDS: Spironolactone 25 MG TAB PO SCH (12:15)
[2021-03-22 12:20] LABS: Band 11 % (5-11); INR-International Normal Ratio 1.3; Lymphocytes 8 % (21-51); MDiff Complete? YES; Monocytes 8 % (0-10); Neutrophil 72 % (42-75); Platelet Morphology Comment Appears Adequate; Prothrombin Time 16.2 sec (12.0-14.7); RBC Morphology Normal; Reactive Lymphocytes 1 % (0-10)
[2021-03-22 12:21] LABS: Anion Gap 12 mmol/L (10-20); BUN (Urea Nitrogen) 31 mg/dL (8.4-25.7); Calc. Creatinine Clearance 77 mL/min (70-130); Calcium 7.8 mg/dL (7.8-10.44); Carbon Dioxide 22 mmol/L (22-29); Chloride 109 mmol/L (98-107); Glucose 150 mg/dL (70-105); PTT 33.3 sec (22.9-36.1); Potassium 4.2 mmol/L (3.5-5.1); Sodium 139 mmol/L (136-145)
[2021-03-22] MEDS: Fentanyl 100 MCG/2 ML VIAL SLOW IVP PRN ×3 (12:55→21:37)
[2021-03-22] MEDS: CEFAZOLIN 2 GM in Premix Bag 1 BAG IVPB SCH ×2 (13:57→21:29)
[2021-03-22 16:45] LABS: Potassium 4.9 mmol/L (3.5-5.1)
[2021-03-22] MEDS: Famotidine/PF 20 mg/2ml Vial SLOW IVP SCH (21:01)
[2021-03-23] MEDS: Fentanyl 100 MCG/2 ML VIAL SLOW IVP PRN ×7 (01:05→21:42)
[2021-03-23] MEDS: niCARdipine 50 MG in Sodium Chloride 0.9% 250 ML 230 ML IVPB PRN ×3 (01:51→10:26)
[2021-03-23 04:42] LABS: #Lymphocytes 1.6 thou/uL (1.20-3.40); #Monocytes 3.4 thou/uL (0.11-0.59); #Neutrophils 21.1 thou/uL (1.40-6.50); %Basophils 0.2 % (0.0-1.0); %Eosinophils 0.1 % (0.0-10.0); %Lymphocytes 6.1 % (21.0-51.0); %Monocytes 13.1 % (0.0-10.0); %Neutrophils 80.6 % (42.0-75.0); Hemoglobin 14.2 g/dL (14.0-18.0); Mean Corpuscular HGB CONC 31.5 g/dL (32.0-36.0); Mean Corpuscular Hemoglobin 27.5 pg (27.0-31.0); Mean Corpuscular Volume 87.3 fL (78.0-98.0); Mean Platelet Volume 9.9 fL (7.4-10.4); Platelet Count 269 thou/uL (130-400); RBC Distribution Width 13.4 % (11.5-14.5); Red Blood Cell (RBC) Count 5.17 mill/uL (4.70-6.10); White Blood Cell (WBC) Count 26.2 thou/uL (4.8-10.8)
[2021-03-23 04:57] LABS: Anion Gap 12 mmol/L (10-20); BUN (Urea Nitrogen) 21 mg/dL (8.4-25.7); Calc. Creatinine Clearance 96 mL/min (70-130); Calcium 8.9 mg/dL (7.8-10.44); Carbon Dioxide 24 mmol/L (22-29); Chloride 107 mmol/L (98-107); Glucose 117 mg/dL (70-105); Potassium 4.4 mmol/L (3.5-5.1); Sodium 139 mmol/L (136-145)
[2021-03-23] MEDS: CEFAZOLIN 2 GM in Premix Bag 1 BAG IVPB SCH (06:45)
[2021-03-23] MEDS: Aspirin 325 MG TAB PO SCH (07:32)
[2021-03-23] MEDS: Famotidine/PF 20 mg/2ml Vial SLOW IVP SCH ×2 (07:32→21:41)
[2021-03-23] MEDS: Magnesium 2 GM/50 ML 2 GM in Premix Bag 1 BAG IVPB SCH (07:32)
[2021-03-23] MEDS ORDERED: ALPRAZolam 0.5 MG TAB PO PRN (07:50)
[2021-03-23] MEDS: Amlodipine 10 MG TAB PO SCH (08:26)
[2021-03-23] MEDS: Hydrochlorothiazide 25 MG TAB PO SCH (08:27)
[2021-03-23] MEDS: Carvedilol 25 MG TAB PO SCH ×2 (08:27→16:54)
[2021-03-23] MEDS: Lisinopril 20 MG TAB PO SCH ×2 (08:27→21:41)
[2021-03-23] MEDS: traMADol HCl 50 MG TAB PO PRN ×2 (08:28→15:05)
[2021-03-23] MEDS: Insulin Regular 300 UNITS/3 ML VIAL SC PRN ×2 (16:37→21:43)
[2021-03-23] MEDS ORDERED: Mag-Al 1200 mg/1200 mg/30 ML UDCUP PO PRN (20:30)
[2021-03-23] MEDS ORDERED: Bisacodyl 10 MG SUPP PR PRN (20:30)
[2021-03-23] MEDS ORDERED: diphenhydrAMINE 25 MG CAP PO PRN (20:30)
[2021-03-23] MEDS ORDERED: Guaifenesin DM 100-10/5 ML UDCUP PO PRN (20:30)
[2021-03-23] MEDS ORDERED: Zolpidem Tartrate 5 MG TAB PO PRN (20:30)
[2021-03-23] MEDS ORDERED: Nitroglycerin 0.4 MG TAB (25 Tab Bottle) SL PRN (20:30)
[2021-03-23] MEDS ORDERED: Mineral Oil ENEMA PR PRN (20:30)
[2021-03-23] MEDS: Atorvastatin Calcium 40 MG TAB PO SCH (21:41)
[2021-03-24] MEDS: traMADol HCl 50 MG TAB PO PRN ×3 (00:54→21:04)
[2021-03-24] MEDS: hydrALAZINE 20 MG/ML VIAL SLOW IVP PRN (00:58)
[2021-03-24] MEDS: Fentanyl 100 MCG/2 ML VIAL SLOW IVP PRN ×2 (05:25→08:27)
[2021-03-24] MEDS: Insulin Regular 300 UNITS/3 ML VIAL SC PRN ×3 (05:44→16:21)
[2021-03-24] MEDS: Aspirin 325 MG TAB PO SCH (08:26)
[2021-03-24] MEDS: Magnesium 2 GM/50 ML 2 GM in Premix Bag 1 BAG IVPB SCH (08:27)
[2021-03-24] MEDS: Lisinopril 20 MG TAB PO SCH (08:33)
[2021-03-24] MEDS: Amlodipine 10 MG TAB PO SCH (08:33)
[2021-03-24] MEDS: Hydrochlorothiazide 25 MG TAB PO SCH (08:34)
[2021-03-24] MEDS ORDERED: Carvedilol 25 MG TAB PO SCH ×2 (08:45→09:00)
[2021-03-24] MEDS: Carvedilol 25 MG TAB PO SCH ×2 (10:08→16:20)
[2021-03-24] MEDS ORDERED: Meclizine HCl 25 MG TAB PO PRN (15:57)
[2021-03-24] MEDS: Atorvastatin Calcium 40 MG TAB PO SCH (21:03)
[2021-03-24] MEDS: Lisinopril 5 MG TAB PO SCH (21:03)
[2021-03-24] MEDS: Bisacodyl 5 MG TAB PO PRN (21:09)
[2021-03-25] MEDS: Milk Of Magnesia 30 ML UDCUP PO PRN ×2 (01:08→16:24)
[2021-03-25] MEDS: Acetaminophen 325 MG TAB PO PRN ×3 (01:08→20:57)
[2021-03-25] MEDS: hydrALAZINE 20 MG/ML VIAL SLOW IVP PRN (01:09)
[2021-03-25 04:30] VITALS: BMI 40.2
[2021-03-25 04:34] LABS: #Basophils 0.1 thou/uL (0.0-0.2); #Eosinphils 0.1 thou/uL (0.0-0.7); #Lymphocytes 1.8 thou/uL (1.20-3.40); #Monocytes 2.2 thou/uL (0.11-0.59); #Neutrophils 13.6 thou/uL (1.40-6.50); %Basophils 0.3 % (0.0-1.0); %Eosinophils 0.8 % (0.0-10.0); %Lymphocytes 10.2 % (21.0-51.0); %Monocytes 12.2 % (0.0-10.0); %Neutrophils 76.5 % (42.0-75.0); Hemoglobin 13.2 g/dL (14.0-18.0); Mean Corpuscular HGB CONC 33.2 g/dL (32.0-36.0); Mean Corpuscular Hemoglobin 28.8 pg (27.0-31.0); Mean Corpuscular Volume 86.9 fL (78.0-98.0); Mean Platelet Volume 9.9 fL (7.4-10.4); Platelet Count 218 thou/uL (130-400); RBC Distribution Width 13.4 % (11.5-14.5); Red Blood Cell (RBC) Count 4.58 mill/uL (4.70-6.10); White Blood Cell (WBC) Count 17.8 thou/uL (4.8-10.8)
[2021-03-25 04:55] LABS: Anion Gap 13 mmol/L (10-20); BUN (Urea Nitrogen) 22 mg/dL (8.4-25.7); Calc. Creatinine Clearance 92 mL/min (70-130); Calcium 9.2 mg/dL (7.8-10.44); Carbon Dioxide 25 mmol/L (22-29); Chloride 98 mmol/L (98-107); Glucose 254 mg/dL (70-105); Magnesium 2.1 mg/dL (1.6-2.6); Potassium 3.6 mmol/L (3.5-5.1); Sodium 132 mmol/L (136-145)
[2021-03-25] MEDS: Insulin Regular 300 UNITS/3 ML VIAL SC PRN ×3 (05:38→16:19)
[2021-03-25] MEDS: Amlodipine 10 MG TAB PO SCH (08:15)
[2021-03-25] MEDS: glipiZIDE 10 MG TAB PO SCH ×2 (08:15→16:16)
[2021-03-25] MEDS: Carvedilol 25 MG TAB PO SCH ×2 (08:15→16:16)
[2021-03-25] MEDS: Aspirin 325 MG TAB PO SCH (08:15)
[2021-03-25] MEDS: Hydrochlorothiazide 25 MG TAB PO SCH (08:16)
[2021-03-25] MEDS: Lisinopril 5 MG TAB PO SCH ×2 (08:17→20:44)
[2021-03-25] MEDS ORDERED: Meclizine HCl 25 MG TAB PO SCH (11:00)
[2021-03-25] MEDS: traMADol HCl 50 MG TAB PO PRN ×2 (16:24→22:46)
[2021-03-25] MEDS: Bisacodyl 5 MG TAB PO PRN (16:24)
[2021-03-25] MEDS: Alogliptin 25 MG TAB PO SCH (20:44)
[2021-03-25] MEDS: Atorvastatin Calcium 40 MG TAB PO SCH (20:44)
[2021-03-25] MEDS: Meclizine HCl 25 MG TAB PO SCH (20:45)
[2021-03-26 04:13] LABS: #Basophils 0.1 thou/uL (0.0-0.2); #Eosinphils 0.3 thou/uL (0.0-0.7); #Lymphocytes 2.9 thou/uL (1.20-3.40); #Monocytes 1.6 thou/uL (0.11-0.59); #Neutrophils 10.3 thou/uL (1.40-6.50); %Basophils 0.4 % (0.0-1.0); %Eosinophils 1.8 % (0.0-10.0); %Lymphocytes 19.3 % (21.0-51.0); %Monocytes 10.8 % (0.0-10.0); %Neutrophils 67.7 % (42.0-75.0); Mean Corpuscular HGB CONC 33.5 g/dL (32.0-36.0); Mean Corpuscular Hemoglobin 29.2 pg (27.0-31.0); Mean Corpuscular Volume 87.3 fL (78.0-98.0); Mean Platelet Volume 9.7 fL (7.4-10.4); Platelet Count 250 thou/uL (130-400); RBC Distribution Width 13.3 % (11.5-14.5); White Blood Cell (WBC) Count 15.2 thou/uL (4.8-10.8)
[2021-03-26 04:35] LABS: Anion Gap 13 mmol/L (10-20); BUN (Urea Nitrogen) 32 mg/dL (8.4-25.7); Calc. Creatinine Clearance 78 mL/min (70-130); Calcium 8.8 mg/dL (7.8-10.44); Carbon Dioxide 26 mmol/L (22-29); Chloride 99 mmol/L (98-107); Glucose 208 mg/dL (70-105); Potassium 3.5 mmol/L (3.5-5.1); Sodium 134 mmol/L (136-145)
[2021-03-26] MEDS: Meclizine HCl 25 MG TAB PO SCH ×4 (06:22→21:18)
[2021-03-26] MEDS: Insulin Regular 300 UNITS/3 ML VIAL SC PRN ×4 (06:23→21:25)
[2021-03-26] MEDS: traMADol HCl 50 MG TAB PO PRN ×2 (09:10→21:22)
[2021-03-26] MEDS: Lisinopril 5 MG TAB PO SCH ×2 (09:11→21:17)
[2021-03-26] MEDS: Hydrochlorothiazide 25 MG TAB PO SCH (09:11)
[2021-03-26] MEDS: Aspirin 325 MG TAB PO SCH (09:11)
[2021-03-26] MEDS: Amlodipine 10 MG TAB PO SCH (09:12)
[2021-03-26] MEDS: Carvedilol 25 MG TAB PO SCH ×2 (09:12→16:09)
[2021-03-26] MEDS: glipiZIDE 10 MG TAB PO SCH ×2 (09:13→16:09)
[2021-03-26] MEDS: Methocarbamol 500 MG TAB PO PRN ×2 (11:08→16:09)
[2021-03-26] MEDS: Bisacodyl 5 MG TAB PO PRN (11:08)
[2021-03-26] MEDS: Acetaminophen 325 MG TAB PO PRN (17:16)
[2021-03-26] MEDS: Tamsulosin HCl 0.4 MG CAP PO SCH (21:17)
[2021-03-26] MEDS: Atorvastatin Calcium 40 MG TAB PO SCH (21:17)
[2021-03-26] MEDS: Alogliptin 6.25 MG TAB PO SCH (21:22)
[2021-03-26] MEDS: Alogliptin 25 MG TAB PO SCH (21:23)
[2021-03-27] MEDS: Insulin Regular 300 UNITS/3 ML VIAL SC PRN ×4 (06:07→21:11)
[2021-03-27] MEDS: Meclizine HCl 25 MG TAB PO SCH ×3 (06:07→21:08)
[2021-03-27] MEDS: traMADol HCl 50 MG TAB PO PRN ×3 (06:38→21:04)
[2021-03-27] MEDS: Carvedilol 25 MG TAB PO SCH ×2 (07:59→16:40)
[2021-03-27] MEDS: glipiZIDE 10 MG TAB PO SCH ×2 (07:59→16:40)
[2021-03-27] MEDS: Aspirin 325 MG TAB PO SCH (08:00)
[2021-03-27] MEDS: Hydrochlorothiazide 25 MG TAB PO SCH (08:00)
[2021-03-27] MEDS: Lisinopril 5 MG TAB PO SCH ×2 (08:00→21:02)
[2021-03-27] MEDS: Amlodipine 10 MG TAB PO SCH (08:00)
[2021-03-27] MEDS: Acetaminophen 325 MG TAB PO PRN (11:05)
[2021-03-27] MEDS: Bisacodyl 5 MG TAB PO PRN (13:36)
[2021-03-27] MEDS ORDERED: Magnesium Citrate 300 ML BOT PO SCH (20:15)
[2021-03-27] MEDS: Tamsulosin HCl 0.4 MG CAP PO SCH (20:56)
[2021-03-27] MEDS: Atorvastatin Calcium 40 MG TAB PO SCH (20:56)
[2021-03-27] MEDS: Alogliptin 6.25 MG TAB PO SCH (22:04)
[2021-03-28] MEDS: Insulin Regular 300 UNITS/3 ML VIAL SC PRN ×2 (05:40→11:10)
[2021-03-28] MEDS: Meclizine HCl 25 MG TAB PO SCH ×2 (05:40→13:09)
[2021-03-28] MEDS: traMADol HCl 50 MG TAB PO PRN ×2 (05:45→12:21)
[2021-03-28] MEDS: Bisacodyl 5 MG TAB PO PRN (05:46)
[2021-03-28] MEDS: Aspirin 325 MG TAB PO SCH (08:04)
[2021-03-28] MEDS: Amlodipine 10 MG TAB PO SCH (08:04)
[2021-03-28] MEDS: Carvedilol 25 MG TAB PO SCH ×2 (08:04→13:04)
[2021-03-28] MEDS: glipiZIDE 10 MG TAB PO SCH (08:04)
[2021-03-28] MEDS: Lisinopril 5 MG TAB PO SCH (08:05)
[2021-03-28] MEDS: Hydrochlorothiazide 25 MG TAB PO SCH (08:05)
[2021-03-28] MEDS: Acetaminophen 325 MG TAB PO PRN (11:10)
[2021-03-28 11:46] VITALS: BP 105/61; TEMP 98.4
[2021-03-30 14:23] LABS: Actual Bicarbonate (HCO3a) 22.5 mEq/L (22-28); Analyzer IN Cardio OR; Base Excess (BEa) -2.8 mEq/L (-2.0 to +3.0); CO2 Tension 41.1 mmHg (35.0-45.0); Calcium, Ionized (arterial) 1.08 mmol/L (1.12-1.30); Carboxyhemoglobin (COHb) 0.6 gm% (0.0-3.0); Hemoglobin (Hb) 13.1 g/dL (14.0-18.0); O2 Tension (PaO2), arterial 62.1 mmHg (80.0-100.0); Potassium - ABG Lab 3.86 mmol/L (3.70-5.30); pH, Arterial 7.36 (7.35-7.45)
[2021-03-30 14:23] LABS: Actual Bicarbonate (HCO3a) 24.2 mEq/L (22-28); Analyzer IN Cardio OR; Base Excess (BEa) -0.3 mEq/L (-2.0 to +3.0); CO2 Tension 38.8 mmHg (35.0-45.0); Carboxyhemoglobin (COHb) 0.2 gm% (0.0-3.0); Hemoglobin (Hb) 10.4 g/dL (14.0-18.0); O2 Tension (PaO2), arterial 364.3 mmHg (80.0-100.0); Potassium - ABG Lab 4.22 mmol/L (3.70-5.30); pH, Arterial 7.41 (7.35-7.45)
[2021-03-30 14:24] LABS: Actual Bicarbonate (HCO3a) 23.7 mEq/L (22-28); Analyzer IN Cardio OR; Base Excess (BEa) -0.6 mEq/L (-2.0 to +3.0); CO2 Tension 37.8 mmHg (35.0-45.0); Calcium, Ionized (arterial) 1.01 mmol/L (1.12-1.30); Carboxyhemoglobin (COHb) 0.4 gm% (0.0-3.0); Hemoglobin (Hb) 11.4 g/dL (14.0-18.0); O2 Tension (PaO2), arterial 333.4 mmHg (80.0-100.0); pH, Arterial 7.42 (7.35-7.45)
[2021-03-30 14:24] LABS: Actual Bicarbonate (HCO3v) 24 mEq/L (22-28); Analyzer IN Cardio OR; Base Excess -1.4 mEq/L (-2.0 to +3.0); Calcium, Ionized (venous) 1.04 mmol/L (1.16-1.32); Chloride (VBG) 105 mmol/L (98-106); Hemoglobin (Hb) 11.4 g/dL (13.1-17.2); Potassium (VBG) 4.41 mmol/L (3.70-5.30); Sodium 134.9 mmol/L (133-146); pH (venous) 7.37 (7.32-7.43)
[2021-03-30 14:25] LABS: Analyzer IN Cardio OR; Base Excess (BEa) -1.3 mEq/L (-2.0 to +3.0); CO2 Tension 42.2 mmHg (35.0-45.0); Carboxyhemoglobin (COHb) 1.3 gm% (0.0-3.0); O2 Tension (PaO2), arterial 177.2 mmHg (80.0-100.0); Potassium - ABG Lab 3.57 mmol/L (3.70-5.30); pH, Arterial 7.37 (7.35-7.45)
[2021-03-30 14:25] LABS: Actual Bicarbonate (HCO3a) 21.4 mEq/L (22-28); Analyzer IN Cardio OR; Base Excess (BEa) -3.3 mEq/L (-2.0 to +3.0); CO2 Tension 37.6 mmHg (35.0-45.0); Calcium, Ionized (arterial) 1.06 mmol/L (1.12-1.30); Carboxyhemoglobin (COHb) 0.7 gm% (0.0-3.0); Hemoglobin (Hb) 13.9 g/dL (14.0-18.0); O2 Tension (PaO2), arterial 210.7 mmHg (80.0-100.0); Potassium - ABG Lab 3.49 mmol/L (3.70-5.30); pH, Arterial 7.37 (7.35-7.45)
[2021-03-30 14:33] LABS: Puncture Site Arterial Line
[2021-03-30 14:34] LABS: Puncture Site Arterial Line
[2021-03-30 14:35] LABS: Puncture Site Arterial Line
[2021-03-30 14:36] LABS: Puncture Site Arterial Line
[2021-03-30 14:37] LABS: Puncture Site Arterial Line
== END 2021-03-28 14:41 | disposition home or self-care (01) | DRG 234 ==
LOC: ERS 15:53 → ERHOLD 20:06 → CCU 03-16 03:40 → 2NO 03-19 00:48 → CCU 03-22 05:50 → 2NO 03-23 20:16
PROVIDERS: ADMIT Internal Medicine; ATTEND Family Medicine
PROC: 4A023N7 Measurement of Cardiac Sampling and Pressure, Left Heart, Percutaneous Approach (ICD-10-PCS; 2021-03-15)
PROC: B2111ZZ Fluoroscopy of Multiple Coronary Arteries using Low Osmolar Contrast (ICD-10-PCS; 2021-03-15)
PROC: 02100Z9 Bypass Coronary Artery, One Artery from Left Internal Mammary, Open Approach (ICD-10-PCS; principal; 2021-03-23)
PROC: 021109W Bypass Coronary Artery, Two Arteries from Aorta with Autologous Venous Tissue, Open Approach (ICD-10-PCS; 2021-03-23)
PROC: 06BQ4ZZ Excision of Left Saphenous Vein, Percutaneous Endoscopic Approach (ICD-10-PCS; 2021-03-23)
PROC: 5A1221Z Performance of Cardiac Output, Continuous (ICD-10-PCS; 2021-03-23)
DX: I21.4 Non-ST elevation (NSTEMI) myocardial infarction (principal); T82.855A Stenosis of coronary artery stent, initial encounter; I25.110 Atherosclerotic heart disease of native coronary artery with unstable angina pectoris; E78.00 Pure hypercholesterolemia, unspecified; E11.22 Type 2 diabetes mellitus with diabetic chronic kidney disease; N18.30 Chronic kidney disease, stage 3 unspecified; I16.0 Hypertensive urgency; Y83.8 Other surgical procedures as the cause of abnormal reaction of the patient, or of later complication, without mention of misadventure at the time of the procedure; E11.65 Type 2 diabetes mellitus with hyperglycemia; E66.01 Morbid (severe) obesity due to excess calories; F40.240 Claustrophobia; E11.21 Type 2 diabetes mellitus with diabetic nephropathy; H81.10 Benign paroxysmal vertigo, unspecified ear; Z20.822 Contact with and (suspected) exposure to COVID-19; M10.9 Gout, unspecified; I12.9 Hypertensive chronic kidney disease with stage 1 through stage 4 chronic kidney disease, or unspecified chronic kidney disease; I25.2 Old myocardial infarction; Z86.73 Personal history of transient ischemic attack (TIA), and cerebral infarction without residual deficits; Z90.49 Acquired absence of other specified parts of digestive tract; Z95.5 Presence of coronary angioplasty implant and graft; Z88.8 Allergy status to other drugs, medicaments and biological substances; Z79.899 Other long term (current) drug therapy; Z68.38 Body mass index [BMI] 38.0-38.9, adult
CPT/HCPCS: 0240U; 36415; 36416; 36430; 70551; 71045; 80048; 80061; 82553; 82805; 83036; 83735; 84484; 85014; 85018; 85025; 85049; 85610; 85730; 86850; 86900; 86901; 93005; 93010; 93306; 93458; 93798; 94002; 94660; 94760; 96365; 96366; 96368; 96372; 96375; 96376; J0153; J0171; J0360; J0690; J1100; J1642; J1644; J1650; J1815; J1885; J2001; J2150; J2250; J2260; J2270; J2405; J2440; J2704; J2720; J3010; J3370; J3475; J3480; J3490; J7050; P9045; S0017; S0020; S0028; U0002; U0005

== ENCOUNTER 2021-09-29 09:51 | Outpatient (CLI) | payer OTHER | END 2021-09-29 09:52 | disposition home or self-care (01) | LOC: DTY/OP 09:51 | PROVIDERS: ATTEND Specialist | DX: Z01.818 Encounter for other preprocedural examination (principal); E66.01 Morbid (severe) obesity due to excess calories | CPT/HCPCS: 97802 ==

== ENCOUNTER 2021-12-02 13:02 | Outpatient (CLI) | payer OTHER | END 2021-12-02 13:03 | disposition home or self-care (01) | LOC: DTY/OP 13:02 | PROVIDERS: ATTEND Specialist | DX: Z01.818 Encounter for other preprocedural examination (principal); E66.01 Morbid (severe) obesity due to excess calories | CPT/HCPCS: 97802 ==

== ENCOUNTER 2021-12-27 12:01 | Outpatient (CLI) | payer OTHER | END 2021-12-27 12:02 | disposition home or self-care (01) | LOC: BICRAD 12:01 | PROVIDERS: ATTEND Urology | DX: N20.0 Calculus of kidney (principal); N28.89 Other specified disorders of kidney and ureter | CPT/HCPCS: 74018 ==

== ENCOUNTER 2021-12-31 13:04 | Outpatient (CLI) | payer OTHER | END 2021-12-31 13:05 | disposition home or self-care (01) | LOC: DTY/OP 13:04 | PROVIDERS: ATTEND Specialist | DX: Z01.818 Encounter for other preprocedural examination (principal); E66.01 Morbid (severe) obesity due to excess calories | CPT/HCPCS: 97802 ==

== ENCOUNTER 2022-01-19 11:50 | Outpatient (CLI) | payer OTHER ==
[2022-01-19 12:50] LABS: Hemoglobin 13.4 g/dL (13.5-17.5); Mean Corpuscular HGB CONC 29.1 g/dL (32.0-36.0); Mean Corpuscular Hemoglobin 19.4 pg (27.0-33.0); Mean Corpuscular Volume 66.7 fl (81.2-95.1); Mean Platelet Volume 10.2 fl (7.4-10.4); Platelet Count 380 10x3/uL (150-450); RBC Distribution Width 21.2 % (11.5-14.5); White Blood Cell (WBC) Count 12.2 10x3/uL (3.5-10.5)
[2022-01-19 13:05] LABS: PTT 26.7 sec (22.0-33.0); Prothrombin Time 10.9 sec (9.5-12.1)
[2022-01-19 13:09] LABS: Anion Gap 15 mmol/L (10-20); BUN (Urea Nitrogen) 23 mg/dL (8.4-25.7); Calc. Creatinine Clearance 0 mL/min (70-130); Calcium 9.6 mg/dL (7.8-10.44); Carbon Dioxide 27 mmol/L (22-29); Chloride 101 mmol/L (98-107); Glucose 211 mg/dL (70-105); Potassium 4.9 mmol/L (3.5-5.1); Sodium 138 mmol/L (136-145)
[2022-01-19 13:19] LABS: Bilirubin Neg (Negative); Blood, Urine Negative (Negative); Glucose, Urine (Dipstick) Normal (Negative); Ketone, Urine Negative (Negative); Leukocyte Negative (Negative); Nitrite Negative (Negative); Protein, Urine (Dipstick) 100 mg/dl (Neg-Trace); Urobilinogen Normal mg/dL (Less than 2)
[2022-01-19 13:29] LABS: Clarity Clear (Clear)
[2022-01-19 13:36] LABS: Bacteria/HPF None Seen HPF (None Seen); RBC/HPF 0-3 HPF (0-3); Squamous Epithelial None Seen HPF (0-3); WBC/HPF None Seen HPF (0-3)
== END 2022-01-19 11:51 | disposition home or self-care (01) ==
LOC: LABBT 11:50
PROVIDERS: ATTEND Urology
DX: Z01.818 Encounter for other preprocedural examination (principal); N20.0 Calculus of kidney; N40.1 Benign prostatic hyperplasia with lower urinary tract symptoms; I25.10 Atherosclerotic heart disease of native coronary artery without angina pectoris; E11.22 Type 2 diabetes mellitus with diabetic chronic kidney disease; I63.89 Other cerebral infarction; F40.240 Claustrophobia; M10.9 Gout, unspecified; N52.9 Male erectile dysfunction, unspecified; R80.9 Proteinuria, unspecified; R81 Glycosuria; R97.20 Elevated prostate specific antigen [PSA]; R35.1 Nocturia; Z20.822 Contact with and (suspected) exposure to COVID-19
CPT/HCPCS: 80048; 81001; 85027; 85610; 85730; 87086; 93005; 93010; U0003; U0005

== ENCOUNTER 2022-01-24 07:20 | Day surgery (SDC) | payer OTHER ==
[2022-01-19 10:41] VITALS: BMI 41.1
[2022-01-24] MEDS ORDERED: Lidocaine 1% MPF 2 ML VIAL ONE (08:49)
[2022-01-24] MEDS ORDERED: Levofloxacin 500 mg/D5W 100 ml Premix Bag ONE (08:49)
[2022-01-24] MEDS ORDERED: Iopamidol 45 ML ONE (10:36)
[2022-01-24] MEDS ORDERED: fentaNYL Citrate/PF 100 MCG/2 ML SYRINGE ONE (10:49)
[2022-01-24] MEDS ORDERED: PROPOFOL 200 MG/20 ML VIAL ONE (10:56)
[2022-01-24] MEDS ORDERED: Ondansetron PF 4 MG/2 ML Vial ONE (10:56)
[2022-01-24] MEDS ORDERED: Lidocaine 1% PF 5 ML VIAL ONE (10:56)
[2022-01-24] MEDS ORDERED: Glycopyrrolate 0.2 MG/ML 5 ML SYRINGE ONE (10:56)
[2022-01-24] MEDS ORDERED: Rocuronium Bromide 10 MG/ML (10ML VIAL) ONE (10:56)
[2022-01-24] MEDS ORDERED: Ketorolac Tromethamine 30 MG/ML VIAL ONE (10:56)
[2022-01-24] MEDS ORDERED: Phenazopyridine HCl 100 MG TAB ONE ×2 (12:18)
== END 2022-01-24 14:30 | disposition home or self-care (01) ==
LOC: SDC 07:20
PROVIDERS: ATTEND Urology
DX: N20.0 Calculus of kidney (principal); N40.1 Benign prostatic hyperplasia with lower urinary tract symptoms; N13.8 Other obstructive and reflux uropathy; I12.9 Hypertensive chronic kidney disease with stage 1 through stage 4 chronic kidney disease, or unspecified chronic kidney disease; E11.22 Type 2 diabetes mellitus with diabetic chronic kidney disease; N18.9 Chronic kidney disease, unspecified; M10.9 Gout, unspecified; E66.01 Morbid (severe) obesity due to excess calories; Z68.41 Body mass index [BMI] 40.0-44.9, adult; Z79.82 Long term (current) use of aspirin; Z79.4 Long term (current) use of insulin; Z79.84 Long term (current) use of oral hypoglycemic drugs; Z79.899 Other long term (current) drug therapy; Z88.5 Allergy status to narcotic agent; Z86.73 Personal history of transient ischemic attack (TIA), and cerebral infarction without residual deficits; Z95.1 Presence of aortocoronary bypass graft
CPT/HCPCS: 36416; 74420; 82365; 88300; C2617; J1956; Q9967

== ENCOUNTER 2022-02-03 10:14 | Outpatient (CLI) | payer OTHER | END 2022-02-03 10:15 | disposition home or self-care (01) | LOC: DTY/OP 10:14 | PROVIDERS: ATTEND Specialist | DX: Z01.818 Encounter for other preprocedural examination (principal); E66.01 Morbid (severe) obesity due to excess calories | CPT/HCPCS: 97802 ==

== ENCOUNTER 2022-03-03 15:47 | Outpatient (CLI) | payer OTHER | END 2022-03-03 15:48 | disposition home or self-care (01) | LOC: DTY/OP 15:47 | PROVIDERS: ATTEND Specialist | DX: Z01.818 Encounter for other preprocedural examination (principal); E66.01 Morbid (severe) obesity due to excess calories | CPT/HCPCS: 97802 ==

== ENCOUNTER 2022-06-27 08:19 | Emergency (ER) | payer OTHER | END 2022-06-27 11:37 | disposition home or self-care (01) | LOC: ERS 08:19 | DX: B34.9 Viral infection, unspecified (principal) | CPT/HCPCS: 71045; 87804 ==

== ENCOUNTER 2022-10-04 14:39 | Outpatient (CLI) | payer OTHER | END 2022-10-04 14:40 | disposition home or self-care (01) | LOC: RAD 14:39 | PROVIDERS: ATTEND Internal Medicine | DX: R06.00 Dyspnea, unspecified (principal) | CPT/HCPCS: 71046 ==

== ENCOUNTER 2022-11-09 11:35 | Emergency (ER) | payer OTHER | END 2022-11-09 12:08 | disposition home or self-care (01) | LOC: ERS 11:35 | DX: S80.01XA Contusion of right knee, initial encounter (principal); M17.11 Unilateral primary osteoarthritis, right knee; W18.30XA Fall on same level, unspecified, initial encounter | CPT/HCPCS: 99283 ==

== ENCOUNTER 2023-03-02 14:52 | Outpatient (CLI) | payer OTHER ==
[2023-03-02 15:55] LABS: Hemoglobin 13.3 g/dL (13.5-17.5); Mean Corpuscular HGB CONC 29.2 g/dL (32.0-36.0); Mean Corpuscular Hemoglobin 19.8 pg (27.0-33.0); Mean Platelet Volume 9.9 fl (7.4-10.4); Platelet Count 601 10x3/uL (150-450); RBC Distribution Width 21.4 % (11.5-14.5); Red Blood Cell (RBC) Count 6.71 10x6/uL (4.32-5.72); White Blood Cell (WBC) Count 16.3 10x3/uL (3.5-10.5)
[2023-03-02 16:13] LABS: Bilirubin Neg (Negative); Blood, Urine Negative (Negative); Clarity Clear (Clear); Glucose, Urine (Dipstick) >=1000 mg/dL (Negative); Ketone, Urine Negative (Negative); Leukocyte Negative (Negative); Nitrite Negative (Negative); Protein, Urine (Dipstick) 15 mg/dl (Neg-Trace); Specific Gravity, Urine 1.015 (1.005-1.030); Urobilinogen Normal mg/dL (Less than 2)
[2023-03-02 16:16] LABS: INR-International Normal Ratio 1.1; PTT 29.3 sec (22.0-33.0); Prothrombin Time 11.4 sec (9.5-12.1)
[2023-03-02 16:50] LABS: Anion Gap 16 mmol/L (10-20); BUN (Urea Nitrogen) 18 mg/dL (8.4-25.7); Calc. Creatinine Clearance 0 mL/min (70-130); Calcium 9.2 mg/dL (7.8-10.44); Carbon Dioxide 24 mmol/L (22-29); Chloride 101 mmol/L (98-107); Estimated GFR 53; Glucose 119 mg/dL (70-105); Potassium 4.6 mmol/L (3.5-5.1); Sodium 136 mmol/L (136-145)
[2023-03-02 16:54] LABS: Bacteria/HPF None Seen HPF (None Seen); RBC/HPF None Seen HPF (0-3); Squamous Epithelial None Seen HPF (0-3); WBC/HPF None Seen HPF (0-3)
== END 2023-03-02 14:53 | disposition home or self-care (01) ==
LOC: LABBT 14:52
PROVIDERS: ATTEND Urology
DX: Z01.818 Encounter for other preprocedural examination (principal); E11.22 Type 2 diabetes mellitus with diabetic chronic kidney disease; R97.20 Elevated prostate specific antigen [PSA]; N40.1 Benign prostatic hyperplasia with lower urinary tract symptoms; N20.0 Calculus of kidney; N18.9 Chronic kidney disease, unspecified; I25.10 Atherosclerotic heart disease of native coronary artery without angina pectoris; R80.9 Proteinuria, unspecified; R35.1 Nocturia; F40.240 Claustrophobia; R81 Glycosuria; R21 Rash and other nonspecific skin eruption; I63.89 Other cerebral infarction; M10.9 Gout, unspecified; N52.9 Male erectile dysfunction, unspecified; Z98.890 Other specified postprocedural states
CPT/HCPCS: 71046; 80048; 81001; 85027; 85610; 85730; 87086; 93005; 93010

== ENCOUNTER 2023-03-15 06:45 | Day surgery (SDC) | payer OTHER ==
[2023-03-02 15:30] VITALS: BMI 37.9
[2023-03-15 07:51] LABS: #Basophils 0.2 thou/uL (0.0-0.2); #Eosinphils 0.4 thou/uL (0.0-0.7); #Monocytes 1.2 thou/uL (0.11-0.59); #Neutrophils 14.4 thou/uL (1.40-6.50); %Basophils 1.3 % (0.0-1.0); %Eosinophils 2.2 % (0.0-10.0); %Lymphocytes 10.9 % (21.0-51.0); %Monocytes 6.5 % (0.0-10.0); %Neutrophils 78.3 % (42.0-75.0); Hematocrit 42.1 % (42.0-52.0); Hemoglobin 12.2 g/dL (14.0-18.0); Mean Corpuscular Hemoglobin 19.7 pg (27.0-31.0); Mean Platelet Volume 9.8 fL (7.4-10.4); Platelet Count 432 10x3/uL (130-400); RBC Distribution Width 20.8 % (11.5-14.5); Red Blood Cell (RBC) Count 6.19 mill/uL (4.70-6.10); White Blood Cell (WBC) Count 18.3 10x3/uL (4.8-10.8)
[2023-03-15 08:48] LABS: Microcytosis MODERATE=15-30 cells (100X) (0-5/hpf); Platelet Adequacy Comment Platelets Increased; Polychromasia SLIGHT = 2-3 cells (100X) (0-2/hpf)
== END 2023-03-15 08:31 | disposition home or self-care (01) ==
LOC: SDC 06:45
PROVIDERS: ATTEND Urology
DX: R97.20 Elevated prostate specific antigen [PSA] (principal); E11.22 Type 2 diabetes mellitus with diabetic chronic kidney disease; N18.9 Chronic kidney disease, unspecified; I25.10 Atherosclerotic heart disease of native coronary artery without angina pectoris; I63.89 Other cerebral infarction; R80.9 Proteinuria, unspecified; N40.1 Benign prostatic hyperplasia with lower urinary tract symptoms; R35.1 Nocturia; R81 Glycosuria; N20.0 Calculus of kidney; M10.9 Gout, unspecified; N52.9 Male erectile dysfunction, unspecified; R21 Rash and other nonspecific skin eruption; Z98.890 Other specified postprocedural states
CPT/HCPCS: 36416; 85025

== ENCOUNTER 2023-04-17 15:03 | Outpatient (CLI) | payer OTHER ==
[2023-04-17 16:17] LABS: Hematocrit 44.1 % (38.8-50.0); Hemoglobin 12.9 g/dL (13.5-17.5); Mean Corpuscular HGB CONC 29.3 g/dL (32.0-36.0); Mean Corpuscular Hemoglobin 19.5 pg (27.0-33.0); Mean Corpuscular Volume 66.7 fl (81.2-95.1); Mean Platelet Volume 10.2 fl (7.4-10.4); Platelet Count 431 10x3/uL (150-450); RBC Distribution Width 20.6 % (11.5-14.5); Red Blood Cell (RBC) Count 6.61 10x6/uL (4.32-5.72)
[2023-04-17 16:25] LABS: INR-International Normal Ratio 1.1; PTT 28.4 sec (22.0-33.0); Prothrombin Time 11.5 sec (9.5-12.1)
[2023-04-17 16:28] LABS: Bilirubin Neg (Negative); Blood, Urine Negative (Negative); Clarity Clear (Clear); Glucose, Urine (Dipstick) >=1000 mg/dL (Negative); Ketone, Urine Negative (Negative); Leukocyte Negative (Negative); Nitrite Negative (Negative); Protein, Urine (Dipstick) 30 mg/dl (Neg-Trace); Urobilinogen Normal mg/dL (Less than 2)
[2023-04-17 16:36] LABS: Bacteria/HPF None Seen HPF (None Seen); RBC/HPF None Seen HPF (0-3); Squamous Epithelial None Seen HPF (0-3); WBC/HPF None Seen HPF (0-3)
[2023-04-17 16:38] LABS: Anion Gap 13 mmol/L (10-20); BUN (Urea Nitrogen) 14 mg/dL (8.4-25.7); Calc. Creatinine Clearance 0 mL/min (70-130); Calcium 8.9 mg/dL (7.8-10.44); Carbon Dioxide 24 mmol/L (22-29); Chloride 102 mmol/L (98-107); Estimated GFR 52; Glucose 158 mg/dL (70-105); Potassium 4.2 mmol/L (3.5-5.1); Sodium 135 mmol/L (136-145)
== END 2023-04-17 15:04 | disposition home or self-care (01) ==
LOC: LABBT 15:03
PROVIDERS: ATTEND Urology
DX: Z01.818 Encounter for other preprocedural examination (principal); N40.0 Benign prostatic hyperplasia without lower urinary tract symptoms
CPT/HCPCS: 71046; 80048; 81001; 85027; 85610; 85730; 87086

== ENCOUNTER 2023-04-26 05:58 | Day surgery (SDC) | payer OTHER ==
[2023-04-17 15:21] VITALS: BMI 37.8
[2023-04-26] MEDS ORDERED: fentaNYL 50 mcg/mL 1 mL Vial ONE ×2 (06:17→08:33)
[2023-04-26] MEDS ORDERED: LevoFLOXacin 500 mg/D5W 100 ML BAG ONE (06:30)
[2023-04-26] MEDS ORDERED: Sodium Chloride 0.9% 100 ML ONE (06:30)
[2023-04-26] MEDS ORDERED: cefTRIAXone (ROCEPHIN) 2 GM VIAL ONE (06:30)
[2023-04-26] MEDS ORDERED: PROPOFOL 200 MG/20 ML VIAL ONE (07:44)
[2023-04-26] MEDS ORDERED: Lidocaine 1% PF 5 ML VIAL ONE (07:44)
[2023-04-26] MEDS ORDERED: HYDROcodone/Acetaminophen 5/325 mg Tablet ONE (10:16)
== END 2023-04-26 10:45 | disposition home or self-care (01) ==
LOC: SDC 05:58
PROVIDERS: ATTEND Urology
PROC: 0VB03ZX Excision of Prostate, Percutaneous Approach, Diagnostic (ICD-10-PCS; principal; 2023-04-26)
DX: C61 Malignant neoplasm of prostate (principal); N40.0 Benign prostatic hyperplasia without lower urinary tract symptoms; I12.9 Hypertensive chronic kidney disease with stage 1 through stage 4 chronic kidney disease, or unspecified chronic kidney disease; E11.22 Type 2 diabetes mellitus with diabetic chronic kidney disease; N18.9 Chronic kidney disease, unspecified; M10.9 Gout, unspecified; M19.90 Unspecified osteoarthritis, unspecified site; Z90.49 Acquired absence of other specified parts of digestive tract; Z87.442 Personal history of urinary calculi; Z86.73 Personal history of transient ischemic attack (TIA), and cerebral infarction without residual deficits; Z95.1 Presence of aortocoronary bypass graft; Z79.84 Long term (current) use of oral hypoglycemic drugs; Z79.899 Other long term (current) drug therapy; Z88.5 Allergy status to narcotic agent
CPT/HCPCS: 36416; G0416; J0696; J1956; J2704; J3010; J3490

== ENCOUNTER → 2024-07-03 | Outpatient (CLI) | payer OTHER | LOC: CT 10:49 | PROVIDERS: ATTEND Family Medicine | DX: R19.00 Intra-abdominal and pelvic swelling, mass and lump, unspecified site (principal); K68.9 Other disorders of retroperitoneum | CPT/HCPCS: 74177 ==